=== PATIENT | male | born 1975 | race Caucasian/White ===

== ENCOUNTER 2023-01-02 11:55 | Outpatient (OUT) | payer OTHER, SELFPAY ==
--- NOTE | 2023-01-02 | XR_ITS ---
The [address] [address] Patient Name: RAZA DOOLEY MRN: [id number] date: 1975 Sex: M Assigned Patient Location: [facility] Current Patient Location: [facility] Accession/Order Number: [id number] Exam Date: 01/02/2023 09:00 Report Date: 01/02/2023 09:52 At the request of: ANUEL HARDING Procedure: XR foot RT min 3V PROCEDURE: XR foot RT min 3V HISTORY: RIGHT HEEL PAIN , heel pain COMPARISON: XR foot right 06/20/2022 FINDINGS: BONES:Mechanical fusion of the talocalcaneal joint via 3 lag screws. No convincing hardware fracture or loosening. One of the screws protrudes to the posterior lateral margin of the calcaneus. SOFT TISSUES:No visible soft tissue swelling. EFFUSION:None visible. OTHER: Negative. XR/XR foot RT min 3V IMPRESSION: 1. Stable surgical changes without evidence of hardware failure or change in alignment. 2. One of the screws protrudes through the posterior lateral margin of the calcaneus into the soft tissues and may contribute patient's symptoms, but this is unchanged. Electronically authenticated by: RADHA GREENBERG Date: 01/02/2023 09:52
== END 2023-01-02 11:56 | disposition home or self-care (01) ==
LOC: RAD 11:55
PROVIDERS: Visit Provider Podiatrist Foot & Ankle Surgery
DX: S92.001D Unspecified fracture of right calcaneus, subsequent encounter for fracture with routine healing (principal)
CPT/HCPCS: 73630

== ENCOUNTER 2023-01-10 12:59 | Outpatient (OUT) | payer OTHER, SELFPAY ==
--- NOTE | 2023-01-10 13:11 | CT_ITS ---
The [address] [address] Patient Name: RAZA DOOLEY MRN: [facility]:[id number] date: 1975 Sex: M Assigned Patient Location: CT Current Patient Location: CT Accession/Order Number: [id number] Exam Date: 01/10/2023 13:13 Report Date: 01/10/2023 14:30 At the request of: ANUEL HARDING Procedure: CT ankle RT wo con EXAM: CT ankle RT wo con, [id number] HISTORY: Calcaneus Fracture TECHNIQUE: Helical CT images of the right ankle were obtained without contrast. Multiplanar reformats were generated at the scanner. Dose reduction technique used: Automated exposure control and/or adjustment of the mA and/or kV according to patient size and/or use of iterative reconstruction technique. COMPARISON: CT right ankle 07/09/2022. Right foot x-rays 01/02/2023. FINDINGS: There are 3 talocalcaneal fixation screws which are intact and similar alignment compared with 07/09/2022. Mild lucency surrounding the bone hardware interfaces of all 3 screws is similar compared with 07/09/2022. No significant bony bridging at the talocalcaneal joint. No acute fracture, dislocation, or suspicious osseous lesion. Mild arthritis at the ankle mortise and moderate osteoarthritis at the third tarsometatarsal joint. Moderate osteoarthritis at the calcaneal cuboid joint and minimal osteoarthritis at the talonavicular joint. Laterally subluxed peroneal tendons outside of the retroareolar groove, similar compared with 07/09/2022. There is ill-defined increased attenuation in the soft tissues at the lateral ankle, similar. No loculated fluid collection. No subcutaneous emphysema. CT/CT ankle RT wo con IMPRESSION: No significant bony bridging at the talocalcaneal arthrodesis. There is similar mild lucency at the bone hardware interfaces surrounding all 3 arthrodesis screws which could indicate motion versus infection. Electronically authenticated by: JOSE GIMENEZ Date: 01/10/2023 14:30
== END 2023-01-10 13:00 | disposition home or self-care (01) ==
PROVIDERS: Visit Provider Podiatrist Foot & Ankle Surgery
DX: S92.001A Unspecified fracture of right calcaneus, initial encounter for closed fracture (principal)
CPT/HCPCS: 73700

== ENCOUNTER 2023-02-06 09:47 | Outpatient (OUT) | payer OTHER, SELFPAY ==
--- NOTE | 2023-02-06 09:54 | ECG_ITS ---
The [facility] Test Date: 2023-02-06 Pat Name: RAZA DOOLEY Department: Room: - Gender: Male Analytical Lead: : 1975 Requested By: ANUEL HARDING Order Number: [id number] Reading MD: MARK AMAYA Measurements Intervals [place] Rate: 63 P: 45 PA: 112 QRS: 65 QRSD: 98 T: 69 QT: 392 QTc: 401 Interpretive Statements SINUS RHYTHM WITH SHORT PA INTERVAL No previous ECG available for comparison Electronically Signed On 02-07-2023 6:55:25 EST by MARK AMAYA
--- NOTE | 2023-02-06 10:33 | PM.PRESUREVA ---
History of Present Illness History of Present Illness Chief complaint: Closed Displaced Fracture of Right Calcaneous Narrative: Patient presents for preadmission testing. Please see HPI from Dr. Albert dated 01/23/2023. Review of Systems ROS Narrative Pleaase see ROS from Dr. Albert dated 01/23/2023. [facility] Medical History (Updated 02/06/23 @ 10:32 by Mery Baca NP) Calcaneus fracture ?S92.009A - Unspecified fracture of unspecified calcaneus, initial encounter for closed fracture (ICD-10) GERD (gastroesophageal reflux disease) ?K21.9 - Gastro-esophageal reflux disease without esophagitis (ICD-10) Hypertension ?I10 - Essential (primary) hypertension (ICD-10) Postoperative nausea and vomiting ?R11.2 - Nausea with vomiting, unspecified (ICD-10) ?Z98.890 - Other specified postprocedural states (ICD-10) Presence of functional implant ?Z96.9 - Presence of functional implant, unspecified (ICD-10) Pseudarthrosis after fusion or arthrodesis ?M96.0 - Pseudarthrosis after fusion or arthrodesis (ICD-10) Surgical History (Updated 02/06/23 @ 10:14 by Mery Baca NP) History of foot surgery (09/26/21) ?Z98.890 - Other specified postprocedural states (ICD-10) Family History (Updated 02/06/23 @ 10:14 by Mery Baca NP) Other Family history of brain cancer Family history of diabetes mellitus Family history of hypertension Family history of lung cancer Family history of myocardial infarction Family history of stroke Social History (Updated 02/06/23 @ 10:10 by Mery Baca NP) Within the past year, how often did you have a drink containing alcohol: 2-4 times a month Smoking status: Former smoker Highest level of school completed/degree received: high school graduate Meds Home Medications and Allergies Home Medications Medication Instructions Recorded Confirmed Type cholecalciferol (vitamin D3) 50 50 mcg PO DAILY 02/06/23 02/06/23 History mcg (2,000 unit) capsule losartan 100 mg tablet 100 mg PO DAILY 02/06/23 02/06/23 History meloxicam 15 mg tablet mg PO DAILY PRN pain 02/06/23 History metoprolol tartrate 25 mg tablet 12.5 mg PO Q12H 02/06/23 02/06/23 History omeprazole 20 mg capsule,delayed 20 mg PO DAILY 02/06/23 02/06/23 History release Allergies Allergy/AdvReac Type Severity Reaction Status Date / Time Penicillins Allergy Hives Verified 02/06/23 10:05 Exam Narrative Exam Narrative: Constitutional: Awake, alert, comfortable, well-appearing, nontoxic, interactive, vital signs as charted Head: Normocephalic, atraumatic Neck: Supple, normal appearance, normal range of motion, no meningeal signs, no lymphadenopathy Respiratory: No respiratory distress, breath sounds clear Cardiovascular: Regular rate and rhythm, strong and regular heart tones Neuro: No neurological deficits, normal sensation Psychiatric: Oriented ?3, normal affect Assessment and Plan Assessment and Plan (1) Calcaneus fracture: (2) Presence of functional implant: (3) Pseudarthrosis after fusion or arthrodesis: Plan Right subtalar joint fusion revision, hardware removal, excision of nonunion, possible calcaneal osteotomy, ankle arthrotomy, bone grafting, soft tissue releases scheduled with Dr. Albert 02/18/2023.
== END 2023-02-06 09:48 | disposition home or self-care (01) ==
LOC: PST 09:49
PROVIDERS: Visit Provider Podiatrist Foot & Ankle Surgery
DX: Z01.810 Encounter for preprocedural cardiovascular examination (principal); S92.001A Unspecified fracture of right calcaneus, initial encounter for closed fracture
CPT/HCPCS: 93005; G0463

== ENCOUNTER 2023-02-18 06:14 | Day surgery (SDC) | payer OTHER, SELFPAY ==
[2023-02-06 10:29] VITALS: BP 161/98; PULSE 71; RESP 16; TEMP 36.3; O2SAT 97; BMI 23.6
[2023-02-18] VITALS (13 sets, daily range): BP systolic 109–134; BP diastolic 56–81; PULSE 62–89; RESP 12–36; TEMP 36.1–36.2; O2SAT 93–99; BMI 23.6
--- NOTE | 2023-02-18 | FL_ITS ---
[address] [address] Patient Name: RAZA DOOLEY MRN: [facility]:[id number] date: 1975 Sex: M [facility] Current Patient Location: Accession/Order Number: [id number] Exam Date: 02/18/2023 07:30 Report Date: 02/19/2023 08:13 At the request of: ANUEL HARDING Procedure: FL fluoroscopy <1hr NON-READ EXAM: FL fluoroscopy <1hr NON-READ HISTORY: IMAGING IN OR, RIGHT FOOT PAIN TECHNIQUE: FINDINGS: Please see Operative Report. Electronically authenticated by: RADIOLOGIST NO Date: 02/19/2023 08:13
[2023-02-18 06:35] LABS: Basophils Absolute Auto 0.1 10^3/uL (0.0-0.1); Basophils Percent Auto 0.8 % (0.2-2.0); Eosinophils Absolute Auto 0.2 10^3/uL (0.0-0.7); Eosinophils Percent Auto 3.5 % (0.9-7.0); Hematocrit 41.6 % (42.0-54.0); Hemoglobin 13.6 g/dL (14.0-18.0); Immature Granulocytes Abs Auto 0.01 10^3/uL (0.00-0.03); Immature Granulocytes Pct Auto 0.2 % (0.0-0.5); Lymphocytes Absolute Auto 1.5 10^3/uL (1.2-3.8); Lymphocytes Percent Auto 23.6 % (20.5-60.0); Mean Corpuscular HGB Conc 32.7 g/dL (29.9-35.2); Mean Corpuscular Hemoglobin 30.9 pg (25.9-34.0); Mean Corpuscular Volume 94.5 fL (80.0-94.0); Mean Platelet Volume 8.5 fL (9.5-13.5); Monocytes Absolute Auto 0.6 10^3/uL (0.3-0.8); Monocytes Percent Auto 9.7 % (1.7-12.0); Neutrophils Percent Auto 62.2 % (43.0-75.0); Platelet Count 241 10^3/uL (150-450); White Blood Count 6.4 10^3/uL (4.0-11.0)
[2023-02-18 06:45] LABS: Glucometer 102 mg/dL (74-106)
[2023-02-18] MEDS: LACTATED RINGER'S SOLUTION 1,000 ML 50 ML IV ×2 (07:04→10:16)
--- NOTE | 2023-02-18 07:46 | PM.ORONB ---
Brief Operative Note Date of procedure: 02/18/23 Pre-op diagnosis: right calcaneus fracture, nonunion of subtalar joint fusion Post-op diagnosis: other (right calcaneus fracture, nonunion of subtalar joint fusion, ankle impingement and peroneal tendon tear with dislocation) Procedure: PROCEDURES PERFORMED: RIGHT subtalar joint fusion with excision of nonunion, peroneal tendon repair with fibular osteotomy, harvest of distal tibial bone graft, removal of hardware, stress examination under intraoperative fluoroscopy & application of short leg splint INTRAOPERATIVE FINDINGS: hindfoot in valgus alignment with subfibular impingement and ankle impingement. 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 Peroneal tendon tear with dislocation of the tendons from the fibular groove. The bone quality of the tibia, talus and calcaneus within normal limits. PROCEDURE IN DETAIL: Patient was identified in pre op and consent was reviewed. Correct side and site were identified and marked. Pre-op antibiotics were started. Patient was brought to OR suite and place on table in a supine position. General anesthesia was administered. Tourniquet applied. Operative extremity was prepped and draped in usual sterile fashion. Formal time-out was performed and the foot/ankle were exsanguinated and tourniquet inflated. fluoroscopy was used to identify the screw heads on the posterior calcaneal tuberosity and talar neck. Stab incisions were placed over the screw heads and blunt dissection down to the screw heads was performed. bony overgrowth noted of the screw head within the talar neck which required the incision to be extended in order to clear the bone from the screw head. Guidewires were inserted into the existing screws and after all bone was removed around the screws they were removed with appropriate screwdriver. The screw holes were thoroughly curetted until healthy bleeding bone was notable. Surgical site was irrigated with copious saline. An incision from fibular malleolus to the cuboid was undertaken. Combination of sharp and blunt dissection gained access to the sinus tarsi. All bleeders were tied off or cauterized. EDB muscle was reflected and tagged for later approximation. Sinus tarsectomy was then performed. Hintermann distractor was used to access the subtalar joint which was prepped with curettes, osteotomes, rongeurs and a paddled bur. All fibrous tissue was excised from the joint and no infection was noted. The posterior and the middle facet were thoroughly prepped. once the subtalar joint was prepared range of motion demonstrated dislocation of the peroneal tendons. Surgical site was irrigated several times throughout the procedure. Cerament bone void filler was injected into the screw holes and allowed to harden accordingly the incision used to remove the screw from the talar head was extended proximally thereby exposing the distal tibia. Soft tissue impingement was removed with rongeur as was osteophyte noted on the distal tibia and talar neck which was then smoothed with a rasp. The ankle now had full range of motion without impingement. The incision was then extended proximally over the distal tibia metaphysis. Sharp and blunt dissection down to periosteum was performed. The periosteum was sharply reflected. An 8mm bone harvester was then used according to the flight readiness technician's standard directions to obtain cancellus autograft. 5 cc was obtained and was then mixed with Sparc allograft on the back table. bone graft was then packed into the subtalar joint. The harvest site was then packed with Gelfoam and bone allograft. The periosteum was meticulously reapproximated with absorbable suture and skin was closed with nonabsorbable suture after the site was irrigated. A guidewire was placed from the talar neck and was directed from the talar neck across the subtalar joint and into the calcaneus while holding the heel in a neutral position. Fluoroscopy confirmed proper placement. An 8 mm fully threaded bolt was place over the guidewire and under fluoroscopic guidance. compression was noted of the posterior facet. An additional guide wire was placed placed from the calcaneal tuberosity into the talar body under fluoroscopic guidance. Fluoroscopy confirmed deformity correction and proper placement of the wire. Then an additional 8 mm fully threaded bolt was placed over this wire with additional compression noted across the subtalar joint. Guidewires were then removed and screw position was evaluated on fluoroscopy. Surgical site was irrigated with copious saline. the ankle joint was then stressed in varus, valgus and anterior drawer and was notably stable. The lateral subtalar joint incision was then extended proximally allowing full exposure of the peroneal tendons in the fibular groove. Tendons were debrided and repaired with absorbable suture however with range of motion the tendons did continue to sublux therefore decision was made to perform groove deepening of the fibula. A bur was used to deepen the groove and once of adequate depth the tendons were relocated and were stable with range of motion. The peroneal retinaculum was then repaired with a pants over vest suture technique using absorbable suture. Incisions were then closed in layers and a tourniquet was dropped with a prompt hyperemic response.A dry sterile dressing consisting of Xeroform on the incisions followed by 4 x 4 gauze, ABDs, and Kerlix were applied. Multiple layers of cast padding were then applied to ensure all bony prominences were well-padded. A plaster posterior splint was then applied which was held in place by Darrel wraps. Capillary refill time to all digits was evaluated and had appropriate response. Patient tolerated the procedure and anesthesia well transferred to the recovery room with vital signs stable and brisk capillary refill to digits. POSTOPERATIVE PLAN: Discharge home under family's care Post op instructions provided verbally and written prescription(s) were placed in chart NWB operative foot/ankle x6 wks Follow-up in 1 week Implants: Vilex Redemption 8 mm Bolts (x2); Cerament & Sparc bone allograft Anesthesia: regional and General-LMA Surgeon: Epi Albert Senior Storage Engineer: Honorio Yun Estimated blood loss (mL): 10 Condition: stable Disposition: PACU Preoperative Details Reason for procedure: patient is a 47-year-old male who sustained a right calcaneus fracture as part of a work related injury. His injury required subtalar joint fusion on 09/26/2021. His postoperative course complicated by incision dehiscence which ultimately healed with local wound care. In addition over last year he has pain and dysfunction associated with his right foot and ankle have only worsened and a CT scan obtained last month demonstrated periprosthetic loosening around the hardware and non-united subtalar joint fusion. Today in preoperative holding his exam was consistent with that exam performed on 01/23/23 with pain around the sinus tarsi, pain noted with attempted frontal plane range of motion, pain around the screws in the posterior heel and anterior ankle. There is also pain with maximum ankle joint dorsiflexion which is limited to zero degrees with the knee flexed and extended. Given his painful nonunion which is not improved over the last six months despite activity modification, immobilization, and OTC pain medicine patient wished to proceed with surgical revision and he was educated all potential risks and benefits.
[2023-02-18] MEDS: CLINDAMYCIN PHOSPHATE/D5W 900 MG/50 ML PIGGYBACK 100 MG IV (07:53)
--- NOTE | 2023-02-18 08:12 | PC.NURSE ---
Consent signed with and reviewed again by nurse with the patient. Patient positioned onto abdomen for popliteal block, O2 applied and patient medicated per . Timeout was performed at 0740, block started at 0741 and ended at 0750. Patient monitored throughout block and until taken to OR. Patient tolerated block well.
[2023-02-18] MEDS: THROMBI-GEL SIZE 40 HEMOSTAT 1 EACH TOPICAL (09:52)
--- NOTE | 2023-02-18 10:47 | XR_ITS ---
The [address] [address] Patient Name: RAZA DOOLEY MRN: [facility]:[id number] date: 1975 Sex: M Assigned Patient Location: [facility] Current Patient Location: [facility] Accession/Order Number: [id number] Exam Date: 02/18/2023 11:27 Report Date: 02/19/2023 08:42 At the request of: ANNA THOMPSON Procedure: XR ankle RT min 3V PROCEDURE: XR ankle RT min 3V, XR foot RT min 3V HISTORY: postop x-ray PACU COMPARISON: XR foot right 01/02/2023 FINDINGS: BONES:Prior talocalcaneal fusion with interval removal of one of the screws; there are 2 screws remain. Evidence of bone harvesting from distal tibia. SOFT TISSUES:Mild soft tissue swelling anterior to the ankle. Images were obtained to cast material. EFFUSION:None visible. OTHER: Negative. XR/XR ankle RT min 3V IMPRESSION: 1. Interval removal of one of the screws from prior talocalcaneal fusion. Electronically authenticated by: RADHA GREENBERG Date: 02/19/2023 08:42
--- NOTE | 2023-02-18 10:47 | XR_ITS ---
The [address] [address] Patient Name: RAZA DOOLEY MRN: [facility]:[id number] date: 1975 Sex: M Assigned Patient Location: [facility] Current Patient Location: [facility] Accession/Order Number: [id number] Exam Date: 02/18/2023 11:27 Report Date: 02/19/2023 08:42 At the request of: ANNA THOMPSON Procedure: XR foot RT min 3V PROCEDURE: XR ankle RT min 3V, XR foot RT min 3V HISTORY: postop x-ray PACU COMPARISON: XR foot right 01/02/2023 FINDINGS: BONES:Prior talocalcaneal fusion with interval removal of one of the screws; there are 2 screws remain. Evidence of bone harvesting from distal tibia. SOFT TISSUES:Mild soft tissue swelling anterior to the ankle. Images were obtained to cast material. EFFUSION:None visible. OTHER: Negative. XR/XR foot RT min 3V IMPRESSION: 1. Interval removal of one of the screws from prior talocalcaneal fusion. Electronically authenticated by: RADHA GREENBERG Date: 02/19/2023 08:42
[2023-02-18 11:16] LABS: Glucometer 129 mg/dL (74-106)
[2023-02-18] MEDS: HYDROMORPHONE HCL 0.5 MG/0.5 ML SYRINGE IV (11:22)
[2023-02-18] MEDS: OXYCODONE HCL/ACETAMINOPHEN 5MG/325MG 1 TAB PO (11:23)
== END 2023-02-18 12:30 | disposition home or self-care (01) ==
PROVIDERS: Visit Provider Podiatrist Foot & Ankle Surgery
PROC: (CPT 20680; principal; 2023-02-18 07:30)
DX: S92.001A Unspecified fracture of right calcaneus, initial encounter for closed fracture (principal); M96.0 Pseudarthrosis after fusion or arthrodesis; M25.871 Other specified joint disorders, right ankle and foot; S86.311A Strain of muscle(s) and tendon(s) of peroneal muscle group at lower leg level, right leg, initial encounter
CPT/HCPCS: 20680; 20902; 27625; 27676; 28725; 36415; 64445; 73610; 73630; 76000; 82948; 85025; C1713; J1170

== ENCOUNTER 2023-03-12 09:40 | Outpatient (OUT) | payer OTHER, SELFPAY ==
--- NOTE | 2023-03-12 | XR_ITS ---
The [address] [address] Patient Name: RAZA DOOLEY MRN: [id number] date: 1975 Sex: M Assigned Patient Location: [facility] Current Patient Location: [facility] Accession/Order Number: [id number] Exam Date: 03/12/2023 10:09 Report Date: 03/12/2023 12:24 At the request of: ANUEL HARDING Procedure: XR foot RT min 3V EXAM: XR foot RT min 3V HISTORY: RIGT FOOT PAIN COMPARISON: Foot radiographs from 02/18/2023 TECHNIQUE: AP, lateral, oblique radiographs of the foot labeled right FINDINGS: Postsurgical changes of talocalcaneal fusion revision with two surgical screws in place. No acute fracture or dislocation. Soft tissue swelling about the ankle most notably medially. Heterotopic ossification within the pretibial soft tissues is increased from prior. The subtalar joints are not fused this time. No acute fracture or dislocation. XR/XR foot RT min 3V IMPRESSION: 1. Postsurgical changes of the talocalcaneal fusion revision with unchanged alignment. 2. Increased heterotopic ossification anterior to the tibia. Electronically authenticated by: RAVINDER RUBIO Date: 03/12/2023 12:24
== END 2023-03-12 09:41 | disposition home or self-care (01) ==
LOC: RAD 09:40
PROVIDERS: Visit Provider Podiatrist Foot & Ankle Surgery
DX: S92.001A Unspecified fracture of right calcaneus, initial encounter for closed fracture (principal)
CPT/HCPCS: 73630

== ENCOUNTER 2023-04-02 09:42 | Outpatient (OUT) | payer OTHER, SELFPAY ==
--- NOTE | 2023-04-02 | XR_ITS ---
The [address] [address] Patient Name: RAZA DOOLEY MRN: [id number] date: 1975 Sex: M Assigned Patient Location: [facility] Current Patient Location: [facility] Accession/Order Number: [id number] Exam Date: 04/02/2023 09:45 Report Date: 04/02/2023 10:37 At the request of: ANUEL HARDING Procedure: XR foot RT min 3V STUDY: XR foot RT min 3V, [id number] HISTORY: RIGHT FOOT PAIN COMPARISON: Right foot x-rays 03/12/2023. FINDINGS/IMPRESSION: No acute fracture, dislocation, or suspicious osseous lesion. Status post talocalcaneal arthrodesis. There is been interval bony bridging across the talocalcaneal joint which is near completely ankylosed. The arthrodesis hardware is intact and similar alignment. Mild lucency at the bone hardware interface along the medial arthrodesis screw is similar compared with 03/12/2023. No definite new or worsening lucency at the bone hardware interface. Heterotopic ossification along the soft tissues just anterior to the ankle, similar. Moderate osteoarthritis at the calcaneocuboid joint and mild osteoarthritis at the first metatarsophalangeal joint. Electronically authenticated by: JOSE GIMENEZ Date: 04/02/2023 10:37
== END 2023-04-02 09:43 | disposition home or self-care (01) ==
LOC: RAD 09:42
PROVIDERS: Visit Provider Podiatrist Foot & Ankle Surgery
DX: M96.0 Pseudarthrosis after fusion or arthrodesis (principal)
CPT/HCPCS: 73630

== ENCOUNTER 2023-04-23 09:29 | Outpatient (OUT) | payer OTHER, SELFPAY ==
--- NOTE | 2023-04-23 | XR_ITS ---
The [address] [address] Patient Name: RAZA DOOLEY MRN: [id number] date: 1975 Sex: M Assigned Patient Location: [facility] Current Patient Location: [facility] Accession/Order Number: [id number] Exam Date: 04/23/2023 09:40 Report Date: 04/23/2023 11:27 At the request of: ANUEL HARDING Procedure: XR foot RT min 3V PROCEDURE: XR foot RT min 3V COMPARISON: 04/02/2023 HISTORY: RIGHT FOOT PAIN FINDINGS: BONES:Stable subtalar fusion. Remote resection posterior inferior calcaneus. No acute fracture or dislocation. Stable degenerative changes with joint space narrowing and marginal osteophyte formation. Area of heterotopic calcification anterior to the tibiotalar joint, unchanged SOFT TISSUES:Negative. No visible soft tissue swelling. EFFUSION:None visible. OTHER: Negative. XR/XR foot RT min 3V IMPRESSION: Stable postsurgical changes Electronically authenticated by: MANUELITO LARA Date: 04/23/2023 11:27
--- OUTSIDE RECORDS SUMMARY | 2023-04-23 09:34 | XMS_ITS | CCD ---
Author Name Unknown Address [address] [place] [address] Organization [facility] Care Team Providers Care Field Service Coordinator Name Role Phone NO FAMILY, PHYSICIAN Primary Care Provider Unava JEANNA Tariq Attending Provider Rodrigue Harper MD Primary Care Provider JOSE ALEJANDRO, RODRIGUE Primary Care Unavailable ANUEL ALBERT Referring Unavailable GHAZARIAN, RODRIGUE Primary Care Unavailable GHAZARIAN, [facility] Primary Care Unavailable GHAZARIAN, RODRIGUE Primary Care Unavailable ANUEL ALBERT Referring Unavailable GHAZARIAN, RODRIGUE Primary Care Unavailable ANUEL ALBERT Referring Unavailable GHAZARIAN, RODRIGUE Primary Care Unavailable GHAZARIAN, RODRIGUE Primary Care Unavailable GHAZARIAN, RODRIGUE Primary Care Unavailable ANUEL ALBERT Attending Unavailable MISC, DR APPIAH Primary Care Unavailable ANUEL ALBERT Admitting Unavailable ANUEL ALBERT Attending Unavailable MISGianluca, DR APPIAH Primary Care Unavailable ANUEL ALBERT Admitting Unavailable ANUEL ALBERT Attending Unavailable ANUEL ALBERT Consulting Unavailable ANUEL ALBERT Admitting Unavailable PETER WIGGINS Consulting Unavailable ANUEL ALBERT Admitting Unavailable MISC, DR APPIAH Primary Care Unavailable ANUEL ALBERT Attending Unavailable ANUEL ALBERT Admitting Unavailable WEST, DR MANUELITO Jones Consulting Unavailable MISC, DR APPIAH Primary Care Unavailable ANUEL ALBERT Attending Unavailable ANUEL ALBERT Consulting Unavailable ANUEL ALBERT Admitting Unavailable MISC, DR APPIAH Primary Care Unavailable ANUEL ALBERT Attending Unavailable ANUEL ALBERT Admitting Unavailable WEST, DR MANUELITO Jones Consulting Unavailable ANUEL ALBERT Attending Unavailable MISC, DR APPIAH Primary Care Unavailable ANUEL ALBERT Consulting Unavailable ANUEL ALBERT Attending Unavailable ANUEL ALBERT Admitting Unavailable SAVAGE ., DR JAYLYN Denson Consulting Unavailable Nirmal Lyons Consulting Unavailable ANUEL ALBERT Consulting Unavailable PHILLY VILLANUEVA Consulting Unavailable LÓPEZ ., NGHIA Consulting Unavailable NICOLASA COSBY Consulting Unavailable NIRMAL MARIE Consulting Unavailable MISC, DR APPIAH Primary Care Unavailable SHERRON, NEIL Admitting Unavailable SHERRON, NEIL Attending Unavailable Nirmal Lyons Consulting Unavailable NEIL SIU Consulting Unavailable ANUEL ALBERT Admitting Unavailable WEST, DR MANUELITO Jones Consulting Unavailable MISC, DR APPIAH Primary Care Unavailable MEHDI, ANUEL Raman Attending Unavailable ANUEL ALBERT Consulting Unavailable SHERRON, NEIL Attending Unavailable Nirmal Lyons Consulting Unavailable SHERRON, NEIL Admitting Unavailable SHERRON, NEIL Consulting Unavailable MISC, DR APPIAH Primary Care Unavailable MISC, DR APPIAH Consulting Unavailable SHERRON, NEIL Attending Unavailable SHERRON, NEIL Admitting Unavailable SHERRON, NEIL Consulting Unavailable ANUEL ALBERT Attending Unavailable ANUEL ALBERT Admitting Unavailable ANUEL ALBERT Consulting Unavailable Manuelito Montoya Consulting Unavailable HIGHLANUEL SCHWARTZ Admitting Unavailable WEST, DR MANUELITO Jones Consulting Unavailable REQUEST, DR CAMARENA LISTED Primary Care Unavaila ble ANUEL ALBERT Attending Unavailable ANUEL ALBERT Consulting Unavailable ANUEL ALBERT Admitting Unavailable MIS, DR APPIAH Primary Care Unavailable WEST, DR MANUELITO Jones Consulting Unavailable ANUEL ALBERT Attending Unavailable ANUEL ALBERT Consulting Unavailable Allergies Allergy Classification Reported Allergen(s) Allergy Type Date of Onset Reaction(s) Facility (8 sources) Penicillins Allergy to substance 02-05-2012 [facility] (1 source) Penicillin Drug Allergy [facility] Repository Medications Current Medications Medication Drug Class(es) Dates Sig (Normalized) Sig (Original) acetaminophen 325 mg / HYDROcodone bitartrate 5 mg oral tablet (1 source) Opioid Agonist Start: 01-15-2017 Hydrocodone-Acetamin ophen Active 10 TAB PO every 6 to 8 hours January 15, 2017 2:28pm cyclobenzaprine hydrochloride 10 mg oral tablet (1 source) Muscle Relaxant Start: 01-15-2017 take 10 mg by mouth three times daily Cyclobenzaprine Active 10 MG PO Three times daily January 15, 2017 2:23pm ibuprofen 800 mg oral tablet (7 sources) Nonsteroidal Anti-inflammatory Drug Start: 12-08-2021 take 1 tablet by mouth every eight hours as needed for pain ibuprofen (ADVIL;MOTRIN) 800 MG tablet TAKE 1 TABLET BY MOUTH EVERY 8 HOURS NEEDED FOR PAIN 0 12/08/2021 Active losartan potassium 100 mg oral tablet (7 sources) Angiotensin 2 Receptor Carson Start: 12-26-2021 take 1 tablet by mouth once daily losartan (COZAAR) 100 MG tablet Indications: Essential hypertension Take 1 tablet by mouth daily 90 tablet 1 12/26/2021 Active omeprazole 40 mg delayed release oral capsule (1 source) Proton Pump Inhibitor Start: 01-15-2017 take 40 mg by mouth once daily Omeprazole Active 40 MG PO Daily January 15, 2017 1:45pm Problems Active Problems Problem Classification Problem Date Documented Da te Episodic/Chronic Chronic ulcer of skin (10 sources) Non-pressure chronic ulcer of right ankle with fat layer exposed; Translations: [Non-pressure chronic ulcer of right ankle limited to breakdown of skin] Onset: 11-24-2021 Chronic Esophageal disorders (1 source) Gastro-esophageal reflux disease without esophagitis; Translations: [GERD WITHOUT ESOPHAGITIS] Onset: 10-02-2021 Chronic Essential hypertension (8 sources) Essential hypertension; Translations: [Essential (primary) hypertension] Onset: 05-16-2020 05-16-2020 Chronic Fracture of lower limb (16 sources) Unspecified fracture of right calcaneus, initial encounter for closed fracture; Translations: [Unspecified fracture of right calcaneus, subsequent encounter for fracture with routine healing] Onset: 09-05-2021 Episodic Sprains and strains (1 source) Low back strain; Translations: [Strain of muscle, fascia and tendon of lower back, initial encounter] 01-15-2017 Episodic Unclassified (1 source) CONTACT W/AND (SUSP) EXPOS COVID-19; Translations: [CONTACT W/AND (SUSP) EXPOS COVID-19] Onset: 09-27-2021 Past or Other Problems Problem Classification Problem Date Documented Da te Episodic/Chronic Complications of surgical procedures or medical care (1 source) Disruption of traumatic injury wound repair, sequela; Translations: [DISRUPT TRAUMAT INJ WND REPAIR SEQ] Onset: 01-10-2022 Episodic E Codes: Fall (1 source) Other fall from one level to another, sequela; Translations: [OTH FALL 1 LEVEL TO ANOTHER SEQUELA] Onset: 12-06-2021 Episodic Open wounds of extremities (4 sources) Unspecified open wound, right ankle, initial encounter; Translations: [UNS OPEN WOUND RIGHT ANKLE INITIAL] Onset: 11-20-2021 Episodic Other connective tissue disease (4 sources) Pain in right foot; Translations: [PAIN IN RIGHT FOOT] Onset: 11-20-2021 Episodic Other non-traumatic joint disorders (1 source) Pain in right ankle and joints of right foot; Translations: [PAIN IN RIGHT ANKLE] Onset: 01-10-2022 Episodic Results Test Name Value Interpretation Reference Range Facility CT ANKLE RT WO CONon 023 CT ANKLE RT WO CON EXAMINATION: CT ANKLE RT WO CON HISTORY: Fracture of calcaneus COMPARISON: 09/05/2021 TECHNIQUE: Multi-planar CT images were created without IV contrast. Dose reduction techniques were achieved by using automated exposure control and/or adjustment of mA and/or kV according to patient size and/or use of iterative reconstruction technique. FINDINGS: BONES: Remote healed complex calcaneus fracture with subtalar fusion utilizing 3 screws. 2 of the screws extend from posterior inferior to anterior superior a third screw extends from anterior superior to the posterior calcaneal margin with the screw extending 2 mm beyond the posterior inferior cortex of the calcaneus. No new fracture or dislocation. SOFT TISSUES: Negative. No visible soft tissue swelling. EFFUSION: None visible. OTHER: Negative. IMPRESSION: Remote healed complex calcaneus fracture with internal fixation. One of the subtalar screws extends 8.2 mm beyond the cortex of the posterior inferior calcaneus into the adjacent fat pad of the heel Electronically authenticated by: MANUELITO LARA Date: 2022-07-09 18:28 Normal [facility] WOUND CULTUREon 11-25-2021 Antimicrobial Susceptibility Comment Normal [facility] Comment on above: Result Comment: S = Susceptible; I = Intermediate; R = Resistant P = Positive; N = Negative MICS are expressed in micrograms per mL Antibiotic RSLT#1 RSLT#2 RSLT#3 RSLT#4 Amikacin S Ampicillin R Cefazolin R Cefepime S S Ceftazidime S Ceftriaxone R Cefuroxime R Ciprofloxacin S S Gentamicin S S Imipenem S Levofloxacin S Meropenem S S Piperacillin S Tetracycline R Ticarcillin R Tobramycin S S Trimethoprim/Sulfa S Performed By: #### C XWND ####[facility] [address] [place], [place] [address]Dr. Juan Carlos Francis Bacteria identified Aer cx Nom (Unsp spec) Final report Abnormal [facility] Comment on above: Performed By: #### C XWND ####[facility] [address] [place], [place] [address]Dr. Juan Carlos Francis Result 1 Proteus hauseri Abnormal [facility] Comment on above: Result Comment: Mult i-Drug Resistant Organism Susceptibility profile is consistent with a probable ESBL. Heavy growth Performed By: #### C XWND ####[facility] [address] [place], [place] [address]Dr. Juan Carlos Francis Result 2 Comment Abnormal [facility] Comment on above: Result Comment: Pseu domonas aeruginosa Heavy growth Performed By: #### C XWND ####[facility] P[address] [place], [place] [address]Dr. Juan Carlos Francis CBC AUTO DIFFon 11-20-2021 BASO # 0.1 103/ul Normal 0.0-0.1 [facility] Comment on above: Performed By: #### C BC ####[facility] [address] [place], [place] [address]Dr. Juan Carlos Francis Basophils/100 WBC (Bld) 0.6 % Normal 0.2-2.0 [facility] Comment on above: Performed By: #### C BC ####[facility] [address] [place], [place] [address]Dr. Juan Carlos Francis EO # 0.2 103/ul Normal 0.0-0.7 [facility] Comment on above: Performed By: #### C BC ####[facility] Sit[address] [place], [place] [address]Dr. Juan Carlos Francis Eosinophils/100 WBC (Bld) 2.4 % Normal 0.9-7.0 [facility] Comment on above: Performed By: #### C BC ####[facility] [address] [place], [place] [address]Dr. Juan Carlos Francis Erythrocyte distribution width (RBC) [Ratio] 13.2 % Normal 11.0-15.0 [facility] Comment on above: Performed By: #### C BC ####[facility] [address] [address]Dr. Juan Carlos Francis Hematocrit (Bld) [Volume fraction] 43.4 % Normal 42.0-54.0 [facility] Comment on above: Performed By: #### C BC ####[facility] [address] [place], [place] [address]Dr. Juan Carlos Francis Hemoglobin (Bld) [Mass/Vol] 14.5 g/dL Normal 14.0-18.0 [facility] Comment on above: Performed By: #### C BC ####[facility] Z[address]oly[address] [place], [place] [address]Dr. Juan Carlos Francis IG # 0.02 10e3/ul Normal 0.00-0.03 [facility] Comment on above: Performed By: #### C BC ####[facility] [address] [place], [place] [address]Dr. Siennagualberto Francis IG % 0.2 % Normal 0.0-0.5 [facility] Comment on above: Performed By: #### C BC ####[facility] [address] [place], [place] [address]Dr. Juan Carlos Tito LYMPH # 1.6 103/ul Normal 1.2-3.8 [facility] Comment on above: Performed By: #### C BC ####[facility] [address] [place], [place] [address]Dr. Siennagualberto Francis Lymphocytes/100 WBC (Bld) 20.3 % Critically low 20.5-60.0 [facility] Comment on above: Performed By: #### C BC ####[facility] [address] [place], [place] [address]Dr. Siennagualberto Francis MANUAL DIFF REQ NO Normal [facility] Comment on above: Performed By: #### C BC ####[facility] [address] [place], [place] [address]Dr. Juan Carlos Francis MCH (RBC) [Entitic mass] 29.8 pg Normal 25.9-34.0 [facility] Comment on above: Performed By: #### C BC ####[facility] [address] [address]Dr. Juan Carlos Francis MCHC (RBC) [Mass/Vol] 33.4 g/dL Normal 29.9-35.2 [facility] Comment on above: Performed By: #### C BC ####[facility] [address] [place], [place] [address]DrFortino Francis MCV (RBC) [Entitic vol] 89.1 fL Normal 80.0-94.0 [facility] Comment on above: Performed By: #### C BC ####[facility] Tim[address] [place], [place] [address]DrFortino Francis MONO # 0.6 103/ul Normal 0.3-0.8 [facility] Comment on above: Performed By: #### C BC ####[facility] [address] [place], [place] [address]Dr. Juan Carlos Francis Monocytes/100 WBC (Bld) 6.9 % Normal 1.7-12.0 [facility] Comment on above: Performed By: #### C BC ####[facility] [address] [place], [place] [address]DrFortino Francis NEUT # 5.6 103/ul Normal 1.4-6.5 [facility] Comment on above: Performed By: #### C BC ####[facility] [address] [place], [place] [address]DrFortino Francis Neutrophils/100 WBC (Bld) 69.6 % Normal 43.0-75.0 [facility] Comment on above: Performed By: #### C BC ####[facility] [address] [place], [place] [address]DrFortino Francis Platelet mean volume (Bld) [Entitic vol] 8.3 fL Critically low 9.5-13.5 [facility] Comment on above: Performed By: #### C BC ####[facility] [address] [place], [place] [address]DrFortino Francis PLT 352 103/ul Normal 150-450 [facility] Comment on above: Performed By: #### C BC ####[facility] [address] [address]DrFortino Francis RBC 4.87 106/ul Normal 4.70-6.10 [facility] Comment on above: Performed By: #### C BC ####[facility] [address] [id number] Francis WBC 8.1 103/ul Normal 4.0-11.0 [facility] Comment on above: Performed By: #### C BC ####[facility] [address] [address]DrFortino Francis CRPon 11-20-2021 CRP [Mass/Vol] mg/L Normal <=1.0 [facility] Comment on above: Performed By: #### B MP, CRP #### [facility] [address] [address] [address] Juan Carlos STEELE STAINon 11-20-2021 DIPHTHEROIDS Normal [facility] Comment on above: Performed By: #### G STAIN #### [facility] [address] [address] [address] Juan Carlos Francis EPITHELIALS Normal [facility] Comment on above: Performed By: #### G STAIN #### [facility] [address] [address] [address] Juan Carlos Francis FUNGAL ELEMENTS Normal [facility] Comment on above: Performed By: #### G STAIN #### [facility] [address] [address] [address] Juan Carlos STEELE NEG BACILLI FEW Normal [facility] Comment on above: Performed By: #### G STAIN #### [facility] [address] [address] [address] Juan Carlos STEELE NEG DIPPLOCOCCI Normal [facility] Comment on above: Performed By: #### G STAIN #### [facility] [address] [address] [address] Juan Carlos STEELE POS BACILLI Normal [facility] Comment on above: Performed By: #### G STAIN #### [facility] [address] [place] [address] Dr. Juan Carlos Francis GRAM POSITIVE COCCI FEW Normal [facility] Comment on above: Performed By: #### G STAIN #### [facility] [address] [place] [address] Dr. Juan Carlos Francis GRAM STAIN SOURCE Rt Lateral Ankle Normal T [facility] Comment on above: Performed By: #### G STAIN #### [facility] [address] [place] [address] Dr. Juan Carlos Francis GS_DIPTH Normal [facility] Comment on above: Performed By: #### G STAIN #### [facility] [address] [place] [address] Dr. Juan Carlos Francis WBC RARE Normal [facility] Comment on above: Performed By: #### G STAIN #### [facility] [address] [place] [address] Dr. Juan Carlos Francis PROF CHEM 8 (BAS METB)on Anion gap [Moles/Vol] 14.2 mmol/L [facility] Comment on above: Performed By: #### B MP, CRP #### [facility] [address] [place] [address] Dr. Juan Carlos Francis Calcium [Mass/Vol] 9.1 mg/dL Normal 8.5-10.1 [facility] Comment on above: Performed By: #### B MP, CRP #### [facility] [address] [place] [address] Dr. Juan Carlos Francis Chloride [Moles/Vol] 100 mmol/L Normal 98-107 [facility] Comment on above: Performed By: #### B MP, CRP #### [facility] [address] [place] [address] Dr. Juan Carlos Francis CO2 [Moles/Vol] 30.2 mmol/L Normal 21.0-32.0 [facility] Comment on above: Performed By: #### B MP, CRP #### [facility] [address] [place] [address] Dr. Juan Carlos Francis Creatinine [Mass/Vol] 1.02 mg/dL Normal 0.70-1.30 [facility] Comment on above: Performed By: #### B MP, CRP #### [facility] [address] [place] [address] Dr. Juan Carlos Francis EGFR-AF CHINESE >60 Normal >=60 [facility] Comment on above: Performed By: #### B MP, CRP #### [facility] [address] [address] [address] Juan Carlos Francis EGFR-NON AF CHINESE >60 Normal >=60 [facility] Comment on above: Performed By: #### B MP, CRP #### [facility] [address] [address] [address] Juan Carlos Francis Glucose [Mass/Vol] 113 mg/dL Critically high 74-106 [facility] Comment on above: Performed By: #### B MP, CRP #### [facility] [address] [place] [address] Dr. Juan Carlos Francis Potassium [Moles/Vol] 4.4 mmol/L Normal 3.5-5.1 [facility] Comment on above: Performed By: #### B MP, CRP #### [facility] [address] [place] [address] Dr. Juan Carlos Francis Sodium [Moles/Vol] 140 mmol/L Normal 136-145 [facility] Comment on above: Performed By: #### B MP, CRP #### [facility] [address] [place] [address] Dr. Juan Carlos Francis Urea nitrogen [Mass/Vol] 11.0 mg/dL Normal 7.0-18.0 [facility] Comment on above: Performed By: #### B MP, CRP #### [facility] [address] [place] [address] Dr. Juan Carlos Francis Urea nitrogen/Creatinine [Mass ratio] 10.8 mg/mg Normal [facility] Comment on above: Performed By: #### B MP, CRP #### [facility] [address] [place] [address] Dr. Juan Carlos Francis SED RATE [facility] 2021 SED RATE 3 mm/hr Normal <=15 [facility] Comment on above: Performed By: #### S EDR #### [facility] [address] [place] [address] Dr. Juan Carlos Francis CBC AUTO DIFFon 09-27-2021 BASO # 0.0 103/ul Normal 0.0-0.1 [facility] Comment on above: Performed By: #### C BC #### [facility] [address] [place] [address] Dr. Juan Carlos Francis Basophils/100 WBC (Bld) 0.2 % Normal 0.2-2.0 [facility] Comment on above: Performed By: #### C BC #### [facility] [address] [place] [address] Dr. Juan Carlos Francis EO # 0.1 103/ul Normal 0.0-0.7 [facility] Comment on above: Performed By: #### C BC #### [facility] [address] [place] [address] Dr. Juan Carlos Francis Eosinophils/100 WBC (Bld) 0.5 % Critically low 0.9-7.0 [facility] Comment on above: Performed By: #### C BC #### [facility] [address] [place] [address] Dr. Juan Carlos Francis Erythrocyte distribution width (RBC) [Ratio] 12.4 % Normal 11.0-15.0 [facility] Comment on above: Performed By: #### C BC #### [facility] [address] [place] [address] Dr. Juan Carlos Francis Hematocrit (Bld) [Volume fraction] 38.2 % Critically low 42.0-54.0 [facility] Comment on above: Performed By: #### C BC #### [facility] [address] [place] [address] Dr. Juan Carlos Francis Hemoglobin (Bld) [Mass/Vol] 13.3 g/dL Critically low 14.0-18.0 [facility] Comment on above: Performed By: #### C BC #### [facility] [address] [place] [address] Dr. Juan Carlos Francis IG # 0.11 10e3/ul Critically high 0.00-0.03 [facility] Comment on above: Performed By: #### C BC #### [facility] [address] [place] [address] Dr. Juan Carlos Francis IG % 1.0 % Critically high 0.0-0.5 [facility] Comment on above: Performed By: #### C BC #### [facility] [address] [place] [address] Dr. Juan Carlos Francis LYMPH # 1.1 103/ul Critically low 1.2-3.8 [facility] Comment on above: Performed By: #### C BC #### [facility] [address] [place] [address] Dr. Juan Carlos Francis Lymphocytes/100 WBC (Bld) 9.2 % Critically low 20.5-60.0 [facility] Comment on above: Performed By: #### C BC #### [facility] [address] [place] [address] Dr. Juan Carlos Francis MANUAL DIFF REQ NO Normal [facility] Comment on above: Performed By: #### C BC #### [facility] [address] [place] [address] Dr. Juan Carlos Francis MCH (RBC) [Entitic mass] 30.6 pg Normal 25.9-34.0 [facility] Comment on above: Performed By: #### C BC #### [facility] [address] [place] [address] Dr. Juan Carlos Francis MCHC (RBC) [Mass/Vol] 34.8 g/dL Normal 29.9-35.2 [facility] Comment on above: Performed By: #### C BC #### [facility] [address] [place] [address] Dr. Juan Carlos Francis MCV (RBC) [Entitic vol] 88.0 fL Normal 80.0-94.0 [facility] Comment on above: Performed By: #### C BC #### [facility] [address] [place] [address] Dr. Juan Carlos Francis MONO # 1.2 103/ul Critically high 0.3-0.8 [facility] Comment on above: Performed By: #### C BC #### [facility] [address] [place] [address] Dr. Juan Carlos Francis Monocytes/100 WBC (Bld) 10.2 % Normal 1.7-12.0 [facility] Comment on above: Performed By: #### C BC #### [facility] [address] [place] [address] Dr. Juan Carlos Francis NEUT # 9.1 103/ul Critically high 1.4-6.5 [facility] Comment on above: Performed By: #### C BC #### [facility] [address] [place] [address] Dr. Juan Carlos Francis Neutrophils/100 WBC (Bld) 78.9 % Critically high 43.0-75.0 [facility] Comment on above: Performed By: #### C BC #### [facility] [address] [place] [address] Dr. Juan Carlos Francis Platelet mean volume (Bld) [Entitic vol] 8.9 fL Critically low 9.5-13.5 [facility] Comment on above: Performed By: #### C BC #### [facility] [address] [place] [address] Dr. Juan Carlos Francis PLT 254 103/ul Normal 150-450 [facility] Comment on above: Performed By: #### C BC #### [facility] [address] [place] [address] Dr. Juan Carlos Francis RBC 4.34 106/ul Critically low 4.70-6.10 [facility] Comment on above: Performed By: #### C BC #### [facility] [address] [place] [address] Dr. Juan Carlos Francis WBC 11.6 103/ul Critically high 4.0-11.0 [facility] Comment on above: Performed By: #### C BC #### [facility] [address] [place] [address] Dr. Juan Carlos Francis PROF CHEM 8 (BAS METB)on Anion gap [Moles/Vol] 12.3 mmol/L Normal [facility] Comment on above: Performed By: #### B MP #### [facility] [address] [address] [address] Juan Carlos Francis Calcium [Mass/Vol] 8.7 mg/dL Normal 8.5-10.1 [facility] Comment on above: Performed By: #### B MP #### [facility] [address] [address] [address] Juan Carlos Francis Chloride [Moles/Vol] 95 mmol/L Critically low 98-107 [facility] Comment on above: Performed By: #### B MP #### [facility] [address] [address] [address] Juan Carlos Francis CO2 [Moles/Vol] 29.1 mmol/L Normal 21.0-32.0 [facility] Comment on above: Performed By: #### B MP #### [facility] [address] [address] [address] Juan Carlos Francis Creatinine [Mass/Vol] 1.57 mg/dL Critically high 0.70-1.30 [facility] Comment on above: Performed By: #### B MP #### [facility] [address] [place] [address] Dr. Juan Carlos Francis EGFR-AF CHINESE 58 mL/min/1.73m2 Critically low >=60 [facility] Comment on above: Performed By: #### B MP #### [facility] [address] [address] [address] Juan Carlos Francis EGFR-NON AF CHINESE 48 mL/min/1.73m2 Critically low >=60 [facility] Comment on above: Performed By: #### B MP #### [facility] [address] [address] [address] Juan Carlos Francis Glucose [Mass/Vol] 125 mg/dL Critically high 74-106 [facility] Comment on above: Performed By: #### B MP #### [facility] [address] [address] [address] Juan Carlos Francis Potassium [Moles/Vol] 3.4 mmol/L Critically low 3.5-5.1 [facility] Comment on above: Performed By: #### B MP #### [facility] [address] [address] [address] Juan Carlos Francis Sodium [Moles/Vol] 133 mmol/L Critically low 136-145 Th e [facility] Comment on above: Performed By: #### B MP #### [facility] [id number] Juan Carlos Francis Urea nitrogen [Mass/Vol] 27.0 mg/dL Critically high 7.0-18.0 [facility] Comment on above: Performed By: #### B MP #### [facility] [address] [address] [address] Juan Carlos Francis Urea nitrogen/Creatinine [Mass ratio] 17.2 mg/mg Normal [facility] Comment on above: Performed By: #### B MP #### [facility] [address] [address] [address] Juan Carlos Francis POINT OF CARE GLUCOSEon 07-0 Glucose [Mass/Vol] 115 mg/dL Critically high 74-[address] [facility] Comment on above: Performed By: #### P OCGLUC ####[facility] [address] [id number]. Juan Carlos Francis Covid-19 PCR (CVDTB)on 08-24 SARS-CoV-2 (COVID-19) RNA JOSE M+probe Ql (Unsp spec) Not detected Normal NOT DETECTED [facility] Comment on above: Result Comment: This test is not yet approved or cleared by the [place] FDA. When there are no FDA-approved or cleared tests available, and other criteria are met, FDA can make tests available under an emergency access mechanism called an Emergency Use Authorization (EUA). The EUA for this test is supported by the [place] of Health and Human Service's (HHS's) declaration that circumstances exist to justify the emergency use of in vitro diagnostics for the detection and/or diagnosis of the virus that causes COVID-19. This EUA will remain in effect (meaning this test can be used) for the duration of the COVID-19 declaration justifying emergency of IVDs, unless it is terminated or revoked by FDA (after which the test may no longer be used). When diagnostic testing is negative, the possibility of a false negative should be considered in the context of a patient's recent exposures and the presence of clinical signs and symptoms consistent with SARS-CoV-2. Performed By: #### C VDTB #### [facility] [address] [address] [address] Juan Carlos Francis PROF CHEM 8 (BAS METB)on Anion gap [Moles/Vol] 13.1 mmol/L Normal [facility] Comment on above: Performed By: #### B MP ####[facility] [address] [address]DrFortino Francis Calcium [Mass/Vol] 9.4 mg/dL Normal 8.5-10.1 [facility] Comment on above: Performed By: #### B MP ####[facility] [address] [address]DrFortino Francis Chloride [Moles/Vol] 99 mmol/L Normal 98-107 [facility] Comment on above: Performed By: #### B MP ####[facility] [address] [address]Dr. Juan Carlos Francis CO2 [Moles/Vol] 30.5 mmol/L Normal 21.0-32.0 [facility] Comment on above: Performed By: #### B MP ####[facility] [address] [address]DrFortino Francis Creatinine [Mass/Vol] 1.12 mg/dL Normal 0.70-1.30 [facility] Comment on above: Performed By: #### B MP ####[facility] [address] [address]DrFortino Francis EGFR-AF CHINESE >60 Normal >=60 [facility] Comment on above: Performed By: #### B MP ####[facility] [address] [address]DrFortino Francis EGFR-NON AF CHINESE >60 Normal >=60 [facility] Comment on above: Performed By: #### B MP ####[facility] [address] [place] [id number]. Juan Carlos Francis Glucose [Mass/Vol] 124 mg/dL Critically high 74-[address] [facility] Comment on above: Performed By: #### B MP ####[facility] [address] [place], [place] [address]Rz. Juan Carlos Francis Potassium [Moles/Vol] 3.6 mmol/L Normal 3.5-5.1 [facility] Comment on above: Performed By: #### B MP ####[facility] [address] [place] [id number]. Juan Carlos Francis Sodium [Moles/Vol] 139 mmol/L Normal 136-145 [facility] Comment on above: Performed By: #### B MP ####[facility] [address] [place] [id number]. Juan Carlos Francis Urea nitrogen [Mass/Vol] 7.0 mg/dL Normal 7.0-18.0 [facility] Comment on above: Performed By: #### B MP ####[facility] [address] [place] [id number]. Juan Carlos Francis Urea nitrogen/Creatinine [Mass ratio] 6.2 mg/mg Normal [facility] Comment on above: Performed By: #### B MP ####[facility] [address] [place] [id number]. Juan Carlos Francis CT ANKLE RT WO CONon 022 CT ANKLE RT WO CON EXAMINATION: CT ANKLE RT WO CON HISTORY: Foot pain COMPARISON: X-rays of same day. TECHNIQUE: Axial CT imaging is performed through the ankle and hindfoot sagittal and coronal reformatted/reconstr ucted sequences are obtained Dose reduction techniques were achieved by using automated exposure control and/or adjustment of mA and/or kV according to patient size and/or use of iterative reconstruction technique. FINDINGS: Comminuted displaced and depressed intra-articular fracture of the calcaneus. Large anterior and posterior subtalar joint effusions. Diffuse soft tissue edema. The remainder of the osseous structures are unremarkable. IMPRESSION: Comminuted displaced and depressed intra-articular fracture of the calcaneus. Surgical intervention is necessary. Electronically authenticated by: MANUELITO MONTOYA Date: 2021-09-05 21:41 Normal [facility] XR ankle RT min 3V*on 2021 XR ankle RT min 3V* [facility] [place] [address] [place] [id number] XRay Report Signed Patient: Raza Dooley MR#: [id number] 13 : 1975 Acct:[id number] Age/Sex: 46 / M ADM Date: 09/05/21 Loc: [facility] Room: Type: [facility] Attending Dr: Anuel Albert DPM, MS Copies to: Anuel Albert DPM, Ordering Provider: Anuel Albert DPM, MS Date of Service: 09/05/21 XR/XR ankle RT min 3V*: M25.571 ([id number]) XR/XR foot RT min 3V*: M25.751 XR foot RT min 3V*, XR ankle RT min 3V* 09/05/2021 9:23 AM SIGNS AND SYMPTOMS: Right foot and ankle pain for 2 weeks PROTOCOL: Frontal, lateral, and oblique radiographs of the right ankle. Frontal and oblique radiographs of the right foot. COMPARISON: None FINDINGS: Right ankle: On lateral view there is a fracture of the calcaneus extending to the mid body with loss of the normal Boehler's angle. There is diffuse soft tissue swelling extending along the ankle and into the foot. The ankle mortise is preserved. The medial and lateral malleolus are intact. Right foot: The calcaneal fracture is better demonstrated on ankle radiographs. The remainder of the foot is grossly intact with preservation the joint spaces. There is mild diffuse soft tissue swelling. XR/XR foot RT min 3V* IMPRESSION: Right ankle: On lateral view there is a fracture of the calcaneus extending to the mid body with loss of the normal Boehler's angle. There is diffuse soft tissue swelling extending along the ankle and into the foot. Right foot: No additional fractures. Impression dictated by: Reji Machado M.D.09/05/2021 2:01 PM Dictation Location: [address] [address] Transcribed By: [facility] 09/05/21 1401 Dictated By: Reji Machado II, MD 09/05/21 1357 Signed By: 09/05/21 1401 [facility] XR Ankle Complete Righton XR Ankle Complete Right CLINICAL HISTORY: Trauma with pain. COMPARISON: None. TECHNIQUE: 3 Views were obtained. FINDINGS: There is a comminuted fracture of the calcaneus the portions of the tibia and fibula are visualized appear intact. Ankle mortise is maintained. There is soft tissue swelling adjacent to the calcaneus, especially inferiorly. There is soft tissue swelling at the lateral ankle. There is a joint space effusion at the ankle. The cuboid bone is not well visualized, consider CT scan. IMPRESSION: COMMINUTED FRACTURE OF THE CALCANEUS WITH ADJACENT SOFT TISSUE SWELLING. Report reported and signed by Nela Nunez on 08/28/2021 0815 [facility] Operating Room Manager Encounters Encounter Date Encounter Type Care Provider Facility Start: 08-27-2022 ambulatory ANUEL Raman [facility] Fac lity:H1 Start: 08-13-2022 ambulatory ANUEL Raman [facility] Fac lity:H1 Start: 07-09-2022 End: 07-10-2022 ambulatory ANUEL Raman [facility] Facility:H1 Start: 06-20-2022 End: 06-21-2022 ambulatory ANUEL Raman [facility] Facility:H1 Start: 03-12-2022 End: 03-13-[address] DOCTOR SADLER Facility:H1 Start: 02-16-2022 End: 02-17-2022 ambulatory [facility] Start: 02-12-2022 End: 02-13-2022 ambulatory [facility] Start: 02-05-2022 End: 02-06-2022 ambulatory [facility] Start: 02-05-2022 End: 02-05-2022 Subsequent hospital visit by physician [facility] Comment on above: Arrived Start: 02-02-2022 End: 02-03-2022 [facility] Start: 02-02-2022 End: 02-02-2022 Subsequent hospital visit by physician Peter Valentine [facility] Physical Therapy Comment on above: Arrived Start: 01-31-2022 End: 02-01-2022 [facility] Start: 01-31-2022 End: 01-31-2022 Subsequent hospital visit by physician Peter Valentine [facility] Physical Therapy Comment on above: Arrived Start: 01-29-2022 End: 01-29-2022 Subsequent hospital visit by physician Keerthi Monsalve [facility] Start: 01-26-2022 End: 01-26-2022 Subsequent hospital visit by physician Dena Berkowitz [facility] Physical Therapy Start: 01-26-[address] [facility] Start: 01-25-2022 End: 01-25-2022 Subsequent hospital visit by physician Peter Valentine [facility] Physical Therapy Start: 01-24-2022 End: 01-25-2022 [facility] Start: 01-22-2022 End: 01-23-2022 [facility] Start: 01-22-2022 End: 01-22-2022 Subsequent hospital visit by physician Dena Berkowitz [facility] Physical Therapy Comment on above: Arrived Start: 01-19-2022 End: 01-20-2022 [facility] Start: 12-29-2021 End: 12-30-2021 ambulatory ANUEL ALBERT Facility:H1 Start: 12-08-2021 End: 12-09-2021 ambulatory ANUEL ALBERT Facility:H1 Start: 11-24-2021 End: 11-25-2021 ambulatory ANUEL ALBERT Facility:H1 Start: 11-20-2021 End: 11-21-[address] DOCTOR SADLER Facility:H1 Start: 10-17-2021 End: 10-18-2021 ambulatory [facility] Facility:H1 Start: 09-27-2021 [facility] Start: 09-27-[facility]21 Encounter for preprocedural laboratory examination ANUEL Raman [facility] Start: 09-26-2021 End: 09-27-2021 ambulatory ANUEL ALBERT Facility:H1 Start: 09-19-2021 End: 09-20-2021 ambulatory ANUEL Raman [facility] Facility:H1 Start: 09-19-2021 End: 09-20-2021 Encounter for preprocedural cardiovascular examination ANUEL Raman [facility] Facility:H1 Start: 09-05-2021 End: 09-06-2021 ambulatory [facility] Facility:H1 Start: 09-05-2021 End: 09-05-2021 Patient encounter procedure PHYSICIAN NO FAMILY [facility] Procedures Date Procedure Procedure Detail Performing Clinician Start: 09-05-2021 X-ray of right ankle PH YSICIAN NO FAMILY Start: 09-05-2021 X-ray of right foot PHY SICIAN NO FAMILY Plan of Treatment Date Care Activity Detail Author Start: 12-26-2022 Influenza vaccination Flu vaccine (# 1) [facility] Comment on above: Postponed from 10/23 (Patient Refused) Start: 12-24-2022 End: 12-24-2022 Patient encounter procedure 12/24/2022 Office Visit Family Medicine Rodrigue Haprer MD [address] [place] [address] [facility] Start: 07-03-2022 Depression Screen Depression Screen [facility] Start: 02-21-2022 End: 02-21-2022 Patient encounter procedure 02/21/2022 Appointment Physical Therapy Keerthi Monsalve PT [facility] Start: 02-19-2022 End: 02-19-2022 Patient encounter procedure 02/19/2022 Appointment Physical Therapy Peter Valentine [facility] Start: 02-16-2022 End: 02-16-2022 Patient encounter procedure 02/16/2022 Appointment Physical Therapy Keerthi Monsalve PT [facility] Start: 02-14-2022 End: 02-14-2022 Patient encounter procedure 02/14/2022 Appointment Physical Therapy Keerthi Monsalve, PT [facility] Start: 02-12-2022 End: 02-12-2022 Patient encounter procedure 02/12/2022 Appointment Physical Therapy Peter Valentine [facility] Start: 02-07-2022 End: 02-07-2022 Patient encounter procedure 02/07/2022 Appointment Physical Therapy Peter Valentine [facility] Start: 02-05-2022 End: 02-05-2022 Patient encounter procedure 02/05/2022 Appointment Physical Therapy Peter Valentine [facility] Start: 02-02-2022 End: 02-02-2022 Patient encounter procedure 02/02/2022 Appointment Physical Therapy Peter Valentine [facility] Start: 01-31-2022 End: 01-31-2022 Patient encounter procedure 01/31/2022 Appointment Physical Therapy Peter Valentine [facility] Start: 01-29-2022 End: 01-29-2022 Patient encounter procedure 01/29/2022 Appointment Physical Therapy Keerthi Monsalve PT [facility] Start: 01-26-2022 Subsequent hospital visit by physician 01/26/2022 Hospital Encounter Physical Therapy Dena Berkowitz [facility] Start: 01-25-2022 End: 01-25-2022 Patient encounter procedure 01/25/2022 Appointment Physical Therapy Peter Valentine [facility] Start: 06-03-2019 Screening for malign ant neoplasm of colon [facility] Start: 2014 Lipid panel [facility] Start: 2009 Diabetes screen Diabetes screen [facility] Start: 1993 DTaP/Tdap/Td vaccine (1 - Tdap) DTaP/Tdap/Td vaccine (1 - Tdap) [facility] Start: 1992 Hepatitis C screening Hepatitis C sc reen [facility] Start: 1989 HIV screening HIV screen [facility] Start: 1975 COVID-19 Vaccine (#1) COVID-19 Vacci ne (#1) [facility] Payers Date Payer Category Payer Unknown [id number] 2021 Unknown 2021 [id number] 1975 Unknown [id number] 2.16.840.1.560347.3.579.2.174 1974 Unknown [id number] 2.16.840.1.905024.3.579.2.174 1974 Unknown [id number] 2.16.840.1.928333.3.579.2.174 1974 Unknown [id number] 2.16.840.1.460811.3.579.2.174 1974 Unknown [id number] 2.16.840.1.258515.3.579.2.174 1974 Unknown [id number] 2.16.840.1.935085.3.579.2.174 1974 Unknown [id number] 2.16.840.1.377625.3.579.2.174 1974 Unknown [id number] 2.16.840.1.813234.3.579.2.174 1974 Unknown [id number] 2.16.840.1.658461.3.579.2.593 1974 Unknown [id number] 2.16.840.1.170875.3.579.2.593 1974 Unknown [id number] 2.16.840.1.555066.3.579.2.593 1974 Unknown [id number] 2.16.840.1.858808.3.579.2.593 1974 Unknown [id number] 2.16.840.1.183702.3.579.2.593 1974 Unknown [id number] 2.16.840.1.578628.3.579.2.593 1974 Unknown [id number] 2.16.840.1.602806.3.579.2.593 1974 Unknown [id number] 2.16.840.1.403149.3.579.2.593 1974 Unknown [id number] 2.16.840.1.436906.3.579.2.593 1974 Unknown [id number] 2.16.840.1.997460.3.579.2.593 1974 Unknown [id number] 2.16.840.1.904335.3.579.2.593 1974 Unknown [id number] 2.16.840.1.021632.3.579.2.593 1974 Unknown [id number] 2.16.840.1.415959.3.579.2.593 1974 Unknown [id number] 2.16.840.1.911594.3.579.2.593 1974 Unknown [id number] 2.16.840.1.488635.3.579.2.593 1959 Worker's Compensation [id number] Worker's Compensation Self-pay Self Pay [id number] Worker's Compensation Care Works [facility] [id number] Social History Date Type Detail Facility Start: 03-25-1989 End: 03-25-2018 Tobacco smoking status PAIS Smoker (finding) [facility] Start: 1975 Sex Assigned At Male [facility] Start: 12-26-2021 Tobacco smoking stat us PAIS Ex-smoker [facility] Start: 03-25-1989 End: 03-25-2018 History of tobacco use Cigarette Smoker [facility] Phone: Start: 12-26-2021 Cigarettes smoked current (pack per day) - Reported 0.5 [facility] Phone: Start: 12-26-2021 Tobacco use and exposure User of smokeless tobacco [facility] Phone: History of tobacco use Chews Tobacco [facility] Phone: Start: 12-26-2021 Alcohol intake Current non-dr central office frame wirer of alcohol (finding) [facility] Phone: Start: 07-03-2021 History SDOH Financial 5 [facility] Phone: Start: 07-03-2021 History SDOH Food Worry 1 [facility] Phone: Start: 05-16-2020 History SDOH Transpo rt Med 2 [facility] Phone: Start: 05-16-2020 Education 13 [employer] Phone: Start: 1975 Sex Assigned At Not on file B ON [employer] Phone: Clinical Notes 09-27-2021 to 06-21-2022 Peter Valentine - 02/05/2022 7:30 AM ESTPeter Valentine - 02/02/2022 7:30 AM Niki Valentine - 01/31/2022 7:30 AM ESTAngela Gianluca Cox - 01/29/2022 8:00 AM EST Note Date & Type Note Facility 06-21-2022 Note PROCEDURE: XR FOOT R T MIN 3 VIEWS COMPARISON: 03/12/2022 HISTORY: Pain in right foot FINDINGS: BONES:Subtalar fusion with 3 cannulated screws. No acute fracture, dislocation or mechanical failure. Some lucency surrounds the inferior screw, stable. Mild degenerative changes with joint space narrowing and marginal osteophyte formation. SOFT TISSUES:Mild diffuse soft tissue swelling EFFUSION:None visible. OTHER: Negative. IMPRESSION: Stable subtalar fusion Soft tissue swelling Electronically authenticated by: MANUELITO LARA Date: 2022-06-21 08:09 [facility] 03-12-2022 Note PROCEDURE: XR FOOT R T MIN 3 VIEWS HISTORY: Pain in right foot COMPARISON: XR foot right 02-13 FINDINGS: BONES:Surgical repair of prior calcaneal fracture along with fusion of the talocalcaneal joint via 3 lag screws. The tip of one of the screws protrudes slightly posterior lateral to the calcaneus. SOFT TISSUES:No visible soft tissue swelling. EFFUSION:None visible. OTHER: Negative. IMPRESSION: 1. Stable surgical changes without evidence of hardware failure or change in alignment. 2. Suspect ongoing bone healing. Electronically authenticated by: NIRMAL LYONS Date: 2022-03-12 21:58 [facility] 02-05-2022 History of Present illness Narrative Images from the original note were not included. [facility] Outpatient Physical Therapy Daily Note Date: 02/05/2022 Patient Name: Raza Dooley ACCT#: : 1975 (46 y.o.) Referring Provider (secondary): Dr. Anuel Albert Diagnosis: R ankle pain, fractures R calcaneus Treatment Diagnosis: Right ankle pain Onset Date: 08/26/21 PT Insurance Information: [facility] Total # of Visits Approved: 18 Per Physician Order Total # of Visits to Date: 6 Canceled Appointment: 1 Pre-Treatment Pain: 04/03 Assessment Assessment: Pt rates pain 04/03. Pt notes when no railing he amb down steps non reciprical. Ascends reciprically. Progressed with 4 step down to improve miguel angel to descending stairs. Performed ex/manual as outlined. Will progress. Plan Continue with current plan of care Exercises/Modalities/Manual: See DocFlow Sheet Goals (Total # of Visits to Date: 6) Short Term Goals Time Frame for Short Term Goals: 9 Short Term Goal 1: Patient to be independent with HEP-met Short Term Goal 2: Increase PROM R ankle DF 10 degrees to walk down stairs alternating feet WFL-met Short Term Goal 3: Increase strength R ankle PF 4+/5 to walk with heel to toe gait pattern-met Furniture Maker Goals Time Frame for Furniture Maker Goals : 18 Furniture Maker Goal 1: Improve functional activities with LEFS score >65/80 Prison Goal 2: Patient to hold SLS R Le x10 sec forgood dynamic stability Post Treatment Pain: 04/03 Time In: 0730 Time Out : 0812 Timed Code Treatment Minutes: 42 Minutes Total Treatment Time: 42 Minutes Peter Valentine ASSOCIATION EXECUTIVE Date: 02/05/2022 documented in this encounter [facility] [employer] Phone: 02-02-2022 History of Present illness Narrative Images from the original note were not included. [facility] Outpatient Physical Therapy Daily Note Date: 02/02/2022 Patient Name: Raza Dooley : 1975 (46 y.o.) Referring Provider (secondary): Dr. Anuel Albert Diagnosis: R ankle pain, fractures R calcaneus Treatment Diagnosis: Right ankle pain Onset Date: 08/26/21 PT Insurance Information: [employer] Total # of Visits Approved: 18 Per Physician Order Total # of Visits to Date: 5 Canceled Appointment: 1 Pre-Treatment Pain: 05/04 Assessment Assessment: Pt reports riding 4 murphy yesterday with increased swelling , soreness today 05/04. Increased resistance on shuttle single leg press. Performed ex as outlined followed by manual therapy , reddness persists lateral ankle and foot which pt states is d/t he keeps scrubbing it. Advised him to not scrub this area. Plan Continue with current plan of care Exercises/Modalities/Manual: See DocFlow Sheet Goals (Total # of Visits to Date: 5) Short Term Goals Time Frame for Short Term Goals: 9 Short Term Goal 1: Patient to be independent with HEP-met Short Term Goal 2: Increase PROM R ankle DF 10 degrees to walk down stairs alternating feet WFL-met Short Term Goal 3: Increase strength R ankle PF 4+/5 to walk with heel to toe gait pattern-met Furniture Maker Goals Time Frame for Furniture Maker Goals : 18 Furniture Maker Goal 1: Improve functional activities with LEFS score >65/80 Furniture Maker Goal 2: Patient to hold SLS R Le x10 sec forgood dynamic stability Post Treatment Pain: 05/04 Time In: 0730 Time Out : 0805 Timed and total 35 min Peter Valentine ASSOCIATION EXECUTIVE Date: 02/02/2022 documented in this encounter [facility] Phone: 01-31-2022 History of Present illness Narrative Images from the original note were not included. [facility] Outpatient Physical Therapy Daily Note Date: 01/31/2022 Patient Name: Raza Dooley ACCT#: : 1975 (46 y.o.) Referring Provider (secondary): Dr. Anuel Albert Diagnosis: R ankle pain, fractures R calcaneus Treatment Diagnosis: Right ankle pain Onset Date: 08/26/21 PT Insurance Information: [facility] [facility] Total # of Visits Approved: 18 Per Physician Order Total # of Visits to Date: 4 Canceled Appointment: 1 Pre-Treatment Pain: 0/10 Assessment Assessment: Pt reports he was sick with the flu last week. Pt denies pain.Is compliant with HEP. PROM to 10 deg DF. Strength with MMT PF and DF 5/5. Plan to progress ex. Plan Continue with current plan of care Exercises/Modalities/Manual: See DocFlow Sheet Goals (Total # of Visits to Date: 4) Short Term Goals Time Frame for Short Term Goals: 9 Short Term Goal 1: Patient to be independent with HEP-met Short Term Goal 2: Increase PROM R ankle DF 10 degrees to walk down stairs alternating feet WFL-met Short Term Goal 3: Increase strength R ankle PF 4+/5 to walk with heel to toe gait pattern-met Prison Goals Time Frame for Furniture Maker Goals : 18 Furniture Maker Goal 1: Improve functional activities with LEFS score >65/80 Furniture Maker Goal 2: Patient to hold SLS R Le x10 sec forgood dynamic stability Post Treatment Pain: 0/10 Time In: 0730 Time Out : 0805 Timed and total 35 min Peter Valentine ASSOCIATION EXECUTIVE Date: 01/31/2022 documented in this encounter [facility] Phone: 01-29-2022 History of Present illness Narrative [facility] Date: 01/29/2022 Patient Name: Raza Dooley : 1975 Pt Cancelled Appt due to no reason for cancel. Peter Cox Date: 01/29/2022 [facility] 01-26-[facility]22 History of Present illness Narrative Physical Therapy [facility] Date: 01/26/2022 Patient Name: Raza Dooley : 1975 Patient is not feeling well. Will return on the next appointment. Idania Seo Shock Date: 01/26/2022 [facility]: 01-25-2022 History of Present illness Narrative Images from the original note were not included. [facility] Outpatient Physical Therapy Daily Note Date: 01/25/2022 Patient Name: Raza Dooley ACCT#: : 1975 (46 y.o.) Referring Provider (secondary): Dr. Anuel Albert Diagnosis: R ankle pain, fractures R calcaneus Treatment Diagnosis: Right ankle pain Onset Date: 08/26/21 PT Insurance Information: [facility] Total # of Visits Approved: 18 Per Physician Order Total # of Visits to Date: 3 Pre-Treatment Pain: 04/03 Assessment Assessment: Pt reports primary c/o stiffness, pain 04/03. Performed ex as outlined with progression of heel raise on shuttle . Manual therapy for tissue release, PROM to 6 deg DF. Good miguel angel. Plan Continue with current plan of care Exercises/Modalities/Manual: See DocFlow Sheet Goals (Total # of Visits to Date: 3) Short Term Goals Time Frame for Short Term Goals: 9 Short Term Goal 1: Patient to be independent with HEP-met Short Term Goal 2: Increase PROM R ankle DF 10 degrees to walk down stairs alternating feet WFL Short Term Goal 3: Increase strength R ankle PF 4+/5 to walk with heel to toe gait pattern Furniture Maker Goals Time Frame for Prison Goals : 18 Prison Goal 1: Improve functional activities with LEFS score >65/80 Prison Goal 2: Patient to hold SLS R Le x10 sec forgood dynamic stability Post Treatment Pain: 04/03 Time In: 0730 Time Out : 0812 Timed Code Treatment Minutes: 42 Minutes Total Treatment Time: 42 Minutes Peter Valentine ASSOCIATION EXECUTIVE Date: 01/25/2022 documented in this encounter [facility] [employer] Phone: 01-24-2022 Note PROCEDURE: XR FOOT R T MIN 3 VIEWS COMPARISON: 12/08/2021 HISTORY: Pain in right foot FINDINGS: BONES:Stable complex calcaneal fracture with internal fixation including subtalar fusion with 3 screws. Stable degenerative changes of the midfoot with joint space narrowing and marginal osteophyte formation SOFT TISSUES:Negative. No visible soft tissue swelling. EFFUSION:None visible. OTHER: Negative. IMPRESSION: Stable complex calcaneal fracture with subtalar fusion Electronically authenticated by: MANUELITO LARA Date: 2022-01-24 19:12 [facility] 01-22-2022 History of Present illness Narrative Images from the original note were not included. Physical Therapy [facility] Outpatient Physical Therapy Daily Note Date: 01/22/2022 Patient Name: Raza Dooley : 1975 (46 y.o.) Referring Provider (secondary): Dr. Anuel Albert Diagnosis: R ankle pain, fractures R calcaneus Treatment Diagnosis: Right ankle pain Onset Date: 08/26/21 PT Insurance Information: [facility] Total # of Visits Approved: 18 Per Physician Order Total # of Visits to Date: 2 Pre-Treatment Pain: 05/04 Assessment Assessment: Patient rates pain today as 2/10. Reports soreness following inital eval through the weekend. Progressed with exercises and manual as outlined above. Reports not being able to complete HEP due to forgetting tband at previous visit. Issued blue tband to complete HEP. No pain following session. Plan Continue with current plan of care Exercises/Modalities/Manual: See DocFlow Sheet Education: Goals (Total # of Visits to Date: 2) Short Term Goals Time Frame for Short Term Goals: 9 Short Term Goal 1: Patient to be independent with HEP Short Term Goal 2: Increase PROM R ankle DF 10 degrees to walk down stairs alternating feet WFL Short Term Goal 3: Increase strength R ankle PF 4+/5 to walk with heel to toe gait pattern Furniture Maker Goals Time Frame for Furniture Maker Goals : 18 Prison Goal 1: Improve functional activities with LEFS score >65/80 Furniture Maker Goal 2: Patient to hold SLS R Le x10 sec forgood dynamic stability Post Treatment Pain: 0/10 Time In: 1023 Time Out : 1102 Timed Code Treatment Minutes: 39 Minutes Total Treatment Time:39 Minutes Dena Berkowitz PTA Date: 01/22/2022 documented in this encounter [facility] Phone: 12-08-2021 Note PROCEDURE: XR FOOT R T MIN 3 VIEWS COMPARISON: 11/20/2021 HISTORY: Pain in right foot FINDINGS: BONES:Stable complex calcaneal fracture with subtalar fusion. Continued interval development of sclerosis and bony bridging consistent with healing SOFT TISSUES:Negative. No visible soft tissue swelling. EFFUSION:None visible. OTHER: Negative. IMPRESSION: Stable healing complex calcaneal fracture with internal subtalar fusion/fixation Electronically authenticated by: MANUELITO LARA Date: 2021-12-08 16:34 [facility] 11-20-2021 Note PROCEDURE: XR FOOT R T MIN 3 VIEWS COMPARISON: 10/17/2021 HISTORY: Pain in right foot FINDINGS: BONES:Continued healing of a complex calcaneal fracture. Subtalar fusion with 3 cannulated screws. Moderate degenerative changes of the midfoot with joint space narrowing and marginal osteophyte formation. SOFT TISSUES:Negative. No visible soft tissue swelling. EFFUSION:None visible. OTHER: Negative. IMPRESSION: Continued healing of the complex calcaneal fracture with subtalar fusion Electronically authenticated by: MANUELITO LARA Date: 2021-11-20 11:36 [facility] 10-18-2021 Note PROCEDURE: XR FOOT R T MIN 3 VIEWS HISTORY: Pain in right foot COMPARISON: XR foot right 09/26/2021 FINDINGS: BONES:Mechanical fusion of the talocalcaneal joint and repair of prior calcaneal fracture with stable appearance of the 3 screws. SOFT TISSUES:No visible soft tissue swelling. Cast material has been removed. EFFUSION:None visible. OTHER: Negative. IMPRESSION: 1. Stable surgical changes without evidence of hardware failure or change in alignment. 2. Ongoing healing of calcaneal fracture. Electronically authenticated by: NIRMAL LYONS Date: 2021-10-18 07:52 [facility] 09-27-2021 Note PROCEDURE: XR FOOT R T MIN 3 VIEWS HISTORY: Postoperative care COMPARISON: XR foot right 09/26/2021 intraoperative images FINDINGS: BONES:Postoperative fusion of the calcaneal fracture and talocalcaneal joint via 3 screws. SOFT TISSUES:Expected postsurgical findings. Images were obtained through cast material. EFFUSION:None visible. OTHER: Negative. IMPRESSION: 1. Talocalcaneal joint effusion. 2. Calcaneal fracture fusion/repair. Electronically authenticated by: NIRMAL LYONS Date: 2021-09-27 13:28 [facility] 09-27-2021 Note PROCEDURE: XR FOOT R T 2V HISTORY: Pain COMPARISON: XR ankle and foot right 09/05/2021 FINDINGS: BONES:Multiple intraoperative images demonstrates mechanical fixation of calcaneal fracture and fusion of the talocalcaneal joint via 3 screws. IMPRESSION: 1. Screw fixation of prior calcaneal fracture and fusion of the talocalcaneal joint. Electronically authenticated by: NIRMAL LYONS Date: 2021-09-27 10:56 [facility] Evaluation note No assessment inform ation available [facility] Work Phone: Summary Purpose Family History No Family History Records FoundNo Family History Records FoundNo Family History Records FoundNo Family History Records Found Advance Directives No Advanced Directives Records Found Advance Directive Response Recorded Date/ Time Advance Directives No January 15, 2017 2:07pm Chief Complaint and Reason for Visit Chief Complaint M25.571 Additional Source Comments (unrecognized sect ion and content) No Status Records FoundNo Status Records FoundNo Status Records FoundNo Status Records Found INFORMATION SOURCE (unrecogn ized section and content) DATE CREATED AUTHOR 08/28/2021 [facility] Me dical Specialist DATE CREATED AUTHOR AUTHOR'S ORGANIZ ATION 10/24/2021 [facility] DATE CREATED AUTHOR AUTHOR'S ORGANIZ ATION 02/17/2022 [facility] DATE CREATED AUTHOR AUTHOR'S ORGANIZ ATION 07/12/2022 [facility] Care Teams (unrecognized sec tion and content) Team Status: Inactive Member Role Status Dates PHYSICIAN NO FAMILY Primary Care Provider Active Anuel Albert DPM MS Attending Provider Active Team Status: Active Member Role Status Dates PHYSICIAN NO FAMILY Primary Care Provider Active Field Service Coordinator Relationship Specialty Start Date End Date Rodrigue Harper MD [address] [place] [id number] PCP - General Internal Medicine 05/16/20 Field Service Coordinator Relationship Specialty Start Date End Date Rodrigue Harper MD [address] [place] [id number] PCP - General Internal Medicine 05/16/20 Field Service Coordinator Relationship Specialty Start Date End Date Rodrigue Harper MD [address] [place] [id number] PCP - General Internal Medicine 05/16/20 Field Service Coordinator Relationship Specialty Start Date End Date Rodrigue Harper MD [address] [place], [place] [id number] PCP - General Internal Medicine 05/16/20 Field Service Coordinator Relationship Specialty Start Date End Date Rodrigue Harper MD [address] [place] [id number] PCP - General Internal Medicine 05/16/20 Field Service Coordinator Relationship Specialty Start Date End Date Rodrigue Harper MD [address] [place] [id number] PCP - General Internal Medicine 05/16/20 Goals (unrecognized section and content) Goals may be documented in a n alternate section FOR RECORDS PERTAINING TO PATIENTS WHO ARE OR HAVE BEEN ENROLLED IN A CHEMICAL DEPENDENCY/SUBSTANCEABUSE PROGRAM, SOME INFORMATION MAY BE OMITTED. This clinical summary was aggregated from multiple sources. Caution should be exercised in using it in the provision of clinical care. This summary normalizes information from multiple sources, and as a consequence, information in this document may materially change the coding, format and clinical context of patient data. In addition, data may be omitted in some cases. CLINICAL DECISIONS SHOULD BE BASED ON THE PRIMARY CLINICAL RECORDS. [employer] provides no warranty or guarantee of the accuracy or completeness of information in this document.
== END 2023-04-23 09:30 | disposition home or self-care (01) ==
LOC: RAD 09:29
PROVIDERS: Visit Provider Podiatrist Foot & Ankle Surgery
DX: M96.0 Pseudarthrosis after fusion or arthrodesis (principal)
CPT/HCPCS: 73630

== ENCOUNTER 2023-05-21 09:11 | Outpatient (OUT) | payer OTHER, SELFPAY ==
--- NOTE | 2023-05-21 | XR_ITS ---
[address] [address] Patient Name: RAZA DOOLEY MRN: [id number] date: 1975 Sex: M Assigned Patient Location: Current Patient Location: Accession/Order Number: [id number] Exam Date: 05/21/2023 09:15 Report Date: 05/21/2023 09:32 At the request of: ANUEL HARDING Procedure: XR foot RT min 3V PROCEDURE: XR foot RT min 3V COMPARISON: 04/23/2023 HISTORY: RIGHT FOOT PAIN FINDINGS: BONES:Subtalar fusion with 2 cannulated screws. No new fracture or dislocation. Incomplete bony bridging. Degenerative changes with marginal osteophyte formation and joint space narrowing SOFT TISSUES:Negative. No visible soft tissue swelling. EFFUSION:None visible. OTHER: Negative. XR/XR foot RT min 3V IMPRESSION: Stable subtalar fusion and degenerative changes Electronically authenticated by: MANUELITO LARA Date: 05/21/2023 09:32
== END 2023-05-21 09:12 | disposition home or self-care (01) ==
LOC: EC 09:11
PROVIDERS: Visit Provider Podiatrist Foot & Ankle Surgery
DX: S92.001A Unspecified fracture of right calcaneus, initial encounter for closed fracture (principal); Z98.890 Other specified postprocedural states
CPT/HCPCS: 73630

== ENCOUNTER 2023-06-03 07:54 | Outpatient (OUT) | payer OTHER, SELFPAY ==
--- OUTSIDE RECORDS SUMMARY | 2023-06-03 07:57 | XMS_ITS | CCD ---
Author Name Unknown Address [id number] [place] [address] Organization [facility] Care Team Providers Care Canal Equipment Mechanic Name Role Phone NO FAMILY, PHYSICIAN Primary Care Provider Unava JEANNA Tariq Attending Provider [phone] Rodrigue Harper MD Primary Care Provider ANUEL ALBERT Attending Unavailable MISC, DR APPIAH Primary Care Unavailable ANUEL ALBERT Admitting Unavailable ANUEL ALBERT Attending Unavailable MISC, DR APPIAH Primary Care Unavailable ANUEL ALBERT Admitting Unavailable ANUEL ALBERT Attending Unavailable ANUEL ALBERT Consulting Unavailable ANUEL ALBERT Admitting Unavailable WIGGINS, PETER Consulting Unavailable ANUEL ALBERT Admitting Unavailable MISC, [...] Consulting Unavailable ANUEL ALBERT Attending Unavailable ANUEL ABLERT Admitting Unavailable SAVAGE ., DR FATUMA Denson Consulting Unavailable Nirmal Lyons Consulting Unavailable ANUEL ALBERT Consulting Unavailable PHILLY VILLANUEVA Consulting Unavailable AYYAGARI ., NGHIA Consulting Unavailable NICOLASA COSBY Consulting Unavailable NIRMAL MARIE Consulting Unavailable MISC, DR APPIAH Primary Care Unavailable NEIL HANNA Admitting Unavailable NEIL HANNA Attending Unavailable Nirmal Lyons Consulting Unavailable NEIL HANNA Consulting Unavailable ANUEL ALBERT Admitting Unavailable WEST, DR MANUELITO Jones Consulting Unavailable MISC, DR APPIAH Primary Care Unavailable ANUEL ALBERT Attending Unavailable ANUEL ALBERT Consulting Unavailable NEIL HANNA Attending Unavailable Nirmal Lyons Consulting Unavailable NEIL HANNA Admitting Unavailable NEIL HANNA Consulting Unavailable MIS, DR APPIAH Primary Care Unavailable MISC, DR APPIAH Consulting Unavailable NEIL HANNA Attending Unavailable NEIL HANNA Admitting Unavailable NEIL HANNA Consulting Unavailable ANUEL ALBERT Attending Unavailable ANUEL ALBERT Admitting Unavailable MEHDI, ANUEL Raman Consulting Unavailable Manuelito Montoya Consulting Unavailable ANUEL ALBERT Admitting Unavailable WEST, DR MANUELITO Jones Consulting Unavailable REQUEST, DR CAMARENA LISTED Primary Care Unavaila ble ANUEL ALBERT Attending Unavailable ANUEL ALBERT Consulting Unavailable ANUEL ALBERT Admitting Unavailable MISC, DR APPIAH Primary Care Unavailable WEST, DR MANUELITO Jones Consulting Unavailable ANUEL ALBERT Attending Unavailable ANUEL ALBERT Consulting Unavailable Rodrigue Harper MD Primary Care Provider NEIL HANNA Referring Unavailable RODRIGUE HARPER Primary Care Unavailable NEIL HANNA Referring Unavailable JOSE ALEJANDRO RODRIGUE Primary Care Unavailable JOSE ALEJANDRO RODRIGUE Primary Care Unavailable NEIL HANNA Referring Unavailable Allergies Allergy Classification Reported Allergen(s) Allergy Type Date of Onset Reaction(s) Facility (9 sources) Penicillins Allergy to substance 02-05-2012 [facility] (1 source) Penicillin Drug Allergy [facility] Repository Medications Current Medications Medication Drug Class(es) [...] 2017 2:23pm ibuprofen 800 mg oral tablet (8 sources) Nonsteroidal Anti-inflammatory Drug Start: 12-08-2021 take 1 tablet by mouth every eight hours as needed for pain ibuprofen (ADVIL;MOTRIN) 800 MG tablet TAKE 1 TABLET BY MOUTH EVERY 8 HOURS NEEDED FOR PAIN 0 12/08/2021 Active losartan potassium 100 mg oral tablet (8 sources) Angiotensin 2 Receptor Carson Start: 12-24-2022 take 1 tablet by mouth once daily losartan (COZAAR) 100 MG tablet Indications: Essential hypertension Take 1 tablet by mouth daily 90 tablet 3 12/24/2022 Active Start: 12-26-2021 take 1 tablet by tejal th once daily losartan (COZAAR) 100 MG tablet Indications: Essential hypertension Take 1 tablet by mouth daily 90 tablet 1 12/26/2021 Active metoprolol tartrate 25 mg oral tablet (1 source) beta-Adrenergic Carson Start: 12-24-2022 take 0.5 tablet by mouth twice daily metoprolol tartrate (LOPRESSOR) 25 MG tablet Indications: Essential hypertension Take 0.5 tablets by mouth 2 times daily 90 tablet 1 12/24/2022 Active omeprazole 40 mg delayed release oral [...] WITHOUT ESOPHAGITIS] Onset: 10-02-2021 Chronic Essential hypertension (9 sources) Essential hypertension; Translations: [Essential (primary) hypertension] Onset: 05-16-2020 05-16-2020 Chronic Fracture of lower limb (14 sources) Unspecified fracture of right calcaneus, subsequent encounter for fracture with routine healing; Translations: [Unspecified fracture of right calcaneus, sequela] Onset: 09-05-2021 Episodic Sprains and strains (1 [...] by: MANUELITO LARA Date: 2022-07-09 18:28 Normal [facility] WOUND CULTUREon 11-25-2021 Antimicrobial Susceptibility Comment Normal [facility] Comment on above: Result Comment: S = [...] Trimethoprim/Sulfa S Performed By: #### C XWND ####[facility] [address] [place], [place] [address]Dr. Juan Carlos Francis Bacteria identified Aer cx Nom (Unsp spec) Final report Abnormal [facility] Comment on above: Performed By: #### C XWND ####[facility] [address] [place], [place] [address]Dr. Juan Carlos Francis Result 1 Proteus hauseri Abnormal [facility] Comment on above: Result Comment: Mult i-Drug Resistant Organism Susceptibility profile is consistent with a probable ESBL. Heavy growth Performed By: #### C XWND ####[facility] [address] [place], [place] [address]Dr. Juan Carlos Francis Result 2 Comment Abnormal [facility] Comment on above: Result Comment: Pseu domonas aeruginosa Heavy growth Performed By: #### C XWND ####[facility] [address] [place], [place] [address]Dr. Juan Carlos Francis CBC AUTO DIFFon 11-20-2021 BASO # 0.1 103/ul Normal 0.0-0.1 [facility] Comment on above: Performed By: #### C BC ####[facility] [address] [place], [place] [address]Dr. Juan Carlos Francis Basophils/100 WBC (Bld) 0.6 % Normal 0.2-2.0 [facility] Comment on above: Performed By: #### C BC ####[facility] [address] [place], [place] [address]Dr. Juan Carlos Francis EO # 0.2 103/ul Normal 0.0-0.7 [facility] Comment on above: Performed By: #### C BC ####[facility] [address] [place] [address]Dr. Juan Carlos Francis Eosinophils/100 WBC (Bld) 2.4 % Normal 0.9-7.0 [facility] Comment on above: Performed By: #### C BC ####[facility] [address] [place] [address]Dr. Juan Carlos Francis Erythrocyte distribution width (RBC) [Ratio] 13.2 % Normal 11.0-15.0 [facility] Comment on above: Performed By: #### C BC ####[facility] [address] [place], [place] [address]Dr. Juan Carlos Francis Hematocrit (Bld) [Volume fraction] 43.4 % Normal 42.0-54.0 [facility] Comment on above: Performed By: #### C BC ####[facility] [address] [place], [place] [address]Dr. Juan Carlos Francis Hemoglobin (Bld) [Mass/Vol] 14.5 g/dL Normal 14.0-18.0 [facility] Comment on above: Performed By: #### C BC ####[facility] [address] [place], [place] [address]Dr. Juan Carlos Francis IG # 0.02 10e3/ul Normal 0.00-0.03 [facility] Comment on above: Performed By: #### C BC ####[facility] [address] [place], [place] [address]Dr. Juan Carlos Francis IG % 0.2 % Normal 0.0-0.5 [facility] Comment on above: Performed By: #### C BC ####[facility] [address] [place], [place] [address]Dr. Juan Carlos Francis LYMPH # 1.6 103/ul Normal 1.2-3.8 [facility] Comment on above: Performed By: #### C BC ####[facility] [address] [place], [place] [address]Dr. Juan Carlos Francis Lymphocytes/100 WBC (Bld) 20.3 % Critically low 20.5-60.0 [facility] Comment on above: Performed By: #### C BC ####[facility] [address] [place] [address]Dr. Juan Carlos Francis MANUAL DIFF REQ NO Normal [facility] Comment on above: Performed By: #### C BC ####[facility] [address] [place] [address]Dr. Juan Carlos Francis MCH (RBC) [Entitic mass] 29.8 pg Normal 25.9-34.0 [facility] Comment on above: Performed By: #### C BC ####[facility] [address] [place] [address]Dr. Juan Carlos Francis MCHC (RBC) [Mass/Vol] 33.4 g/dL Normal 29.9-35.2 [facility] Comment on above: Performed By: #### C BC ####[facility] [address] [place], [place] [address]Dr. Juan Carlos Francis MCV (RBC) [Entitic vol] 89.1 fL Normal 80.0-94.0 [facility] Comment on above: Performed By: #### C BC ####[facility] [address] [place], [place] [address]Dr. Juan Carlos Francis MONO # 0.6 103/ul Normal 0.3-0.8 [facility] Comment on above: Performed By: #### C BC ####[facility] [address] [place], [place] [address]Dr. Juan Carlos Francis Monocytes/100 WBC (Bld) 6.9 % Normal 1.7-12.0 [facility] Comment on above: Performed By: #### C BC ####[facility] [address] [place], [place] [address]Dr. Juan Carlos Francis NEUT # 5.6 103/ul Normal 1.4-6.5 [facility] Comment on above: Performed By: #### C BC ####[facility] [address] [place], [place] [address]Dr. Juan Carlos Francis Neutrophils/100 WBC (Bld) 69.6 % Normal 43.0-75.0 [facility] Comment on above: Performed By: #### C BC ####[facility] [address] [place] [address]Dr. Juan Carlos Francis Platelet mean volume (Bld) [Entitic vol] 8.3 fL Critically low 9.5-13.5 [facility] Comment on above: Performed By: #### C BC ####[facility] [address] [place] [address]Dr. Juan Carlos Francis PLT 352 103/ul Normal 150-450 [facility] Comment on above: Performed By: #### C BC ####[facility] [address] [place] [address]Dr. Juan Carlos Francis RBC 4.87 106/ul Normal 4.70-6.10 [facility] Comment on above: Performed By: #### C BC ####[facility] [address] [place] [address]Dr. Juan Carlos Francis WBC 8.1 103/ul Normal 4.0-11.0 [facility] Comment on above: Performed By: #### C BC ####[facility] [address] [place] [address]DrFortino Francis CRPon 11-20-2021 CRP [Mass/Vol] mg/L Normal <=1.0 [facility] Comment on above: Performed By: #### B MP, CRP #### [facility] [address] [address] [address] Juan Carlos STEELE STAINon 11-20-2021 DIPHTHEROIDS Normal [facility] Comment on above: Performed By: #### G STAIN #### [facility] [address] [address] [address] Juan Carlos Francis EPITHELIALS Normal [facility] Comment on above: Performed By: #### G STAIN #### [facility] [address] [address] [address] Juan Carlos Francis FUNGAL ELEMENTS Normal [facility] Comment on above: Performed By: #### G STAIN #### [facility] [address] [address] [address] Yilan Francis GRAM NEG BACILLI FEW Normal [facility] Comment on above: Performed By: #### G STAIN #### [facility] [address] [address] [address] Juan Carlos Francis GRAM NEG DIPPLOCOCCI Normal [facility] Comment on above: Performed By: #### G STAIN #### [facility] [address] [address] [address] Juan Carlos Francis GRAM POS BACILLI Normal [facility] Comment on above: Performed By: #### G STAIN #### [facility] [address] [address] [address] Juan Carlos Francis GRAM POSITIVE COCCI FEW Normal [facility] Comment on above: Performed By: #### G STAIN #### [facility] [address] [address] [address] Juan Carlos Francis GRAM STAIN SOURCE Rt Lateral Ankle Normal [facility] Comment on above: Performed By: #### G STAIN #### [facility] [address] [place] [address] Dr. Juan Carlos Francis GS_DIPTH [facility] Comment on above: Performed By: #### G STAIN #### [facility] [address] [address] [address] Juan Carlos Francis WBC RARE [facility] Comment on above: Performed By: #### G STAIN #### [facility] [address] [place] [address] Dr. Juan Carlos Francis PROF CHEM 8 (BAS METB)on Anion gap [Moles/Vol] 14.2 mmol/L [facility] Comment on above: Performed By: #### B MP, CRP #### [facility] [address] [place] [address] Dr. Juan Carlos Francis Calcium [Mass/Vol] 9.1 mg/dL Normal 8.5-10.1 [facility] Comment on above: Performed By: #### B MP, CRP #### [facility] [address] [place] [address] Dr. Juan Carlos Francis Chloride [Moles/Vol] 100 mmol/L Normal 98-107 [facility] Comment on above: Performed By: #### B MP, CRP #### [facility] [address] [address] [address] Juan Carlos Francis CO2 [Moles/Vol] 30.2 mmol/L Normal 21.0-32.0 [facility] Comment on above: Performed By: #### B MP, CRP #### [facility] [address] [address] [address] Juan Carlos Francis Creatinine [Mass/Vol] 1.02 mg/dL Normal 0.70-1.30 [facility] Comment on above: Performed By: #### B MP, CRP #### [facility] [address] [address] [address] Juan Carlos Francis EGFR-AF WELSH >60 Normal >=60 [facility] Comment on above: Performed By: #### B MP, CRP #### [facility] [address] [address] [address] Juan Carlos Francis EGFR-NON AF WELSH >60 Normal >=60 [facility] Comment on above: Performed By: #### B MP, CRP #### [facility] [address] [address] [address] Juan Carlos Francis Glucose [Mass/Vol] 113 mg/dL Critically high 74-106 [facility] Comment on above: Performed By: #### B MP, CRP #### [facility] [address] [address] [address] Juan Carlos Francis Potassium [Moles/Vol] 4.4 mmol/L Normal 3.5-5.1 [facility] Comment on above: Performed By: #### B MP, CRP #### [facility] [address] [address] [address] Juan Carlos Francis Sodium [Moles/Vol] 140 mmol/L Normal 136-145 [facility] Comment on above: Performed By: #### B MP, CRP #### [facility] [address] [address] [address] Juan Carlos Francis Urea nitrogen [Mass/Vol] 11.0 mg/dL Normal 7.0-18.0 [facility] Comment on above: Performed By: #### B MP, CRP #### [facility] [address] [place] [address] Dr. Juan Carlos Francis Urea nitrogen/Creatinine [Mass ratio] 10.8 mg/mg Normal [facility] Comment on above: Performed By: #### B MP, CRP #### [facility] [address] [place] [address] Dr. Juan Carlos Francis SED RATE WESTERGRENon 2021 SED RATE 3 mm/hr Normal <=15 [facility] Comment on above: Performed By: #### S EDR #### [facility] [address] [place] [address] Dr. Juan Carlos Francis CBC AUTO DIFFon 09-27-2021 BASO # 0.0 103/ul Normal 0.0-0.1 [facility] Comment on above: Performed By: #### C BC #### [facility] [address] [place] [address] Dr. Juan Carlos Francis Basophils/100 WBC (Bld) 0.2 % Normal 0.2-2.0 [facility] Comment on above: Performed By: #### C BC #### [facility] [address] [place] [address] Dr. Juan Carlos Francis EO # 0.1 103/ul Normal 0.0-0.7 [facility] Comment on above: Performed By: #### C BC #### [facility] [address] [place] [address] Dr. Juan Carlos Francis Eosinophils/100 WBC (Bld) 0.5 % Critically low 0.9-7.0 [facility] Comment on above: Performed By: #### C BC #### [facility] [address] [place] [address] Dr. Juan Carlos Francis Erythrocyte distribution width (RBC) [Ratio] 12.4 % Normal 11.0-15.0 [facility] Comment on above: Performed By: #### C BC #### [facility] [address] [place] [address] Dr. Juan Carlos Francis Hematocrit (Bld) [Volume fraction] 38.2 % Critically low 42.0-54.0 [facility] Comment on above: Performed By: #### C BC #### [facility] [address] [address] [address] Juan Carlos Francsi Hemoglobin (Bld) [Mass/Vol] 13.3 g/dL Critically low 14.0-18.0 [facility] Comment on above: Performed By: #### C BC #### [facility] [address] [address] [address] Juan Carlos Francis IG # 0.11 10e3/ul Critically high 0.00-0.03 [facility] Comment on above: Performed By: #### C BC #### [facility] [address] [address] [address] Juan Carlos Francis IG % 1.0 % Critically high 0.0-0.5 [facility] Comment on above: Performed By: #### C BC #### [facility] [address] [address] [address] Juan Carlos Francis LYMPH # 1.1 103/ul Critically low 1.2-3.[address] [facility] Comment on above: Performed By: #### C BC #### [facility] [address] [address] [address] Juan Carlos Francis Lymphocytes/100 WBC (Bld) 9.2 % Critically low 20.5-60.0 [facility] Comment on above: Performed By: #### C BC #### [facility] [address] [address] [address] Juan Carlos Francis MANUAL DIFF REQ NO Normal [facility] Comment on above: Performed By: #### C BC #### [facility] [address] [address] [address] Juan Carlos Francis MCH (RBC) [Entitic mass] 30.6 pg Normal 25.9-34.0 [facility] Comment on above: Performed By: #### C BC #### [facility] [address] [address] [address] Juan Carlos Francis MCHC (RBC) [Mass/Vol] 34.8 g/dL Normal 29.9-35.2 [facility] Comment on above: Performed By: #### C BC #### [facility] [address] [address] [address] Juan Carlos Francis MCV (RBC) [Entitic vol] 88.0 fL Normal 80.0-94.0 [facility] Comment on above: Performed By: #### C BC #### [facility] [address] [address] [address] Juan Carlos Francis MONO # 1.2 103/ul Critically high 0.3-0.8 [facility] Comment on above: Performed By: #### C BC #### [facility] [address] [address] [address] Juan Carlos Francis Monocytes/100 WBC (Bld) 10.2 % Normal 1.7-12.0 [facility] Comment on above: Performed By: #### C BC #### [facility] [address] [address] [address] Juan Carlos Francis NEUT # 9.1 103/ul Critically high 1.4-6.5 [facility] Comment on above: Performed By: #### C BC #### [facility] [address] [address] [address] Juan Carlos Francis Neutrophils/100 WBC (Bld) 78.9 % Critically high 43.0-75.0 [facility] Comment on above: Performed By: #### C BC #### [facility] [address] [address] [address] Juan Carlos Francis Platelet mean volume (Bld) [Entitic vol] 8.9 fL Critically low 9.5-13.5 [facility] Comment on above: Performed By: #### C BC #### [facility] [address] [address] [address] Juan Carlos Francsi PLT 254 103/ul Normal 150-450 [facility] Comment on above: Performed By: #### C BC #### [facility] [address] [address] [address] Juan Carlos Francis RBC 4.34 106/ul Critically low 4.70-6.10 [facility] Comment on above: Performed By: #### C BC #### [facility] [address] [address] [address] Juan Carlos Francis WBC 11.6 103/ul Critically high 4.0-11.0 [facility] Comment on above: Performed By: #### C BC #### [facility] [address] [address] [address] Juan Carlos Francis PROF CHEM 8 (BAS METB)on Anion gap [Moles/Vol] 12.3 mmol/L Normal [facility] Comment on above: Performed By: #### B MP #### [facility] [address] [address] [address] Juan Carlos Francis Calcium [Mass/Vol] 8.7 mg/dL Normal 8.5-10.1 [facility] Comment on above: Performed By: #### B MP #### [facility] [address] [address] [address] Juan Carlos Francis Chloride [Moles/Vol] 95 mmol/L Critically low 98-107 [facility] Comment on above: Performed By: #### B MP #### [facility] [address] [address] [address] Juan Carlos Francis CO2 [Moles/Vol] 29.1 mmol/L Normal 21.0-32.0 [facility] Comment on above: Performed By: #### B MP #### [facility] [address] [address] [address] Juan Carlos Francis Creatinine [Mass/Vol] 1.57 mg/dL Critically high 0.70-1.30 [facility] Comment on above: Performed By: #### B MP #### [facility] [address] [address] [address] Juan Carlos Francis EGFR-AF WELSH 58 mL/min/1.73m2 Critically low >=60 [facility] Comment on above: Performed By: #### B MP #### [facility] [address] [address] [address] Juan Carlos Francis EGFR-NON AF WELSH 48 mL/min/1.73m2 Critically low >=60 [facility] Comment on above: Performed By: #### B MP #### [facility] [address] [place], [place] [address] Dr. Juan Carlos Francis Glucose [Mass/Vol] 125 mg/dL Critically high 74-106 [facility] Comment on above: Performed By: #### B MP #### [facility] [address] [place], [place] [address] Dr. Juan Carlos Francis Potassium [Moles/Vol] 3.4 mmol/L Critically low 3.5-5.1 [facility] Comment on above: Performed By: #### B MP #### [facility] [address] [address] [address] Juan Carlos Francis Sodium [Moles/Vol] 133 mmol/L Critically low 136-145 [facility] Comment on above: Performed By: #### B MP #### [facility] [address] [address] [address] Juan Carlos Francis Urea nitrogen [Mass/Vol] 27.0 mg/dL Critically high 7.0-18.0 [facility] Comment on above: Performed By: #### B MP #### [facility] [address] [address] [address] Juan Carlos Francis Urea nitrogen/Creatinine [Mass ratio] 17.2 mg/mg Normal [facility] Comment on above: Performed By: #### B MP #### [facility] [address] [address] [address] Juan Carlos Francis POINT OF CARE GLUCOSEon Glucose [Mass/Vol] 115 mg/dL Critically high 74-106 [facility] Comment on above: Performed By: #### P OCGLUC ####[facility] [address] [place] [address]Dr. Juan Carlos Francis Covid-19 PCR ([facility])on 08-24 SARS-CoV-2 (COVID-19) RNA JOSE M+probe Ql (Unsp spec) Not detected Normal NOT DETECTED [facility] Comment on above: Result Comment: This test is not yet approved or cleared by the [place] FDA. When there are no FDA-approved or cleared tests available, and other criteria are met, FDA can make tests available under an emergency access mechanism called an Emergency Use Authorization (EUA). The EUA for this test is supported by the [place] of Health and Human Service's (HHS's) declaration [...] consistent with SARS-CoV-2. Performed By: #### [facility] #### [facility] [address] [address] [address] Juan Carlos Francis PROF CHEM 8 (BAS METB)on Anion gap [Moles/Vol] 13.1 mmol/L Normal [facility] Comment on above: Performed By: #### B MP ####[facility] [address] [address]Dr. Juan Carlos Francis Calcium [Mass/Vol] 9.4 mg/dL Normal 8.5-10.1 [facility] Comment on above: Performed By: #### B MP ####[facility] [address] [phone]. Juan Carlos Francis Chloride [Moles/Vol] 99 mmol/L Normal 98-107 [facility] Comment on above: Performed By: #### B MP ####[facility] [address] [id number]. Juan Carlos Francis CO2 [Moles/Vol] 30.5 mmol/L Normal 21.0-32.0 [facility] Comment on above: Performed By: #### B MP ####[facility] [address] [address]DrFortino Francis Creatinine [Mass/Vol] 1.12 mg/dL Normal 0.70-1.30 [facility] Comment on above: Performed By: #### B MP ####[facility] [address] [address]Dr. Juan Carlos Francis EGFR-AF WELSH >60 Normal >=60 [facility] Comment on above: Performed By: #### B MP ####[facility] [address] [address]Dr. Juan Carlos Francis EGFR-NON AF WELSH >60 Normal >=60 [facility] Comment on above: Performed By: #### B MP ####[facility] [address] [id number]. Siennagualberto Tito Glucose [Mass/Vol] 124 mg/dL Critically high 74-106 [facility] Comment on above: Performed By: #### B MP ####[facility] [address] [address]Dr. Juan Carlos Francis Potassium [Moles/Vol] 3.6 mmol/L Normal 3.5-5.1 [facility] Comment on above: Performed By: #### B MP ####[facility] [address] [place], [place] [address]Dr. Juan Carlos Francis Sodium [Moles/Vol] 139 mmol/L Normal 136-145 [facility] Comment on above: Performed By: #### B MP ####[facility] [address] [address]Dr. Siennagualberto Tito Urea nitrogen [Mass/Vol] 7.0 mg/dL Normal 7.0-18.0 [facility] Comment on above: Performed By: #### B MP ####[facility] [address] [place], [place] [address]Dr. Juan Carlos Francis Urea nitrogen/Creatinine [Mass ratio] 6.2 mg/mg Normal [facility] Comment on above: Performed By: #### B MP ####[facility] [address] [place], [place] [address]Dr. Juan Carlos Tito CT ANKLE RT WO CONon 022 CT [...] by: MANUELITO MONTOYA Date: 2021-09-05 21:41 Normal [facility] XR ankle RT min 3V*on 2021 XR ankle RT min 3V* [facility] Main [employer] [address] [place] [address] XRay Report Signed Patient: Raza Dooley MR#: [id number] 13 : 1975 Acct:[id number] Age/Sex: 46 / M ADM Date: 09/05/21 Loc: [facility] [place] [place] Room: Type: [facility] Attending Dr: Anuel Albert DPM MS Copies to: Anuel Albert DPM, Ordering Provider: Anuel Albert DPM, MS Date of Service: 09/05/21 XR/XR ankle RT min 3V*: M25.571 ([id number]) XR/XR foot RT min 3V*: M25.751 XR [...] Reji Machado M.D.09/05/2021 2:01 PM Dictation Location: [place] [address] Transcribed By: [facility] 09/05/21 1401 Dictated By: Reji Machado II, MD 09/05/21 1357 Signed By: 09/05/21 1401 [facility] XR Ankle Complete Righton XR [...] signed by Nela Nunez on 08/28/2021 0815 [facility] [employer] Hand[employer]ching Machine Encounters Encounter Date Encounter Type Care Provider Facility Start: 05-31-2023 End: 06-01-2023 ambulatory [facility] Start: 05-29-2023 End: 05-30-2023 ambulatory [facility] Start: 05-27-2023 End: 05-27-2023 Subsequent hospital visit by physician eDna Berkowitz [facility] Start: 05-24-2023 End: 05-25-2023 ambulatory [facility] Start: 08-27-2022 ambulatory ANUEL ALBERT Faci lity:H1 Start: 08-13-2022 ambulatory ANUEL ALBERT Faci lity:H1 Start: 07-09-2022 End: 07-10-2022 ambulatory ANUEL ALBERT Facility:H1 Start: 06-20-2022 End: 06-21-2022 ambulatory ANUEL ALBERT Facility:H1 Start: 03-12-2022 End: 03-13-[address] DOCTOR SADLER Facility:H1 Start: 02-05-2022 End: 02-05-2022 Subsequent hospital visit by physician Peter Valentine [facility] Comment on above: Arrived Start: 02-02-2022 End: 02-02-2022 Subsequent hospital visit by physician Peter Valentine [facility] Comment on above: Arrived Start: 01-31-2022 End: 01-31-2022 Subsequent hospital visit by physician Peter Valentine [facility] Comment on above: Arrived Start: 01-29-2022 End: 01-29-2022 Subsequent hospital visit by physician Keerthi Monsalve PT [facility] Start: 01-26-2022 End: 01-26-2022 Subsequent hospital visit by physician Dena Berkowitz [facility] Start: 01-25-2022 End: 01-25-2022 Subsequent hospital visit by physician Peter Valentine [facility] Start: 01-24-2022 End: 01-25-2022 ambulatory ANUEL ALBERT Facility:H1 Start: 01-22-2022 End: 01-22-2022 Subsequent hospital visit by physician Dena Berkowitz [facility] Therapy Comment on above: Arrived Start: 12-29-2021 End: 12-30-2021 ambulatory ANUEL ALBERT Facility:H1 Start: 12-08-2021 End: 12-09-2021 ambulatory ANUEL ALBERT Facility:H1 Start: 11-24-2021 End: 11-25-2021 ambulatory ANUEL ALBERT Facility:H1 Start: 11-20-2021 End: 11-21-[address] DOCTOR SADLER Facility:H1 Start: 10-17-2021 End: 10-18-2021 ambulatory NEIL HANNA Facility:H1 Start: 09-27-2021 Encounter for preprocedural cardiovascular examination ANUEL ALBERT [facility] Start: 09-27-2021 Encounter for preprocedural laboratory examination ANUEL ALBERT [facility] Start: 09-26-2021 End: 09-27-2021 ambulatory ANUEL ALBERT Facility:H1 Start: 09-19-2021 End: 09-20-2021 ambulatory ANUEL ALBERT Facility:H1 Start: 09-19-2021 End: 09-20-2021 Encounter for preprocedural cardiovascular examination ANUEL ALBERT Facility:H1 Start: 09-05-2021 End: 09-06-2021 ambulatory ANUEL ALBERT Facility:H1 Start: 09-05-2021 End: 09-05-2021 Patient encounter procedure PHYSICIAN NO FAMILY [facility] Procedures Date Procedure Procedure Detail Performing Clinician Start: 09-05-2021 X-ray of right ankle PH YSICIAN NO FAMILY Start: 09-05-2021 X-ray of right foot PHY SICIAN NO FAMILY Plan of Treatment Date Care Activity Detail Author Start: 12-25-2023 Depression Screen Depression Screen [facility] Start: 06-07-2023 End: 06-07-2023 Patient encounter procedure 06/07/2023 7:30 AM EDT Appointment [facility] [address] [place] [address] Keerthi Monsalve, PT WC-6 of 18 visits valid until 06/28/2023-RT Ankle-[place]/ Peter Gustavoander [facility] Comment on above: WC-6 of 18 visits va lid until 06/28/2023-RT Ankle-[place]/ Peter Highlander Start: 06-05-2023 End: 06-05-2023 Patient encounter procedure 06/05/2023 8:00 AM EDT Appointment [facility] [address] [place] [address] Zach Mock, ELSA WC-5 of 18 visits valid until 06/28/2023-RT Ankle-Fatuma [place]/ Peter Highlander [facility] Comment on above: WC-5 of 18 visits va lid until 06/28/2023-RT Ankle-[place]/ Peter Highlander Start: 06-04-2023 End: 06-04-2023 Patient encounter procedure 06/04/2023 8:00 AM EDT Appointment [facility] [address] [place] [address] Zach Mock, ELSA WC-4 of 18 visits valid until 06/28/2023-RT Ankle-[place]/ Peter Gustavoander [facility] Comment on above: WC-4 of 18 visits va lid until 06/28/2023-RT Ankle-Fatuma [place]/ Anuel Chendaniele Start: 05-31-2023 End: 05-31-2023 Patient encounter procedure 05/31/2023 7:30 AM EST Appointment [facility] [address] [place] [address] Dena Berkowitz WC-3 of 18 visits valid until 06/28/2023-RT Ankle-Fatuma [place]/ Anuel Albert [facility] Comment on above: WC-3 of 18 visits va lid until 06/28/2023-RT Ankle-Fatuma [place]/ Anuel Chendaniele Start: 12-26-2022 Influenza vaccination Flu vaccine (# 1) [facility] Comment on above: Postponed from 10/23 (Patient Refused) Start: 12-24-2022 End: 12-24-2022 Patient encounter procedure 12/24/2022 Office Visit Family Medicine Rodrigue Harper MD [address] [place] [address] [facility] Start: 10-23-2022 Influenza vaccination Flu [facility] (# 1[facility] Start: 07-03-2022 Depression Screen Depression Screen [facility] Start: 02-21-2022 End: 02-21-2022 Patient encounter procedure 02/21/2022 Appointment Physical Therapy Keerthi Monsalve PT [facility] Start: 02-19-2022 End: 02-19-2022 Patient encounter procedure 02/19/2022 Appointment Physical Therapy Peter Valentine [facility] Start: 02-16-2022 End: 02-16-2022 Patient encounter procedure 02/16/2022 Appointment Physical Therapy Keerthi Monsalve PT [facility] Start: 02-14-2022 End: 02-14-2022 Patient encounter procedure 02/14/2022 Appointment Physical Therapy Keerthi Monsalve PT [facility] Start: 02-12-2022 End: 02-12-2022 Patient encounter procedure 02/12/2022 Appointment Physical Therapy Peter Valentine [facility] Start: 02-07-2022 End: 02-07-2022 Patient encounter procedure 02/07/2022 Appointment Physical Therapy Peter Valentine [facility] Start: 02-05-2022 End: 02-05-2022 Patient encounter procedure 02/05/2022 Appointment Physical Peter Gordon [facility] Start: 02-02-2022 End: 02-02-2022 Patient encounter procedure 02/02/2022 Appointment Physical Therapy Peter Valentine [facility] Start: 01-31-2022 End: 01-31-2022 Patient encounter procedure 01/31/2022 Appointment Physical Therapy Peter Valentine [facility] Start: 01-29-2022 End: 01-29-2022 Patient encounter procedure 01/29/2022 Appointment Physical Therapy Keerthi Monsalve PT [facility] Start: 01-26-2022 Subsequent hospital visit by physician 01/26/2022 Hospital Encounter Physical Therapy Dena Berkowitz [facility] Start: 01-25-2022 End: 01-25-2022 Patient encounter procedure 01/25/2022 Appointment Physical Therapy Peter Valentine [facility] Start: 06-03-2019 Screening for malign ant neoplasm of colon [facility] Start: 2014 Lipid panel Lipids [facility] Start: 2009 Diabetes screen Diabetes screen [facility] Start: 1993 DTaP/Tdap/Td vaccine (1 - Tdap) DTaP/Tdap/Td vaccine (1 - Tdap) [facility] Start: 1992 Hepatitis C screening Hepatitis C sc reen [facility] Start: 1989 HIV screening HIV screen [facility] Start: 1975 COVID-19 Vaccine (#1) COVID-19 Vacci ne (#1) [facility] Start: 1974 Hepatitis B vaccine (1 of 3 - 3-dose series) Hepatitis B vaccine (1 of 3 - 3-dose series) [facility] Payers Date Payer Category Payer Unknown [id number] 2021 Unknown 2021 [id number] 1975 Unknown [id number] [id number] 1974 Unknown [id number] 2.16.840.1.085410.3.579.2.593 1974 Unknown [id number] 2.16.840.1.330180.3.579.2.593 1974 Unknown [id number] 2.16.840.1.090485.3.579.2.593 1974 Unknown [id number] 2.16.840.1.923111.3.579.2.593 1974 Unknown [id number] 2.16.840.1.726428.3.579.2.593 1974 Unknown [id number] 2.16.840.1.843807.3.579.2.593 1974 Unknown [id number] 2.16.840.1.464910.3.579.2.593 1974 Unknown [id number] 2.16.840.1.719808.3.579.2.593 1974 Unknown [id number] 2.16.840.1.290374.3.579.2.593 1974 Unknown [id number] 2.16.840.1.881167.3.579.2.593 1974 Unknown [id number] 2.16.840.1.629441.3.579.2.593 1974 Unknown [id number] 2.16.840.1.320654.3.579.2.593 1974 Unknown [id number] 2.16.840.1.526681.3.579.2.593 1974 Unknown [id number] 2.16.840.1.629780.3.579.2.593 1974 Unknown [id number] 2.16.840.1.650441.3.579.2.174 1974 Unknown [id number] 2.16.840.1.600855.3.579.2.174 1974 Unknown [id number] 2.16.840.1.770848.3.579.2.174 1959 Worker's Compensation [id number] Worker's Compensation Self-pay Self Pay [id number] Worker's Compensation Care Works [facility] [id number] Social History Date Type Detail Facility Start: 03-25-1989 End: 03-25-2018 Tobacco smoking status INIS Smoker (finding) [facility] Start: 1975 Sex Assigned At Male [facility] Start: 12-26-2021 [facility] [employer] Start: 03-25-1989 End: 03-25-2018 History of tobacco use Cigarette Smoker [employer] Phone: Start: 12-26-2021 End: 12-24-2022 Cigarettes smoked current (pack per day) - Reported 0.5 [employer] Phone: Start: 12-26-2021 Tobacco use and exposure User of smokeless tobacco [employer] Phone: History of tobacco use Chews Tobacco [employer] Phone: Start: 12-26-2021 End: 12-24-2022 Alcohol intake Current non-drinker of alcohol (finding) [employer] Phone: Start: 07-03-2021 History SDOH Financial 5 [employer] Work Phone: Start: 07-03-2021 History SDOH Food Worry 1 [employer] Work Phone: Start: 05-16-2020 History SDOH Transpo rt Med 2 [employer] Work Phone: Start: 05-16-2020 Education 13 [employer] Work Phone: Start: 1975 Sex Assigned At Not on file B ON [employer] Work Phone: Start: 12-24-2022 Tobacco use panel [employer] How hard is it for y ou to pay for the very basics like food, housing, medical care, and heating Not hard at all [employer] (I/We) worried wheth er (my/our) food would run out before (I/we) got money to buy more. Never true [employer] At any time in the p ast 12 months, were you homeless or living in prison [including now]? No [employer] Clinical Notes 09-27-2021 to 06-21-2022 Peter Valentine - 02/05/2022 7:30 AM Niki Valentine - 02/02/2022 7:30 AM Niki Valentine - 01/31/2022 7:30 AM Niki Cox - 01/29/2022 8:00 AM EST Note [...] authenticated by: MANUELITO LARA Date: 2022-06-21 08:09 [facility] 03-12-2022 Note PROCEDURE: XR FOOT R T [...] authenticated by: NIRMAL LYONS Date: 2022-03-12 21:58 [facility] 02-05-2022 History of Present illness Narrative Images from the original note were not included. [facility] Daily Note Date: 02/05/2022 Patient Name: Raza Dooley ACCT#: : 1975 (46 y.o.) Referring Provider (secondary): Dr. Anule Albert Diagnosis: R ankle pain, fractures R calcaneus Treatment Diagnosis: Right ankle pain Onset Date: 08/26/21 PT Insurance Information: [facility] Total # of Visits Approved: 18 Per [...] walk with heel to toe gait pattern-met Halfway Goals Time Frame for Halfway Goals : 18 Employment Educational Coord Goal 1: Improve functional activities with LEFS score >65/80 Halfway Goal 2: Patient to hold SLS R Le x10 sec forgood dynamic stability Post Treatment Pain: 04/03 Time In: 0730 Time Out : 0812 Timed Code Treatment Minutes: 42 Minutes Total Treatment Time: 42 Minutes Peter Valentine EXECUTIVE ASSISTANT Date: 02/05/2022 documented in this encounter [place] [employer] Phone: 02-02-2022 History of Present illness Narrative Images from the original note were not included. [facility] Daily Note Date: 02/02/2022 Patient Name: Raza Dooley : 1975 (46 y.o.) Referring Provider (secondary): Dr. Anuel Albert Diagnosis: R ankle pain, fractures R calcaneus Treatment Diagnosis: Right ankle pain Onset Date: 08/26/21 PT Insurance Information: [facility] Total # of Visits Approved: 18 Per [...] walk with heel to toe gait pattern-met Halfway Goals Time Frame for Halfway Goals : 18 Employment Educational Coord Goal 1: Improve functional activities with LEFS score >65/80 Employment Educational Coord Goal 2: Patient to hold SLS R Le x10 sec forgood dynamic stability Post Treatment Pain: 2/10 Time In: 0730 Time Out : 0805 Timed and total 35 min Peter Valentine EXECUTIVE ASSISTANT Date: 02/02/2022 documented in this encounter [employer] [employer] Phone: 01-31-2022 History of Present illness Narrative Images from the original note were not included. [facility] Daily Note Date: 01/31/2022 Patient Name: Raza Dooley ACCT#: : 1975 (46 y.o.) Referring Provider (secondary): Dr. Anuel Albert Diagnosis: R ankle pain, fractures R calcaneus Treatment Diagnosis: Right ankle pain Onset Date: 08/26/21 PT Insurance Information: [facility] Total # of Visits Approved: 18 Per [...] walk with heel to toe gait pattern-met Halfway Goals Time Frame for Employment Educational Coord Goals : 18 Halfway Goal 1: Improve functional activities with LEFS score >65/80 Employment Educational Coord Goal 2: Patient to hold SLS R Le x10 sec forgood dynamic stability Post Treatment Pain: 0/10 Time In: 0730 Time Out : 0805 Timed and total 35 min Peter Valentine EXECUTIVE ASSISTANT Date: 01/31/2022 documented in this encounter [facility] [employer] Phone: 01-29-2022 History of Present illness Narrative [facility] Date: 01/29/2022 Patient Name: Raza Dooley : 1975 Pt Cancelled Appt due to no reason for cancel. Peter Cox Date: 01/29/2022 documented in this encounter [facility] [employer] Phone: 01-26-2022 History of Present illness Narrative Physical Therapy [facility] Date: 01/26/2022 Patient Name: Raza Dooley : 1975 Patient is not feeling well. Will return on the next appointment. Idania Holland Date: 01/26/2022 documented in this encounter [facility] [employer] Phone: 01-25-2022 History of Present illness Narrative Images from the original note were not included. [facility] Daily Note Date: 01/25/2022 Patient Name: Raza Dooley ACCT#: : 1975 (46 y.o.) Referring Provider (secondary): Dr. Anuel Albert Diagnosis: R ankle pain, fractures R calcaneus Treatment Diagnosis: Right ankle pain Onset Date: 08/26/21 PT Insurance Information: [facility] Total # of Visits Approved: 18 Per [...] walk with heel to toe gait pattern Halfway Goals Time Frame for Halfway Goals : 18 Employment Educational Coord Goal 1: Improve functional activities with LEFS score >65/80 Employment Educational Coord Goal 2: Patient to hold SLS R Le x10 sec forgood dynamic stability Post Treatment Pain: 04/03 Time In: 0730 Time Out : 0812 Timed Code Treatment Minutes: 42 Minutes Total Treatment Time: 42 Minutes Peter Valentine EXECUTIVE ASSISTANT Date: 01/25/2022 [facility] Phone: 01-24-2022 Note PROCEDURE: XR FOOT R [...] by: MANUELITO LARA Date: 2022-01-24 19:12 [facility] 01-22-2022 History of Present illness Narrative Images from the original note were not included. Physical Therapy [facility] Daily Note Date: 01/22/2022 Patient Name: Raza Dooley : 1975 (46 y.o.) Referring Provider (secondary): Dr. Anuel Albert Diagnosis: R ankle pain, fractures R calcaneus Treatment Diagnosis: Right ankle pain Onset Date: 08/26/21 PT Insurance Information: [facility] Total # of Visits Approved: 18 Per Physician Order Total # of Visits to Date: 2 Pre-Treatment Pain: 2/10 Assessment Assessment: Patient rates pain today as [...] walk with heel to toe gait pattern Employment Educational Coord Goals Time Frame for Employment Educational Coord Goals : 18 Employment Educational Coord Goal 1: Improve functional activities with LEFS score >65/80 Halfway Goal 2: Patient to hold SLS R Le x10 sec forgood dynamic stability Post Treatment Pain: 0/10 Time In: 1023 Time Out : 1102 Timed Code Treatment Minutes: 39 Minutes Total Treatment Time:39 Minutes Dena Berkowitz PTA Date: 01/22/2022 documented in this encounter [employer] Phone: 12-08-2021 Note PROCEDURE: XR FOOT R [...] authenticated by: MANUELITO LARA Date: 2021-12-08 16:34 [facility] 11-20-2021 Note PROCEDURE: XR FOOT R T [...] by: MANUELITO LARA Date: 2021-11-20 11:36 [facility] 10-18-2021 Note PROCEDURE: XR FOOT R T [...] by: NIRMAL LYONS Date: 2021-10-18 07:52 [facility] 09-27-2021 Note PROCEDURE: XR FOOT R T [...] authenticated by: NIRMAL LYONS Date: 2021-09-27 13:28 [facility] 09-27-2021 Note PROCEDURE: XR FOOT R T 2V HISTORY: Pain COMPARISON: XR ankle and foot right 09/05/2021 FINDINGS: BONES:Multiple intraoperative images demonstrates mechanical fixation of calcaneal fracture and fusion of the talocalcaneal joint via 3 screws. IMPRESSION: 1. Screw fixation of prior calcaneal fracture and fusion of the talocalcaneal joint. Electronically authenticated by: NIRMAL LYONS Date: 2021-09-27 10:56 [facility] Evaluation note No assessment inform ation available [facility] Work Phone: Summary Purpose Family History No [...] section and content) DATE CREATED AUTHOR 08/28/2021 [facility] dical Specialist DATE CREATED AUTHOR AUTHOR'S ORGANIZ ATION 10/24/2021 [facility] DATE CREATED AUTHOR AUTHOR'S ORGANIZ ATION 07/12/2022 [facility] DATE CREATED AUTHOR AUTHOR'S ORGANIZ ATION 06/01/2023 Cherise Burkett [facility] Care Teams (unrecognized sec tion and content) Team Status: Inactive Member Role Status Dates PHYSICIAN NO FAMILY Primary Care Provider Active Anuel Albert DPM MS Attending Provider Active Team Status: Active Member Role Status Dates PHYSICIAN NO FAMILY Primary Care Provider Active Canal 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 Start Date End Date Rodrigue Harper MD [address] [place], [place] [id number] PCP - General Internal Medicine 05/16/20 Canal 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 Specialty Start Date End Date Rodrigue Harper MD [address] [place], [place] [id number] PCP - General Internal Medicine 05/16/20 Canal 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 Specialty Start Date End Date Rodrigue Harper MD [address] [place] [id number] PCP - General Internal Medicine 05/16/20 Canal 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 Specialty Start Date End Date Rodrigue Harper MD [address] [place] [id number] PCP - General Internal Medicine 05/16/20 Canal 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 Specialty Start Date End Date Rodrigue Harper MD [address] [place] [id number] PCP - General Internal Medicine 05/16/20 Canal 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 Specialty Start Date End Date Rodrigue Harper MD [address] [place] [id number] PCP - General Internal Medicine 05/16/20 Canal 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 Specialty Start Date End Date Rodrigue Harper MD [address] [place] [id number] PCP - General Internal Medicine 05/16/20 Goals [...] BE BASED ON THE PRIMARY CLINICAL RECORDS. [employer] [facility]. provides no warranty or guarantee of the accuracy or completeness of information in this document.
--- NOTE | 2023-06-03 08:13 | CT_ITS ---
The [address] [address] Patient Name: RAZA DOOLEY MRN: [facility]:[id number] date: 1975 Sex: M Assigned Patient Location: CT Current Patient Location: CT Accession/Order Number: [id number] Exam Date: 06/03/2023 08:07 Report Date: 06/03/2023 09:01 At the request of: ANUEL HARDING Procedure: CT ankle RT wo con EXAMINATION: CT ankle RT wo con HISTORY: Unspecified Fracture Of Right Calcaneus S92.001A COMPARISON: 01/10/2023 TECHNIQUE: Multi-planar CT images were created without IV contrast. Dose reduction techniques were achieved by using automated exposure control and/or adjustment of mA and/or kV according to patient size and/or use of iterative reconstruction technique. FINDINGS: BONES: Subtalar fusion with heterogeneous appearance of the calcaneus likely representing remote healed fracture. There is been interval exchange of previously noted hardware with 2 cannulated screws now observed 1 screw from cranial to caudal extends to the cortical margin along the posterior plantar calcaneus/heel. A second screw extends caudal to cranial with an associated 7 mm osteochondral defect along the talar dome. Lucency in the distal tibia likely from bone graft harvesting. SOFT TISSUES: Mild diffuse soft tissue swelling EFFUSION: None visible. OTHER: Negative. CT/CT ankle RT wo con IMPRESSION: Subtalar fusion with 7 mm osteochondral defect of the talus associated with the tip of one of the fixation screws Electronically authenticated by: MANUELITO LARA Date: 06/03/2023 09:01
== END 2023-06-03 07:55 | disposition home or self-care (01) ==
LOC: CT 07:54
PROVIDERS: Visit Provider Podiatrist Foot & Ankle Surgery
DX: S92.001A Unspecified fracture of right calcaneus, initial encounter for closed fracture (principal); M96.0 Pseudarthrosis after fusion or arthrodesis
CPT/HCPCS: 73700

== ENCOUNTER 2023-09-25 09:35 | Outpatient (OUT) | payer OTHER, SELFPAY ==
--- NOTE | 2023-09-25 | XR_ITS ---
The [address] [address] Patient Name: RAZA DOOLEY MRN: [id number] date: 1975 Sex: M Assigned Patient Location: Current Patient Location: Accession/Order Number: [id number] Exam Date: 09/25/2023 09:50 Report Date: 09/27/2023 09:40 At the request of: ANUEL HARDING Procedure: XR foot RT min 3V PROCEDURE: XR foot RT min 3V HISTORY: RIGHT FOOT PAIN COMPARISON: XR foot right 05/21/2023 FINDINGS: BONES:Prior talocalcaneal fusion via 2 screws with increasing lucency along margins of the screws suggesting movement. No hardware fracture. No bone fracture, dislocation, or change in alignment. SOFT TISSUES:No visible soft tissue swelling. EFFUSION:None visible. OTHER: Negative. XR/XR foot RT min 3V IMPRESSION: 1. Stable alignment, but suspected loosening/movement involving prior talocalcaneal fusion. Electronically authenticated by: RADHA GREENBERG Date: 09/27/2023 09:40
== END 2023-09-25 09:36 | disposition home or self-care (01) ==
PROVIDERS: Visit Provider Podiatrist Foot & Ankle Surgery
DX: M25.871 Other specified joint disorders, right ankle and foot (principal)
CPT/HCPCS: 73630

== ENCOUNTER 2023-11-13 13:37 | Outpatient (OUT) | payer OTHER, SELFPAY ==
--- NOTE | 2023-11-13 | XR_ITS ---
The [address] [address] Patient Name: RAZA DOOLEY MRN: [id number] date: 1975 Sex: M Assigned Patient Location: Current Patient Location: Accession/Order Number: [id number] Exam Date: 11/13/2023 13:38 Report Date: 11/15/2023 05:10 At the request of: ANUEL HARDING Procedure: XR foot RT min 3V PROCEDURE: XR foot RT min 3V HISTORY: RIGHT FOOT PAIN COMPARISON: XR foot right 09/25/2023 FINDINGS: BONES:Mechanical fusion of the talocalcaneal joint via 2 screws. Mild lucency along margins of calcaneal portions of the screws may indicate loosening. Mild degenerative change of the first metatarsophalangeal joint. SOFT TISSUES:No visible soft tissue swelling. EFFUSION:None visible. OTHER: Negative. XR/XR foot RT min 3V IMPRESSION: 1. Stable surgical changes with concern for slight movement or loosening of the calcaneal portions of the screws; not significantly changed compared to prior study. Electronically authenticated by: RADHA GREENBERG Date: 11/15/2023 05:10
== END 2023-11-13 13:38 | disposition home or self-care (01) ==
LOC: EC 13:38
PROVIDERS: Visit Provider Podiatrist Foot & Ankle Surgery
DX: M79.671 Pain in right foot (principal); M24.674 Ankylosis, right foot; Z98.890 Other specified postprocedural states
CPT/HCPCS: 73630

== ENCOUNTER 2023-12-18 09:06 | Outpatient (OUT) | payer OTHER, SELFPAY ==
--- NOTE | 2023-12-18 | XR_ITS ---
The [address] [address] Patient Name: RAZA DOOLEY MRN: [id number] date: 1975 Sex: M Assigned Patient Location: Current Patient Location: Accession/Order Number: [id number] Exam Date: 12/18/2023 09:08 Report Date: 12/20/2023 05:45 At the request of: ANUEL HARDING Procedure: XR calcaneus RT min 2V PROCEDURE: XR calcaneus RT min 2V HISTORY: RIGHT CALCANEUS PAIN COMPARISON: XR foot right 11/13/2023 FINDINGS: BONES:Prior calcaneal fracture with repair and talocalcaneal fusion via 2 screws. Stable mild lucency surrounding the calcaneal aspect of the screws. No hardware fracture or new bone fracture. Calcaneal fracture line is still visible. SOFT TISSUES:Mild soft tissue swelling. EFFUSION:None visible. OTHER: Negative. XR/XR calcaneus RT min 2V IMPRESSION: 1. Stable surgical changes and suspected ongoing bone healing of prior calcaneal fracture. Electronically authenticated by: RADHA GREENBERG Date: 12/20/2023 05:45
--- OUTSIDE RECORDS SUMMARY | 2023-12-18 09:23 | XMS_ITS | CCD ---
Author Organization [facility] Care Team Providers Care Terminal Operator Name Role Phone NO FAMILY, PHYSICIAN Primary Care Provider Sariva JEANNA Tariq Attending Provider Rodrigue Harper MD Primary Care Provider ANUEL [...] ANUEL ALBERT Admitting Unavailable SAVAGE ., DR FATUMA Denson Consulting Unavailable Nirmal Lyons Consulting Unavailable ANUEL ALBERT Consulting Unavailable PHILLY VILLANUEVA Consulting Unavailable AYYAANABEL .NGHIA Consulting Unavailable NICOLASA COSBY Consulting Unavailable NIRMAL MARIE Consulting Unavailable MISC, DR APPIAH Primary Care Unavailable NEIL HANNA Admitting Unavailable NEIL HANNA Attending Unavailable Nirmal Lyons Consulting Unavailable NEIL HANNA Consulting Unavailable ANUEL ALBERT Admitting Unavailable WEST, DR MANUELITO Jones Consulting Unavailable MISC, DR APPIAH Primary Care Unavailable BETY, ANUEL Raman Attending Unavailable HIGHLANDER, ANUEL Raman Consulting Unavailable JACQUES, NEIL Attending Unavailable Nirmal Lyons Consulting Unavailable JACQUES, NEIL Admitting Unavailable JACQUES, NEIL Consulting Unavailable MISC, DR APPIAH Primary Care Unavailable MISC, DR APPIAH Consulting Unavailable JACQUES, NEIL Attending Unavailable JACQUES, NEIL Admitting Unavailable JACQUES, NEIL Consulting Unavailable HIGHLANDER, ANUEL D Attending Unavailable HIGHLANDER, ANUEL D Admitting Unavailable HIGHLANDER, ANUEL Raman Consulting Unavailable Manuelito Montoya Consulting Unavailable HIGHLANDER, ANUEL Raman Admitting Unavailable WEST, DR MANUELITO Jones Consulting Unavailable REQUEST, DR NICOL LISTED Primary Care Unavaila ble BETY, ANUEL Raman Attending Unavailable HIGHLANDER, ANUEL D Consulting Unavailable HIGHLANDER, PETER D Admitting Unavailable MISC, DR APPIAH Primary Care Unavailable WEST, DR MANUELITO Jones Consulting Unavailable HIGHLANDER, ANUEL Raman Attending Unavailable HIGHLANDER, ANUEL D Consulting Unavailable Ghazarian , [facility] Primary Care Provider GHAZARIAN, RODRIGUE Primary Care Unavailable JACQUES, NEIL Referring Unavailable GHAZARIAN, RODRIGUE Primary Care Unavailable JACQUES, NEIL Referring Unavailable GHAZARIAN, RODRIGUE Primary Care Unavailable JACQUES, NEIL Referring Unavailable JACQUES, NEIL Referring Unavailable GHAZARIAN, RODRIGUE Primary Care Unavailable JACQUES, NEIL Referring Unavailable GHAZARIAN, RODRIGUE Primary Care Unavailable JACQUES, NEIL Referring Unavailable GHAZARIAN, RODRIGUE Primary Care Unavailable JACQUES, NEIL Referring Unavailable GHAZARIAN, RODRIGUE Primary Care Unavailable JACQUES, NEIL Referring Unavailable GHAZARIAN, RODRIGUE Primary Care Unavailable JACQUES, NEIL Referring Unavailable GHAZARIAN, RODRIGUE Primary Care Unavailable JACQUES, NEIL Referring Unavailable GHAZARIAN, RODRIGUE Primary Care Unavailable JACQUES, NEIL Referring Unavailable GHAZARIAN, RODRIGUE Primary Care Unavailable JACQUES, NEIL Referring Unavailable GHAZARIAN, RODRIGUE Primary Care Unavailable JACQUES, NEIL Referring Unavailable GHAZARIAN, RODRIGUE Primary Care Unavailable JACQUES, NEIL Referring Unavailable GHAZARIAN, RODRIGUE Primary Care Unavailable Allergies Allergy Classification Reported Allergen(s) Allergy Type Date of Onset Reaction(s) Facility (13 sources) Penicillins Allergy to substance 02-05-2012 [facility] (1 source) Penicillin Drug Allergy [facility] Repository Medications Current Medications Medication Drug Class(es) [...] 2017 2:23pm ibuprofen 800 mg oral tablet (12 sources) Nonsteroidal Anti-inflammatory Drug Start: 12-08-2021 take 1 tablet by mouth every eight hours as needed for pain ibuprofen (ADVIL;MOTRIN) 800 MG tablet TAKE 1 TABLET BY MOUTH EVERY 8 HOURS NEEDED FOR PAIN 0 12/08/2021 Active losartan potassium 100 mg oral tablet (12 sources) Angiotensin 2 Receptor Carson Start: 12-24-2022 [...] Active metoprolol tartrate 25 mg oral tablet (5 sources) beta-Adrenergic Carson Start: 12-24-2022 take 0.5 tablet [...] WITHOUT ESOPHAGITIS] Onset: 10-02-2021 Chronic Essential hypertension (13 sources) Essential hypertension; Translations: [Essential (primary) hypertension] [...] Range Facility CT ANKLE RT WO CONon -17-[address] ANKLE RT WO CON EXAMINATION: [...] by: MANUELITO LARA Date: 2022-07-09 18:28 Normal [facility] WOUND CULTUREon 11-25-2021 Antimicrobial Susceptibility Comment Normal [facility] Comment on above: Result Comment: S = [...] Trimethoprim/Sulfa S Performed By: #### C XWND ####[facility] [address] [place], [place] [address]Dr. Juan Carlos Francis Bacteria identified Aer cx Nom (Unsp spec) Final report Abnormal [facility] Comment on above: Performed By: #### C XWND ####[facility] Ifsuxlmqst[address] [place], [place] [address]Dr. Juan Carlos Francis Result 1 Proteus hauseri Abnormal [facility] Comment on above: Result Comment: Mult i-Drug Resistant Organism Susceptibility profile is consistent with a probable ESBL. Heavy growth Performed By: #### C XWND ####[facility] [address] [place], [place] [address]Dr. Juan Carlos Francis Result 2 Comment Abnormal [facility] Comment on above: Result Comment: Pseu domonas aeruginosa Heavy growth Performed By: #### C XWND ####[facility] Opaxlpyn[address] [place], [place] [address]DrFortino Francis CBC AUTO DIFFon 11-20-2021 BASO # 0.1 103/ul Normal 0.0-0.1 [facility] Comment on above: Performed By: #### C BC ####[facility] Noebj[address] [place], [place] [address]Dr. Juan Carlos Tito Basophils/100 WBC (Bld) 0.6 % Normal 0.2-2.0 [facility] Comment on above: Performed By: #### C BC ####[facility] Ilvwjcym[address] [place], [place] [address]Dr. Siennagualberto Tito EO # 0.2 103/ul Normal 0.0-0.7 [facility] Comment on above: Performed By: #### C BC ####[facility] V[address]oziv[address]id[address] [place], [place] [address]Dr. Juan Carlos Francis Eosinophils/100 WBC (Bld) 2.4 % Normal 0.9-7.0 [facility] Comment on above: Performed By: #### C BC ####[facility] Z[address]saat[address] [place], [place] [address]Dr. Siennagualberto Francis Erythrocyte distribution width (RBC) [Ratio] 13.2 % Normal 11.0-15.0 [facility] Comment on above: Performed By: #### C BC ####[facility] Leadvbuooj[address] [place], [place] [address]Dr. Juan Carlos Francis Hematocrit (Bld) [Volume fraction] 43.4 % Normal 42.0-54.0 [facility] Comment on above: Performed By: #### C BC ####[facility] Xyxcq[address]znk[address] [place], [place] [address]Dr. Juan Carlos Francis Hemoglobin (Bld) [Mass/Vol] 14.5 g/dL Normal 14.0-18.0 [facility] Comment on above: Performed By: #### C BC ####[facility] [address] [place], [place] [address]Dr. Juan Carlos Francis IG # 0.02 10e3/ul Normal 0.00-0.03 [facility] Comment on above: Performed By: #### C BC ####[facility] [address] [id number]. Juan Carlos Francis IG % 0.2 % Normal 0.0-0.5 [facility] Comment on above: Performed By: #### C BC ####[facility] [address] [address]Dr. Juan Carlos Francis LYMPH # 1.6 103/ul Normal 1.2-3.8 [facility] Comment on above: Performed By: #### C BC ####[facility] Y[address]sc[address]aw[address] [place], [place] [address]Dr. Juan Carlos Francis Lymphocytes/100 WBC (Bld) 20.3 % Critically low 20.5-60.0 [facility] Comment on above: Performed By: #### C BC ####[facility] [address] [place], [place] [address]Dr. Juan Carlos Francis MANUAL DIFF REQ NO Normal [facility] Comment on above: Performed By: #### C BC ####[facility] [address] [address]Dr. Juan Carlos Tito MCH (RBC) [Entitic mass] 29.8 pg Normal 25.9-34.0 [facility] Comment on above: Performed By: #### C BC ####[facility] [address] [place], [place] [address]Dr. Juan Carlos Tito MCHC (RBC) [Mass/Vol] 33.4 g/dL Normal 29.9-35.2 [facility] Comment on above: Performed By: #### C BC ####[facility] Nsqlayyr[address] [place], [place] [address]DrFortino Francis MCV (RBC) [Entitic vol] 89.1 fL Normal 80.0-94.0 [facility] Comment on above: Performed By: #### C BC ####[facility] Ij[address] [place], [place] [address]DrFortino Francis MONO # 0.6 103/ul Normal 0.3-0.8 [facility] Comment on above: Performed By: #### C BC ####[facility] [address] [place], [place] [id number]. Juan Carlos Tito Monocytes/100 WBC (Bld) 6.9 % Normal 1.7-12.0 [facility] Comment on above: Performed By: #### C BC ####[facility] [address] [id number]. Juan Carlos Francis NEUT # 5.6 103/ul Normal 1.4-6.5 [facility] Comment on above: Performed By: #### C BC ####[facility] [address] [id number]. Juan Carlos Francis Neutrophils/100 WBC (Bld) 69.6 % Normal 43.0-75.0 [facility] Comment on above: Performed By: #### C BC ####[facility] [address] [address]Dr. Juan Carlos Francis Platelet mean volume (Bld) [Entitic vol] 8.3 fL Critically low 9.5-13.5 [facility] Comment on above: Performed By: #### C BC ####[facility] [address] [id number]. Juan Carlos Tito PLT 352 103/ul Normal 150-450 [facility] Comment on above: Performed By: #### C BC ####[facility] [address] [id number]. Juan Carlos Francis RBC 4.87 106/ul Normal 4.70-6.10 [facility] Comment on above: Performed By: #### C BC ####[facility] [address] [id number]. Juan Carlos Tito WBC 8.1 103/ul Normal 4.0-11.0 [facility] Comment on above: Performed By: #### C BC ####[facility] [address] [place] [id number] Francis CRPon 11-20-2021 CRP [Mass/Vol] mg/L Normal <=1.0 [facility] Comment on above: Performed By: #### B MP, CRP #### [facility] [id number] Juan Carlos STEELE STAINon 11-20-2021 DIPHTHEROIDS Normal [facility] Comment on above: Performed By: #### G STAIN #### [facility] [address] [address] [address] Juan Carlos Francis EPITHELIALS Normal [facility] Comment on above: Performed By: #### G STAIN #### [facility] [address] [address] [address] Juan Carlos Francis FUNGAL ELEMENTS Normal [facility] Comment on above: Performed By: #### G STAIN #### [facility] [address] [address] [address] Juan Carlos STEELE NEG BACILLI FEW [facility] Comment on above: Performed By: #### G STAIN #### [facility] [address] [place] [address] Dr. Juan Carlos STEELE NEG DIPPLOCOCCI [facility] Comment on above: Performed By: #### G STAIN #### [facility] [address] [address] [address] Juan Carlos STEELE POS BACILLI [facility] Comment on above: Performed By: #### G STAIN #### [facility] [address] [address] [address] Juan Carlos Francis GRAM POSITIVE COCCI FEW [facility] Comment on above: Performed By: #### G STAIN #### [facility] [address] [place] [address] Dr. Juan Carlos Francis GRAM STAIN SOURCE Rt Lateral Ankle Normal T [facility] Comment on above: Performed By: #### G STAIN #### [facility] [address] [place] [address] Dr. Juan Carlos Francis GS_DIPTH [facility] Comment on above: Performed By: #### G STAIN #### [facility] [address] [address] [address] Juan Carlos Francis WBC RARE Normal [facility] Comment on above: Performed By: #### G STAIN #### [facility] [address] [address] [address] Juan Carlos Francis PROF CHEM 8 (BAS METB)on Anion gap [Moles/Vol] 14.2 mmol/L Normal [facility] Comment on above: Performed By: #### B MP, CRP #### [facility] [address] [place] [address] Dr. Juan Carlos Francis Calcium [Mass/Vol] 9.1 mg/dL Normal 8.5-10.1 [facility] Comment on above: Performed By: #### B MP, CRP #### [facility] [address] [place] [address] Dr. Juan Carlos Francis Chloride [Moles/Vol] 100 mmol/L Normal 98-107 [facility] Comment on above: Performed By: #### B MP, CRP #### [facility] [address] [place] [address] Dr. Juan Carlos Francis CO2 [Moles/Vol] 30.2 mmol/L Normal 21.0-32.0 [facility] Comment on above: Performed By: #### B MP, CRP #### [facility] [address] [place] [address] Dr. Juan Carlos Francis Creatinine [Mass/Vol] 1.02 mg/dL Normal 0.70-1.30 [facility] Comment on above: Performed By: #### B MP, CRP #### [facility] [address] [place] [address] Dr. Juan Carlos Francis EGFR-AF IVORIAN >60 Normal >=60 [facility] Comment on above: Performed By: #### B MP, CRP #### [facility] [address] [place] [address] Dr. Juan Carlos Francis EGFR-NON AF IVORIAN >60 Normal >=60 [facility] Comment on above: Performed By: #### B MP, CRP #### [facility] [address] [place] [address] Dr. Juan Carlos Francis Glucose [Mass/Vol] 113 mg/dL Critically high 74-106 [facility] Comment on above: Performed By: #### B MP, CRP #### [facility] [address] [place] [address] Dr. Juan Carlos Francis Potassium [Moles/Vol] 4.4 mmol/L Normal 3.5-5.1 [facility] Comment on above: Performed By: #### B MP, CRP #### [facility] [address] [place] [address] Dr. Juan Carlos Francis Sodium [Moles/Vol] 140 mmol/L Normal 136-145 [facility] Comment on above: Performed By: #### B MP, CRP #### [facility] [address] [place] [address] Dr. Juan Carlos Francis Urea nitrogen [Mass/Vol] 11.0 mg/dL Normal 7.0-18.0 [facility] Comment on above: Performed By: #### B MP, CRP #### [facility] [address] [place] [address] Dr. Juan Carlos Francis Urea nitrogen/Creatinine [Mass ratio] 10.8 mg/mg Normal [facility] Comment on above: Performed By: #### B MP, CRP #### [facility] [address] [place] [address] Dr. Juan Carlos Francis [facility] SED [facility] 3 mm/hr Normal <=15 [facility] Comment on above: Performed By: #### S EDR #### [facility] [address] [place] [address] Dr. Juan Carlos Francis CBC AUTO DIFFon 09-27-2021 BASO # 0.0 103/ul Normal 0.0-0.1 [facility] Comment on above: Performed By: #### C BC #### [facility] [address] [place] [address] Dr. Juan Carlos Francis Basophils/100 WBC (Bld) 0.2 % Normal 0.2-2.0 [facility] Comment on above: Performed By: #### C BC #### [facility] [address] [place] [address] Dr. Juan Carlos Francis EO # 0.1 103/ul Normal 0.0-0.7 [facility] Comment on above: Performed By: #### C BC #### [facility] [address] [place] [address] Dr. Juan Carlos Francis Eosinophils/100 WBC (Bld) 0.5 % Critically low 0.9-7.0 [facility] Comment on above: Performed By: #### C BC #### [facility] [address] [address] [address] Juan Carlos Francis Erythrocyte distribution width (RBC) [Ratio] 12.4 % Normal 11.0-15.0 [facility] Comment on above: Performed By: #### C BC #### [facility] [address] [address] [address] Juan Carlos Francis Hematocrit (Bld) [Volume fraction] 38.2 % Critically low 42.0-54.0 [facility] Comment on above: Performed By: #### C BC #### [facility] [address] [place] [address] Dr. Juan Carlos Francis Hemoglobin (Bld) [Mass/Vol] 13.3 g/dL Critically low 14.0-18.0 [facility] Comment on above: Performed By: #### C BC #### [facility] [address] [place] [address] Dr. Juan Carlos Francis IG # 0.11 10e3/ul Critically high 0.00-0.03 [facility] Comment on above: Performed By: #### C BC #### [facility] [address] [place] [address] Dr. Juan Carlos Francis IG % 1.0 % Critically high 0.0-0.5 [facility] Comment on above: Performed By: #### C BC #### [facility] [address] [place] [address] Dr. Juan Carlos Francis LYMPH # 1.1 103/ul Critically low 1.2-3.8 [facility] Comment on above: Performed By: #### C BC #### [facility] [address] [place] [address] Dr. Juan Carlos Francis Lymphocytes/100 WBC (Bld) 9.2 % Critically low 20.5-60.0 [facility] Comment on above: Performed By: #### C BC #### [facility] [address] [place] [address] Dr. Juan Carlos Francis MANUAL DIFF REQ NO Normal [facility] Comment on above: Performed By: #### C BC #### [facility] [address] [place] [address] Dr. Juan Carlos Francis MCH (RBC) [Entitic mass] 30.6 pg Normal 25.9-34.0 [facility] Comment on above: Performed By: #### C BC #### [facility] [address] [place] [address] Dr. Juan Carlos Francis MCHC (RBC) [Mass/Vol] 34.8 g/dL Normal 29.9-35.2 [facility] Comment on above: Performed By: #### C BC #### [facility] [address] [place] [address] Dr. Juan Carlos Francis MCV (RBC) [Entitic vol] 88.0 fL Normal 80.0-94.0 [facility] Comment on above: Performed By: #### C BC #### [facility] [address] [place] [address] Dr. Juan Carlos Francis MONO # 1.2 103/ul Critically high 0.3-0.8 [facility] Comment on above: Performed By: #### C BC #### [facility] [address] [place] [address] Dr. Juan Carlos Francis Monocytes/100 WBC (Bld) 10.2 % Normal 1.7-12.0 [facility] Comment on above: Performed By: #### C BC #### [facility] [address] [place] [address] Dr. Juan Carlos Francis NEUT # 9.1 103/ul Critically high 1.4-6.5 [facility] Comment on above: Performed By: #### C BC #### [facility] [address] [place] [address] Dr. Juan Carlos Francis Neutrophils/100 WBC (Bld) 78.9 % Critically high 43.0-75.0 [facility] Comment on above: Performed By: #### C BC #### [facility] [address] [place] [address] Dr. Juan Carlos Francis Platelet mean volume (Bld) [Entitic vol] 8.9 fL Critically low 9.5-13.5 [facility] Comment on above: Performed By: #### C BC #### [facility] [address] [place] [address] Dr. Juan Carlos Francis PLT 254 103/ul Normal 150-450 [facility] Comment on above: Performed By: #### C BC #### [facility] [address] [address] [address] Juan Carlos Francis RBC 4.34 106/ul Critically low 4.70-6.10 [facility] Comment on above: Performed By: #### C BC #### [facility] [address] [place] [address] Dr. Juan Carlos Francis WBC 11.6 103/ul Critically high 4.0-11.0 [facility] Comment on above: Performed By: #### C BC #### [facility] [address] [place] [address] Dr. Juan Carlos Francis PROF CHEM 8 (BAS METB)on Anion gap [Moles/Vol] 12.3 mmol/L Normal [facility] Comment on above: Performed By: #### B MP #### [facility] [address] [place] [address] Dr. Juan Carlos Francis Calcium [Mass/Vol] 8.7 mg/dL Normal 8.5-10.1 [facility] Comment on above: Performed By: #### B MP #### [facility] [address] [place] [address] Dr. Juan Carlos Francis Chloride [Moles/Vol] 95 mmol/L Critically low 98-107 [facility] Comment on above: Performed By: #### B MP #### [facility] [address] [place] [address] Dr. Juan Carlos Francis CO2 [Moles/Vol] 29.1 mmol/L Normal 21.0-32.0 [facility] Comment on above: Performed By: #### B MP #### [facility] [address] [place] [address] Dr. Juan Carlos Francis Creatinine [Mass/Vol] 1.57 mg/dL Critically high 0.70-1.30 [facility] Comment on above: Performed By: #### B MP #### [facility] [address] [address] [address] Juan Carlos Francis EGFR-AF IVORIAN 58 mL/min/1.73m2 Critically low >=60 [facility] Comment on above: Performed By: #### B MP #### [facility] [address] [address] [address] Juan Carlos Francis EGFR-NON AF IVORIAN 48 mL/min/1.73m2 Critically low >=60 [facility] Comment on above: Performed By: #### B MP #### [facility] [address] [address] [address] Juan Carlos Francis Glucose [Mass/Vol] 125 mg/dL Critically high 74-106 T [facility] Comment on above: Performed By: #### B MP #### [facility] [address] [address] [address] Juan Carlos Francis Potassium [Moles/Vol] 3.4 mmol/L Critically low 3.5-5.1 [facility] Comment on above: Performed By: #### B MP #### [facility] [address] [place] [address] Dr. Juan Carlos Francis Sodium [Moles/Vol] 133 mmol/L Critically low 136-145 [facility] Comment on above: Performed By: #### B MP #### [facility] [address] [address] [address] Juan Carlos Francis Urea nitrogen [Mass/Vol] 27.0 mg/dL Critically high 7.0-18.0 [facility] Comment on above: Performed By: #### B MP #### [facility] [address] [address] [address] Juan Carlos Francis Urea nitrogen/Creatinine [Mass ratio] 17.2 mg/mg Normal [facility] Comment on above: Performed By: #### B MP #### [facility] [address] [address] [address] Juan Carlos Francis POINT OF CARE GLUCOSEon 07-0 Glucose [Mass/Vol] 115 mg/dL Critically high 74-106 T he [facility] Comment on above: Performed By: #### P OCGLUC ####[facility] [address] [id number]. Juan Carlos Francis Covid-19 PCR (CVDTBH)on 08-24 SARS-CoV-2 (COVID-19) RNA JOSE M+probe Ql (Unsp spec) Not detected Normal NOT DETECTED [facility] Comment on above: Result Comment: This test is not yet approved or cleared by the [place] FDA. When there are no FDA-approved or cleared tests available, and other criteria are met, FDA can make tests available under an emergency access mechanism called an Emergency Use Authorization (EUA). The EUA for this test is supported by the [place] of Health and Human Service's (HHS's) declaration [...] consistent with SARS-CoV-2. Performed By: #### C VDTBH #### [facility] [id number] Juan Carlos Francis PROF CHEM 8 (BAS METB)on Anion gap [Moles/Vol] 13.1 mmol/L Normal [facility] Comment on above: Performed By: #### B MP ####[facility] [address] [id number]. Juan Carlos Francis Calcium [Mass/Vol] 9.4 mg/dL Normal 8.5-10.1 [facility] Comment on above: Performed By: #### B MP ####[facility] [address] [id number] Francis Chloride [Moles/Vol] 99 mmol/L Normal 98-107 [facility] Comment on above: Performed By: #### B MP ####[facility] [address] [address]Dr. Juan Carlos Tito CO2 [Moles/Vol] 30.5 mmol/L Normal 21.0-32.0 [facility] Comment on above: Performed By: #### B MP ####[facility] [address] [place], [place] [address]Dr. Siennagualberto Tito Creatinine [Mass/Vol] 1.12 mg/dL Normal 0.70-1.30 [facility] Comment on above: Performed By: #### B MP ####[facility] [address] [place], [place] [address]Dr. Siennagualberto Tito EGFR-AF IVORIAN >60 Normal >=60 [facility] Comment on above: Performed By: #### B MP ####[facility] [address] [place], [place] [address]Dr. Siennagualberto Tito EGFR-NON AF IVORIAN >60 Normal >=60 [facility] Comment on above: Performed By: #### B MP ####[facility] [address] [place], [place] [address]Dr. Juan Carlos Francis Glucose [Mass/Vol] 124 mg/dL Critically high 74-106 [facility] Comment on above: Performed By: #### B MP ####[facility] [address] [place], [place] [address]Dr. Juan Carlos Francis Potassium [Moles/Vol] 3.6 mmol/L Normal 3.5-5.1 [facility] Comment on above: Performed By: #### B MP ####[facility] [address] [place], [place] [address]Dr. Juan Carlos Francis Sodium [Moles/Vol] 139 mmol/L Normal 136-145 [facility] Comment on above: Performed By: #### B MP ####[facility] [address] [place], [place] [address]Dr. Juan Carlos Francis Urea nitrogen [Mass/Vol] 7.0 mg/dL Normal 7.0-18.0 [facility] Comment on above: Performed By: #### B MP ####[facility] [address] [place], [place] [address]Wn. Juan Carlos Francis Urea nitrogen/Creatinine [Mass ratio] 6.2 mg/mg Normal [facility] Comment on above: Performed By: #### B MP ####[facility] [address] [place], [place] [address]Yy. Juan Carlos Francis CT ANKLE RT WO [...] by: MANUELITO MONTOYA Date: 2021-09-05 21:41 Normal [facility] XR ankle RT min 3V*on 2021 XR ankle RT min 3V* [facility] [place] [address] XRay Report Signed Patient: Raza Dooley MR#: [id number] 13 : 1975 Acct:[id number] Age/Sex: 46 / M ADM Date: 09/05/21 Loc: [facility] Room: Type: [facility] Attending Dr: Anuel Albert DPM, MS Copies to: Anuel Albert DPM, MS Ordering Provider: Anuel Albert DPM, MS Date of Service: 09/05/21 XR/XR ankle RT min 3V*: M25.571 ([id number]) XR/XR foot RT min 3V*: M25.751 XR [...] Reji Machado M.D.09/05/2021 2:01 PM Dictation Location: [place] [address] Transcribed By: [facility] 09/05/21 1401 Dictated By: Reji Machado II, MD 09/05/21 1357 Signed By: 09/05/21 1401 [facility] XR Ankle Complete Righton XR Ankle Complete [...] signed by Nela Nunez on 08/28/2021 0815 [facility] 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 Encounters Encounter Date Encounter Type Care Provider Facility Start: 06-28-2023 End: 06-29-2023 [facility] Start: 06-28-2023 End: 06-28-2023 Subsequent hospital visit by physician Keerthi Monsalve PT [facility] Comment on above: Arrived Start: 06-26-2023 End: 06-27-2023 [facility] Start: 06-24-2023 End: 06-25-2023 [facility] Start: 06-21-2023 End: 06-22-2023 [facility] Start: 06-19-2023 End: 06-20-2023 [facility] Start: 06-19-2023 End: 06-19-2023 Subsequent hospital visit by physician Zach Mock PTA [facility] Comment on above: Arrived Start: 06-18-2023 End: 06-19-2023 [facility] Start: 06-14-2023 End: 06-14-2023 Subsequent hospital visit by physician Keerthi Monsalve PT [facility] Start: 06-12-2023 End: 06-13-2023 [facility] Start: 06-11-2023 End: 06-12-2023 [facility] Start: 06-07-2023 End: 06-08-2023 [facility] Start: 06-07-2023 End: 06-07-2023 Subsequent hospital visit by physician Keerthi Monsalve PT [facility] Comment on above: Arrived Start: 06-05-2023 End: 06-06-2023 [facility] Start: 06-04-2023 End: 06-05-2023 [facility] Start: 05-31-2023 End: 06-01-2023 [facility] Start: 05-29-2023 End: 05-30-2023 [facility] Start: 05-27-2023 End: 05-27-2023 Subsequent hospital visit by physician Dena Berkowitz [facility] Start: 05-24-2023 End: 05-25-2023 ambulatory NEIL LEONEN [facility] Start: 08-27-2022 ambulatory ANUEL ALBERT Faci lity:H1 Start: 08-13-2022 ambulatory ANUEL ALBERT Faci lity:H1 Start: 07-09-2022 End: 07-10-2022 ambulatory ANUEL ALBERT Facility:H1 Start: 06-20-2022 End: 06-21-2022 ambulatory ANUEL ALBERT Facility:H1 Start: 03-12-2022 End: 03-13-[address] DOCTOR SADLER Facility:H1 Start: 02-05-2022 End: 02-05-2022 Subsequent hospital visit by physician Peter Valentine [facility] Comment on above: Arrived Start: 02-02-2022 End: 02-02-2022 Subsequent hospital visit by physician Peter Valentine [facility] Comment on above: Arrived Start: 01-31-2022 End: 01-31-2022 Subsequent hospital visit by physician Peter Valentine [facility] Comment on above: Arrived Start: 01-29-2022 End: 01-29-2022 Subsequent hospital visit by physician Keerthi Monsalve PT [facility] Start: 01-26-2022 End: 01-26-2022 Subsequent hospital visit by physician Dena Berkowitz [facility] Start: 01-25-2022 End: 01-25-2022 Subsequent hospital visit by physician Peter Valentine [facility] Start: 01-24-2022 End: 01-25-2022 ambulatory ANUEL ALBERT Facility:H1 Start: 01-22-2022 End: 01-22-2022 Subsequent hospital visit by physician Dena Berkowitz [facility] Comment on above: Arrived Start: 12-29-2021 End: 12-30-2021 ambulatory ANUEL ALBERT Facility:H1 Start: 12-08-2021 End: 12-09-2021 ambulatory ANUEL ALBERT Facility:H1 Start: 11-24-2021 End: 11-25-2021 ambulatory ANUEL ALBERT Facility:H1 Start: 11-20-2021 End: 11-21-[address] DOCTOR SADLER Facility:H1 Start: 10-17-2021 End: 10-18-2021 ambulatory NEIL HANNA Facility:H1 Start: 09-27-2021 Encounter for preprocedural cardiovascular examination ANUEL ALBERT [facility] Start: 09-27-2021 Encounter for preprocedural laboratory examination ANUEL ALBERT [facility] Start: 09-26-2021 End: 09-27-2021 ambulatory ANUEL ALBERT Facility:H1 Start: 09-19-2021 End: 09-20-2021 ambulatory ANUEL ALBERT Facility:H1 Start: 09-19-2021 End: 09-20-2021 Encounter for preprocedural cardiovascular examination ANUEL ALBERT Facility:H1 Start: 09-05-2021 End: 09-06-2021 ambulatory [facility] Lamine [facility] Facility:H1 Start: 09-05-2021 End: 09-05-2021 Patient encounter procedure PHYSICIAN NO FAMILY [facility] Procedures Date Procedure Procedure Detail Performing Clinician Start: 09-05-2021 X-ray of right ankle PH YSICIAN NO FAMILY Start: 09-05-2021 X-ray of right foot PHY SICIAN NO FAMILY Plan of Treatment Date Care Activity Detail Author Start: 12-25-2023 Depression Screen Depression Screen [facility] Start: 10-24-2023 Influenza vaccination Flu vacc ine (Season Ended) [facility] Start: 06-28-2023 End: 06-28-2023 Patient encounter procedure 06/28/2023 7:30 AM EDT Appointment [facility] [address] [place] [address] Keerthi Monsalve, PT WC-14 of 18 visits valid until 06/28/2023-RT Ankle-Fatuma Hanna/ Anuel Albert [facility] Comment on above: WC-14 of 18 visits v alid until 06/28/2023-RT Ankle-Fatuma Hanna/ Anuel Albert Start: 06-26-2023 End: 06-26-2023 Patient encounter procedure 06/26/2023 8:00 AM EDT Appointment [facility] [address] [place] [address] Keerthi Monsalve, PT WC-13 of 18 visits valid until 06/28/2023-RT Ankle-Fatuma Decker/ Peter Highlander [facility] Comment on above: WC-13 of 18 visits v alid until 06/28/2023-RT Ankle-Fatuma Jacques/ Peter Highlander Start: 06-24-2023 End: 06-24-2023 Patient encounter procedure 06/24/2023 8:15 AM EDT Appointment [facility] [address] [place] [address] Peter Valentine WC-12 of 18 visits valid until 06/28/2023-RT Ankle-Fatuma Decker/ Peter Highlander [facility] Comment on above: WC-12 of 18 visits v alid until 06/28/2023-RT Ankle-Fatuma Jacques/ Peter Highlander Start: 06-21-2023 End: 06-21-2023 Patient encounter procedure 06/21/2023 7:30 AM EDT Appointment [facility] [address] [place] [address] Keerthi Monsalve, PT WC-11 of 18 visits valid until 06/28/2023-RT Ankle-Fatuma Jacques/ Peter Highlander [facility] Comment on above: WC-11 of 18 visits v alid until 06/28/2023-RT Ankle-Fatuma Jacques/ Peter Highlander Start: 06-19-2023 End: 06-19-2023 Patient encounter procedure 06/19/2023 8:00 AM EDT Appointment [facility] [address] [place] [address] Zach Mock PTA WC-10 of 18 visits valid until 06/28/2023-RT Ankle-Fatuma Decker/ Peter Highlander [facility] Comment on above: WC-10 of 18 visits v alid until 06/28/2023-RT Ankle-Fatuma Decker/ Peter Highlander Start: 06-18-2023 Subsequent hospital visit by physician 06/18/2023 8:00 AM EDT Hospital Encounter [facility] [address] [place] [address] Zach Mock PTA [facility] Start: 06-14-2023 End: 06-14-2023 Patient encounter procedure 06/14/2023 8:45 AM EDT Appointment [facility] [address] [place] [address] Keerthi Monsalve, PT WC-9 of 18 visits valid until 06/28/2023-RT Ankle-Fatuma Jacques/ Peter Highlander [facility] Comment on above: WC-9 of 18 visits va lid until 06/28/2023-RT Ankle-Fatuma Decker/ Peter Highlander Start: 06-12-2023 End: 06-12-2023 Patient encounter procedure 06/12/2023 8:00 AM EDT Appointment [facility] [address] [place] [address] Zach Mock, INTERNATIONAL TRADE TEACHER WC-8 of 18 visits valid until 06/28/2023-RT Ankle-Fatuma Jacques/ Peter Highlander [facility] Comment on above: WC-8 of 18 visits va lid until 06/28/2023-RT Ankle-Fatuma Decker/ Peter Highlander Start: 06-11-2023 End: 06-11-2023 Patient encounter procedure 06/11/2023 8:00 AM EDT Appointment [facility] [address] [place] [address] Zach Mock, INTERNATIONAL TRADE TEACHER WC-7 of 18 visits valid until 06/28/2023-RT Ankle-Fatuma Decker/ Peter Highlander [facility] Comment on above: WC-7 of 18 visits va lid until 06/28/2023-RT Ankle-Fatuma Jacques/ Peter Highlander Start: 06-07-2023 End: 06-07-2023 Patient encounter procedure 06/07/2023 7:30 AM EDT Appointment [facility] [address] [place] [address] Keerthi Monsalve, PT WC-6 of 18 visits valid until 06/28/2023-RT Ankle-Fatuma Decker/ Peter Highlander [facility] Comment on above: WC-6 of 18 visits va lid until 06/28/2023-RT Ankle-Fatuma Decker/ Peter Highlander Start: 06-05-2023 End: 06-05-2023 Patient encounter procedure 06/05/2023 8:00 AM EDT Appointment [facility] [address] [place] [address] Zach Mock, INTERNATIONAL TRADE TEACHER WC-5 of 18 visits valid until 06/28/2023-RT Ankle-Fatuma Jacques/ Peter Bety [facility] Comment on above: WC-5 of 18 visits va lid until 06/28/2023-RT Ankle-Fatuma Decker/ Peter Bety Start: 06-04-2023 End: 06-04-2023 Patient encounter procedure 06/04/2023 8:00 AM EDT Appointment [facility] [address] [place] [address] Zach Mock PTA WC-4 of 18 visits valid until 06/28/2023-RT Ankle-Fatuma Jacques/ Peter Gustavoander [facility] Comment on above: WC-4 of 18 visits va lid until 06/28/2023-RT Ankle-Fatuma Jacques/ Peter Bety Start: 05-31-2023 End: 05-31-2023 Patient encounter procedure 05/31/2023 7:30 AM EST Appointment [facility] [address] [place] [address] Dena Berkowitz WC-3 of 18 visits valid until 06/28/2023-RT Ankle-Fatuma Jacques/ Peter Bety [facility] Comment on above: WC-3 of 18 visits va lid until 06/28/2023-RT Ankle-Fatuma Jacques/ Peter Bety Start: 12-26-2022 Influenza vaccination Flu vaccine (# 1) [facility] Comment on above: Postponed from 10/23 (Patient Refused) Start: 12-24-2022 End: 12-24-2022 Patient encounter procedure 12/24/2022 Office Visit Family Medicine Rodrigue Harper MD [address] [place] [address] [facility] Start: 10-23-2022 Influenza vaccination Flu vaccine (# 1) [facility] Highlighter [facility] Start: 07-03-2022 Depression Screen [facility] Start: 02-21-2022 End: 02-21-2022 Patient encounter procedure 02/21/2022 Appointment Physical Therapy Keerthi Monsalve, PT [facility] Start: 02-19-2022 End: 02-19-2022 Patient encounter procedure 02/19/2022 Appointment Physical Peter Gordon [facility] Start: 02-16-2022 End: 02-16-2022 Patient encounter procedure 02/16/2022 Appointment Physical Therapy Keerthi Monsalve, PT [facility] Start: 02-14-2022 End: 02-14-2022 Patient encounter procedure 02/14/2022 Appointment Physical Therapy Keerthi Monsalve, PT [facility] Start: 02-12-2022 End: 02-12-2022 Patient encounter procedure 02/12/2022 Appointment Physical Peter Gordon [facility] Start: 02-07-2022 End: 02-07-2022 Patient encounter procedure 02/07/2022 Appointment Physical Peter Gordon [facility] Start: 02-05-2022 End: 02-05-2022 Patient encounter procedure 02/05/2022 Appointment Physical Peter Gordon [facility] Start: 02-02-2022 End: 02-02-2022 Patient encounter procedure 02/02/2022 Appointment Physical Peter Gordon [facility] Start: 01-31-2022 End: 01-31-2022 Patient encounter procedure 01/31/2022 Appointment Physical Peter Gordon [facility] Start: 01-29-2022 End: 01-29-2022 Patient encounter procedure 01/29/2022 Appointment Physical Therapy Keerthi Monsalve, PT [facility] Start: 01-26-2022 Subsequent hospital visit by physician 01/26/2022 Hospital Encounter Physical Therapy Dena Berkowitz [facility] Start: 01-25-2022 End: 01-25-2022 Patient encounter procedure 01/25/2022 Appointment Physical Therapy Peter Valentine [facility] Start: 06-03-2019 Screening for malign ant neoplasm of colon [facility] Start: 2014 Lipid panel Lipids [facility] Start: 2009 Diabetes screen Diabetes screen [facility] Start: 1993 DTaP/Tdap/Td vaccine (1 - Tdap) DTaP/Tdap/Td vaccine (1 - Tdap) [facility] Start: 1992 Hepatitis C screening Hepatitis C sc reen [facility] Start: 1989 HIV screening HIV screen [facility] Start: 1974 COVID-19 Vaccine (#1) COVID-19 Vacci ne (#1) [facility] Start: 1974 Hepatitis B vaccine (1 of 3 - 3-dose series) Hepatitis B vaccine (1 of 3 - 3-dose series) [facility] Payers Date Payer Category Payer Unknown [id number] 2021 Unknown 2021 [id number] .[id number] 1974 Unknown [id number] 2.16.840.1.528773.3.579.2.593 1974 Unknown [id number] 2.16.840.1.086901.3.579.2.593 1974 Unknown [id number] 2.16.840.1.210790.3.579.2.593 1974 Unknown [id number] 2.16.840.1.804067.3.579.2.593 1974 Unknown [id number] 2.16.840.1.087728.3.579.2.593 1974 Unknown [id number] 2.16.840.1.238554.3.579.2.593 1974 Unknown [id number] 2.16.840.1.569131.3.579.2.593 1974 Unknown [id number] 2.16.840.1.356757.3.579.2.593 1974 Unknown [id number] 2.16.840.1.949184.3.579.2.593 1974 Unknown [id number] 2.16.840.1.113417.3.579.2.593 1974 Unknown [id number] 2.16.840.1.560310.3.579.2.593 1974 Unknown [id number] 2.16.840.1.673130.3.579.2.593 1974 Unknown [id number] 2.16.840.1.273763.3.579.2.593 1974 Unknown [id number] 2.16.840.1.266679.3.579.2.593 1974 Unknown [id number] 2.16.840.1.543169.3.579.2.593 1974 Unknown [id number] 2.16.840.1.911450.3.579.2.174 1974 Unknown [id number] 2.16.840.1.670794.3.579.2.174 1974 Unknown [id number] 2.16.840.1.403695.3.579.2.174 1974 Unknown [id number] 2.16.840.1.345144.3.579.2.174 1974 Unknown [id number] 2.16.840.1.672624.3.579.2.174 1974 Unknown [id number] 2.16.840.1.452664.3.579.2.174 1974 Unknown [id number] 2.16.840.1.406631.3.579.2.174 1974 Unknown [id number] 2.16.840.1.014278.3.579.2.174 1974 Unknown [id number] 2.16.840.1.009139.3.579.2.174 1974 Unknown [id number] 2.16.840.1.721075.3.579.2.174 1974 Unknown [id number] 2.16.840.1.228086.3.579.2.174 1974 Unknown [id number] 2.16.840.1.547177.3.579.2.174 1974 Unknown [id number] 2.16.840.1.945598.3.579.2.174 1974 Unknown [id number] 2.16.840.1.053751.3.579.2.174 1959 Worker's Compensation [id number] Worker's Compensation Self-pay Self Pay [id number] Worker's Compensation Care Works [facility] [id number] Social History Date Type Detail Facility Start: 03-25-1989 End: 03-25-2018 Tobacco smoking status VAIS Smoker (finding) [facility] Start: 1975 Sex Assigned At Male F [facility] Start: 12-26-2021 Tobacco smoking stat us VAIS Ex-smoker [employer] Start: 03-25-1989 End: 03-25-2018 History of tobacco use Cigarette Smoker [employer] Phone: Start: 12-26-2021 End: 12-24-2022 Cigarettes smoked current (pack per day) - Reported 0.5 [employer] Phone: Start: 12-26-2021 Tobacco use and exposure User of smokeless tobacco [employer] Phone: History of tobacco use Chews Tobacco [employer] Phone: Start: 12-26-2021 End: 12-24-2022 Alcohol intake Current non-drinker of alcohol (finding) [employer] Phone: Start: 07-03-2021 History SDOH Financial 5 [employer] Phone: Start: 07-03-2021 History SDOH Food Worry 1 [employer] Work Phone: Start: 05-16-2020 History SDOH Transpo rt Med 2 [employer] Work Phone: Start: 05-16-2020 Education 13 [employer] Work Phone: Start: 1975 Sex Assigned At Not on file B ON [employer] Work Phone: Start: 12-24-2022 Tobacco use panel [place] How hard is it for y ou to pay for the very basics like food, housing, medical care, and heating Not hard at all [employer] (I/We) worried wheth er (my/our) food would run out before (I/we) got money to buy more. Never true [employer] At any time in the p ast 12 months, were you homeless or living in custodial [including now]? No [employer] Clinical Notes 09-27-2021 to 06-28-2023 Keerthi Monsalve, PT - 06/28/2023 7:30 AM EDKeerthi Lyman, PT - 06/28/2023 7:30 AM EDTZach Mock INTERNATIONAL TRADE TEACHER - 06/19/2023 8:00 AM EDPeter Adhikari - 06/14/2023 8:45 AM EDT Note Date & Type Note Facility 06-28-2023 History of Present illness Narrative Images from the original note were not included. [facility] Daily Note Date: 06/28/2023 Patient Name: Raza Dooley : 1975 (48 y.o.) Referring Provider (secondary): PO Saenz / Dr. Albert Diagnosis: S/P STJ fusion; calcaneus fractures Treatment Diagnosis: R foot pain Onset Date: 02/19/24 (Surgery date) PT Insurance Information: [facility] Total # of Visits Approved: 18 Per Physician Order Total # of Visits to Date: 14 Canceled Appointment: 2 Plan of Care/Certification Expiration Date: 06/28/23 ([facility] expiration) Pre-Treatment Pain: 2/10 Assessment Assessment: Pain 2/10 R foot/ heel this morning; but pain increases to 4-5/10 by evening Completed therex and manual therapy per Doc flow. PROM R ankle DF 15 degrees, PF 40 degrees. Strength R ankle DF 5/5, PF 4-/5. Unable to complete single heel raise. Ankle inversion/ eversion minimal ROM due to fusion. Patient able to hold single leg stance balance x20 sec on R LE/ WFL. Patient continues to walk with mild limp. LEFS score 53/80.Discharge. Plan Discharge Exercises/Modalities/Manual: See DocFlow Sheet Education: On continuation of HEP Goals (Total # of Visits to Date: 14) Short Term Goals Time Frame for Short Term Goals: 9 Short Term Goal 1: patient to be educated on and independent with HEP - MET Short Term Goal 2: Increase strength R ankle PF 4+/5 with able to complete 25 S/L heel raises within availabe ROM - NOT MET Short Term Goal 3: Improve stability/ balance with R single leg stance balance x20 sec 2 of 4 trials - MET Usp Goals Time Frame for Rubber Trimmer Goals : 18 Rubber Trimmer Goal 1: Improved gait pattern heel to toe WFL-Not Met Rubber Trimmer Goal 2: Improve functional mobility with LEFS score >55/80 (from 47/80)- Partially met Rubber Trimmer Goal 3: Decrease pain R foot 2/10 at worst x3 days- Not Met Post Treatment Pain: 2/10 Time In: 7:30 Time Out : 8:05 Timed Code Treatment Minutes: 35 Minutes Total Treatment Time: 35 Minutes Keerthi Monsalve, PT Date: 06/28/2023 documented in this encounter [facility] 06-28-2023 Hospital course Narrative Images from the original note were not included. [facility] Discharge Summary Patient: Raza Dooley : 1975 Referring Provider (secondary): PO Saenz / Dr. Albert Diagnosis: S/P STJ fusion; calcaneus fractures Date Treatment Initiated: 05/24/23 Date of Last Treatment: 06/28/23 PT Visit Information Onset Date: 02/19/24 (Surgery date) PT Insurance Information: [facility] Total # of Visits Approved: 18 Total # of Visits to Date: 14 Plan of Care/Certification Expiration Date: 06/28/23 ([facility] expiration) Canceled Appointment: 2 Frequency/Duration Days: 3 times per week Weeks: 6 weeks Treatment Received Patient Education/HEP, Therapeutic Exercise, gait training, neuro re-ed, and Manual Therapy Assessment: Pain Level: 2 Pain 2/10 R foot/ heel this morning; but pain increases to 4-5/10 by evening. PROM R ankle DF 15 degrees, PF 40 degrees. Strength R ankle DF 5/5, PF 4-/5. Unable to complete single heel raise. Ankle inversion/ eversion minimal ROM due to fusion. Patient able to hold single leg stance balance x20 sec on R LE/ WFL. Patient continues to walk with mild limp. LEFS score 53/80.Discharge. Goals Short Term Goals Time Frame for Short Term Goals: 9 Short Term Goal 1: patient to be educated on and independent with HEP - MET Short Term Goal 2: Increase strength R ankle PF 4+/5 with able to complete 25 S/L heel raises within availabe ROM - NOT MET Short Term Goal 3: Improve stability/ balance with R single leg stance balance x20 sec 2 of 4 trials - MET Rubber Trimmer Goals Time Frame for Usp Goals : 18 Usp Goal 1: Improved gait pattern heel to toe WFL-Not Met Usp Goal 2: Improve functional mobility with LEFS score >55/80 (from 47/80)- Partially met Rubber Trimmer Goal 3: Decrease pain R foot 2/10 at worst x3 days- Not Met Reason for Discharge Completion of Prescribed visits and Optimal Function Achieved Comments: Thank you for this referral Keerthi Monsalve, PT Date: 06/28/2023 documented in this encounter [facility] 06-19-2023 History of Present illness Narrative Images from the original note were not included. [facility] Daily Note Date: 06/19/2023 Patient Name: Raza Dooley : 1975 (48 y.o.) Referring Provider (secondary): PO Saenz / Dr. Albert Diagnosis: S/P STJ fusion; calcaneus fractures Treatment Diagnosis: R foot pain Onset Date: 02/19/24 (Surgery date) PT Insurance Information: [facility] Total # of Visits Approved: 18 Per Physician Order Total # of Visits to Date: 10 Canceled Appointment: 2 Plan of Care/Certification Expiration Date: 06/28/23 ([facility] expiration) Pre-Treatment Pain: 1/10 Assessment Assessment: Patient states foot pain is a 1/10 this morning, but notes yesterday afternoon pain increased to a 6/10 in his R heel. Continued with LE strengthening and ankle stability exercises per flowsheet followed by manual. Post session patient notes pain remains a 1/10. Plan Continue with current plan of care Exercises/Modalities/Manual: See DocFlow Sheet Education: HEP Goals (Total # of Visits to Date: 10) Short Term Goals Time Frame for Short Term Goals: 9 Short Term Goal 1: patient to be educated on and independent with HEP - MET Short Term Goal 2: Increase strength R ankle PF 4+/5 with able to complete 25 S/L heel raises within availabe ROM - NOT MET Short Term Goal 3: Improve stability/ balance with R single leg stance balance x20 sec 2 of 4 trials - MET Usp Goals Time Frame for Usp Goals : 18 Rubber Trimmer Goal 1: Improved gait pattern heel to toe WFL Rubber Trimmer Goal 2: Improve functional mobility with LEFS score >55/80 (from 47/80) Rubber Trimmer Goal 3: Decrease pain R foot 2/10 at worst x3 days Post Treatment Pain: 1/10 Time In: 0802 Time Out : 0844 Timed Code Treatment Minutes: 42 Minutes Total Treatment Time: 42 Minutes Ther Ex: [id number] Manual: [id number] Zach Mock PTA Date: 06/19/2023 documented in this encounter [facility] 06-14-2023 History of Present illness Narrative Occupational Therapy [facility] Date: 06/14/2023 Patient Name: Raza Dooley : 1975 Pt Cancelled Appt due to no reason for cancel Peter Hough Kenny Date: 06/14/2023 documented in this encounter [facility] 06-07-2023 History of Present illness Narrative Images from the original note were not included. [facility] Daily Note Date: 06/07/2023 Patient Name: Raza Dooley : 1975 (48 y.o.) Referring Provider (secondary): PO Saenz / Dr. Albetr Diagnosis: S/P STJ fusion; calcaneus fractures Treatment Diagnosis: R foot pain Onset Date: 02/19/24 (Surgery date) PT Insurance Information: [facility] Total # of Visits Approved: 18 Per Physician Order Total # of Visits to Date: 6 Canceled Appointment: 1 Plan of Care/Certification Expiration Date: 06/28/23 ([facility] expiration) Pre-Treatment Pain: 2/10 Assessment Assessment: PAIN 2/10 R FOOT THIS MORNING; BY END OF DAY PAIN INCREASES TO 5-6/10. LONGER ON FEET, THE MORE PAIN. PATIENT HAD CTSCAN AND SEE DR next week. Completed therex and manual therapy per Doc flow. patient reports complianceto HEP. SLS balance R LE 20 sec. Unable to complete a S/l heel raise on R LE. Plan Continue with current plan of care Exercises/Modalities/Manual: See DocFlow Sheet Education: On ex form Goals (Total # of Visits to Date: 6) Short Term Goals Time Frame for Short Term Goals: 9 Short Term Goal 1: patient to be educated on and independent with HEP-Met Short Term Goal 2: Increase strength R ankle PF 4+/5 with able to complete 25 S/L heel raises within availabe ROM Short Term Goal 3: Improve stability/ balance with R single leg stance balance x20 sec 2 of 4 trials-Met Rubber Trimmer Goals Time Frame for Usp Goals : 18 Usp Goal 1: Improved gait pattern heel to toe WFL Rubber Trimmer Goal 2: Improve functional mobility with LEFS score >55/80 (from 47/80) Rubber Trimmer Goal 3: Decrease pain R foot 2/10 at worst x3 days Post Treatment Pain: 2/10 Time In: 7;30 Time Out : 8:10 Timed Code Treatment Minutes: 40 Minutes Total Treatment Time: 40 Minutes Keerthi Monsalve PT Date: 06/07/2023 documented in this encounter [facility] 06-21-2022 Note PROCEDURE: XR FOOT R T [...] from the original note were not included. [facility] Daily Note Date: 02/05/2022 Patient Name: Raza Dooley ACCT#: : 1975 (46 y.o.) Referring Provider (secondary): Dr. Anuel Albert Diagnosis: R ankle pain, fractures R calcaneus Treatment Diagnosis: Right ankle pain Onset Date: 08/26/21 PT Insurance Information: [facility] Total # of Visits Approved: 18 [...] walk with heel to toe gait pattern-met Usp Goals Time Frame for Usp Goals : 18 Usp Goal 1: Improve functional activities with LEFS score >65/80 Usp Goal 2: Patient to hold SLS R Le x10 sec forgood dynamic stability Post Treatment Pain: 04/03 Time In: 0730 Time Out : 0812 Timed Code Treatment Minutes: 42 Minutes Total Treatment Time: 42 Minutes Peter Valentine INTERNATIONAL TRADE TEACHER Date: 02/05/2022 documented in this encounter [place] [facility] Phone: 02-02-2022 History of Present illness Narrative Images from the original note were not included. [facility] Daily Note Date: 02/02/2022 Patient Name: Raza Dooley : 1975 (46 y.o.) Referring Provider (secondary): Dr. Anuel Albert Diagnosis: R ankle pain, fractures R calcaneus Treatment Diagnosis: Right ankle pain Onset Date: 08/26/21 PT Insurance Information: [facility] Total # of Visits Approved: 18 [...] walk with heel to toe gait pattern-met Usp Goals Time Frame for Rubber Trimmer Goals : 18 Usp Goal 1: Improve functional activities with LEFS score >65/80 Rubber Trimmer Goal 2: Patient to hold SLS R Le x10 sec forgood dynamic stability Post Treatment Pain: 05/04 Time In: 0730 Time Out : 0805 Timed and total 35 min Peter Valentine INTERNATIONAL TRADE TEACHER Date: 02/02/2022 documented in this encounter [facility] Phone: 01-31-2022 History of Present illness Narrative Images from the original note were not included. [facility] Daily Note Date: 01/31/2022 Patient Name: Raza Dooley ACCT#: : 1975 (46 y.o.) Referring Provider (secondary): Dr. Anuel Albert Diagnosis: R ankle pain, fractures R calcaneus Treatment Diagnosis: Right ankle pain Onset Date: 08/26/21 PT Insurance Information: [facility] Total # of Visits Approved: 18 [...] walk with heel to toe gait pattern-met Usp Goals Time Frame for Usp Goals : 18 Rubber Trimmer Goal 1: Improve functional activities with LEFS score >65/80 Usp Goal 2: Patient to hold SLS R Le x10 sec forgood dynamic stability Post Treatment Pain: 0/10 Time In: 0730 Time Out : 0805 Timed and total 35 min Peter Valentine INTERNATIONAL TRADE TEACHER Date: 01/31/2022 documented in this encounter [employer] Phone: 01-29-2022 History of Present illness Narrative [facility] Date: 01/29/2022 Patient Name: Raza Dooley : 1975 Pt Cancelled Appt due to no reason for cancel. Peter Cox Date: 01/29/2022 documented in this encounter [employer] Phone: 01-26-2022 History of Present illness Narrative Physical Therapy [facility] Date: 01/26/2022 Patient Name: Raza Dooley : 1975 Patient is not feeling well. Will return on the next appointment. Idania Holland Date: 01/26/2022 documented in this encounter [facility] Phone: 01-25-2022 History of Present illness Narrative Images from the original note were not included. [facility] Daily Note Date: 01/25/2022 Patient Name: Raza Dooley ACCT#: : 1975 (46 y.o.) Referring Provider (secondary): Dr. Anuel Albert Diagnosis: R ankle pain, fractures R calcaneus Treatment Diagnosis: Right ankle pain Onset Date: 08/26/21 PT Insurance Information: [facility] Total # of Visits Approved: 18 [...] walk with heel to toe gait pattern Rubber Trimmer Goals Time Frame for Rubber Trimmer Goals : 18 Rubber Trimmer Goal 1: Improve functional activities with LEFS score >65/80 Usp Goal 2: Patient to hold SLS R Le x10 sec forgood dynamic stability Post Treatment Pain: 04/03 Time In: 0730 Time Out : 0812 Timed Code Treatment Minutes: 42 Minutes Total Treatment Time: 42 Minutes Peter Lamine Kauffmanxavierjeff 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 Physical Therapy [facility] Daily Note Date: 01/22/2022 Patient Name: Raza Dooley : 1975 (46 y.o.) Referring Provider (secondary): Dr. Anuel Albert Diagnosis: R ankle pain, fractures R calcaneus Treatment Diagnosis: Right ankle pain Onset Date: 08/26/21 PT Insurance Information: [facility] Total # of Visits Approved: 18 [...] walk with heel to toe gait pattern Usp Goals Time Frame for Usp Goals : 18 Rubber Trimmer Goal 1: Improve functional activities with LEFS score >65/80 Usp Goal 2: Patient to hold SLS R Le x10 sec forgood dynamic stability Post Treatment Pain: 0/10 Time In: 1023 Time Out : 1102 Timed Code Treatment Minutes: 39 Minutes Total Treatment Time:39 Minutes Dena Berkowitz ,ELSA Date: 01/22/2022 documented in this encounter [facility] Phone: 12-08-2021 Note PROCEDURE: XR FOOT R [...] authenticated by: MANUELITO LARA Date: 2021-11-20 11:36 [facility] 10-18-2021 Note PROCEDURE: XR FOOT R T [...] authenticated by: NIRMAL LYONS Date: 2021-10-18 07:52 [facility] 09-27-2021 Note PROCEDURE: XR FOOT [...] by: NIRMAL LYONS Date: 2021-09-27 10:56 [facility] Evaluation note No assessment inform ation available [facility] Work Phone: Summary Purpose Family History [...] section and content) DATE CREATED AUTHOR 08/28/2021 [facility] dical Specialist DATE CREATED AUTHOR AUTHOR'S ORGANIZ ATION 10/24/2021 [facility] DATE CREATED AUTHOR AUTHOR'S ORGANIZ ATION 07/12/2022 [facility] DATE CREATED AUTHOR AUTHOR'S ORGANIZ ATION 06/29/2023 [facility] Teams (unrecognized sec tion and content) Team Status: Inactive Member Role Status Dates PHYSICIAN NO FAMILY Primary Care Provider Active Anuel Albert DPM MS Attending Provider Active Team Status: Active Member Role Status Dates PHYSICIAN NO FAMILY Primary Care Provider Active Terminal Operator Relationship Specialty Start Date End Date Rodrigue Harper MD [address] [place] [address] PCP - General Internal Medicine 05/16/20 Terminal Operator Relationship Specialty Start Date End Date Rodrigue Harper MD [address] [place], [place] [id number] PCP - General Internal Medicine 05/16/20 Terminal Operator Relationship Specialty Start Date End Date Rodrigue Harper MD [address] [place], [place] [id number] PCP - General Internal Medicine 05/16/20 Terminal Operator Relationship Specialty Start Date End Date Rodrigue Harper MD [address] [place], [place] [id number] PCP - General Internal Medicine 05/16/20 Terminal Operator Relationship Specialty Start Date End Date Rodrigue Harper MD [address] [place], [place] [id number] PCP - General Internal Medicine 05/16/20 Terminal Operator Relationship Specialty Start Date End Date Rodrigue Harper MD [address] [place], [place] [phone] PCP - General Internal Medicine 05/16/20 Terminal Operator Relationship Specialty Start Date End Date Rodrigue Harper MD [address] [place], [place] [phone] PCP - General Internal Medicine 05/16/20 Terminal Operator Relationship Specialty Start Date End Date Rodrigue Harper MD [address] [place], [place] [id number] PCP - General Internal Medicine 05/16/20 Terminal Operator Relationship Specialty Start Date End Date Rodrigue Harper MD [address] [place] [address] PCP - General Internal Medicine 05/16/20 Terminal Operator Relationship Specialty Start Date End Date Rodrigue Harper MD [address] [place] [address] PCP - General Internal Medicine 05/16/20 Goals [...] BE BASED ON THE PRIMARY CLINICAL RECORDS. [employer] provides no warranty or guarantee of the accuracy or completeness of information in this document.
== END 2023-12-18 09:07 | disposition home or self-care (01) ==
LOC: EC 09:07
PROVIDERS: Visit Provider Podiatrist Foot & Ankle Surgery
DX: S92.001D Unspecified fracture of right calcaneus, subsequent encounter for fracture with routine healing (principal); M79.671 Pain in right foot; M24.674 Ankylosis, right foot; Z98.890 Other specified postprocedural states
CPT/HCPCS: 73650

== ENCOUNTER 2024-03-11 13:04 | Outpatient (OUT) | payer SELFPAY ==
--- NOTE | 2024-03-11 13:07 | XR_ITS ---
[facility] [place] [id number] Patient Name: RAZA DOOLEY MRN: [id number] date: 1975 Sex: M Assigned Patient Location: [facility] Current Patient Location: Accession/Order Number: [id number] Exam Date: 03/11/2024 13:10 Report Date: 03/12/2024 06:14 At the request of: ANUEL HARDING Procedure: XR calcaneus RT min 2V PROCEDURE: XR calcaneus RT min 2V HISTORY: Closed Displaced Fracture Of Right Calcaneus COMPARISON: XR calcaneus right 12/18/2023 FINDINGS: BONES:Mechanical fusion of the hindfoot via 2 screws; no appreciable hardware fracture or loosening. Stable sclerosis of calcaneus suggestive of healed/healing fracture. SOFT TISSUES:No visible soft tissue swelling. EFFUSION:None visible. OTHER: Negative. XR/XR calcaneus RT min 2V IMPRESSION: 1. Stable surgical changes without evidence of hardware failure or change in alignment. Electronically authenticated by: RADHA GREENBERG Date: 03/12/2024 06:14
--- OUTSIDE RECORDS SUMMARY | 2024-03-11 13:25 | XMS_ITS | CCD ---
Author Organization [facility] Care Team Providers Care Dock Clerk Name Role Phone NO FAMILY, PHYSICIAN Primary Care Provider Sariva JEANNA Tariq Attending Provider [phone] Rodrigue Harper MD Primary Care Provider ANUEL [...] MISC, DR APPIAH Primary Care Unavailable NEIL SIU Admitting Unavailable NEIL SIU Attending Unavailable Nirmal Lyons Consulting Unavailable NEIL SIU Consulting Unavailable ANUEL ALBERT Admitting Unavailable WEST, DR MANUELITO Jones Consulting Unavailable MISC, DR APPIAH Primary Care Unavailable ANUEL ALBERT Attending Unavailable HIGHLANUEL SCHWARTZ Consulting Unavailable NEIL SIU Attending Unavailable Nirmal Lyons Consulting Unavailable JACQUES, NEIL Admitting Unavailable JACQUESFABYLY Consulting Unavailable MISC, DR APPIAH Primary Care Unavailable MISC, DR APPIAH Consulting Unavailable NEIL SIU Attending Unavailable JACQUES, NEIL Admitting Unavailable JACQUESNEIL Consulting Unavailable HIGHLANDER, ANUEL D Attending Unavailable MEHDI, ANUEL Raman Admitting Unavailable HIGHLDANIELE, ANUEL Raman Consulting Unavailable Manuelito Montoya Consulting Unavailable HIGHLANDER, ANUEL Raman Admitting Unavailable WEST, DR MANUELITO Jones Consulting Unavailable REQUEST, DR NICOL LISTED Primary Care Unavaila ble MEHDI, ANUEL Raman Attending Unavailable HIGHLANDER, ANUEL Raman Consulting Unavailable HIGHLANDER, ANUEL D Admitting Unavailable MISC, DR APPIAH Primary Care Unavailable WEST, DR MANUELITO Jones Consulting Unavailable HIGHLANDER, ANUEL Raman Attending Unavailable HIGHLANDER, ANUEL Raman Consulting Unavailable Ghazarian , [facility] Primary Care Provider FATUMA SIUBERLY Referring Unavailable GHAZARIAN, RODRIGUE Primary Care Unavailable JACQUES, NEIL Referring Unavailable GHAZARIAN, RODRIGUE Primary Care Unavailable JACQUES, NEIL Referring Unavailable GHAZARIAN, RODRIGUE Primary Care Unavailable JACQUES, NEIL Referring Unavailable GHAZARIAN, RODRIGUE Primary Care Unavailable HIGHLANDER, ANUEL Raman Referring Unavailable GHAZARIAN, RODRIGUE Primary Care Unavailable [...] Facility (13 sources) Penicillins Allergy to substance 11-13-2012 [facility] (1 source) Penicillin Drug Allergy [facility] Repository Medications Current Medications Medication [...] 05-16-2020 05-16-2020 Chronic Fracture of lower limb (15 sources) Unspecified fracture of right calcaneus, subsequent [...] Value Interpretation Reference Range Facility CT ANKLE RIGHT WO CONTRASTon 01-02-2024 CT ANKLE RIGHT WO CONTRAST EXAMINATION: CT ANKLE RIGHT WO CONTRAST 12/30/2023. HISTORY: Patient suffered a fracture of the right calcaneus in August 2021 and has had multiple prior surgeries on the right ankle with prior arthrodesis surgery of the posterior subtalar joint. Persistent right ankle pain. COMPARISON: CT scan right ankle 09/05/2021, CT scan right ankle 06/03/2023, and radiographs of the calcaneus 12/18/2023. TECHNIQUE: Multiple contiguous axial CT images of the right ankle were obtained without contrast. Sagittal and coronal reformatted images were made. Dose reduction techniques were achieved by using automated exposure control and/or adjustment of mA and/or kV according to patient size and/or use of iterative reconstruction technique. FINDINGS: There are postsurgical changes again seen to involve the anteromedial aspect of the distal tibial metaphysis from prior bone graft harvest in this region. There is a similar appearance of moderate degenerative changes of the calcaneocuboid joint and mild degenerative changes of the third tarsometatarsal joint. There are mild degenerative changes again seen of the tibiotalar joint with small marginal osteophytes. There has been near complete interval osseous fusion of the small 5 x 5 mm osteochondral defect previously seen to involve the anteromedial aspect of the talar dome since the prior CT scan. There is a remote healed fracture deformity again seen of the calcaneus. There are postsurgical changes again seen from prior arthrodesis surgery across the posterior subtalar joint with 2 cancellous screws again seen in this region. This hardware appears intact. There are severe degenerative changes again seen of the posterior subtalar joint and there is no significant osseous fusion seen across this joint. No acute fracture or dislocation is seen. There is redemonstration of lateral dislocation of the peroneal tendons from the retromalleolar groove. There is soft tissue swelling again seen laterally. IMPRESSION: 1. 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 No hardware complication is seen. 2. Near complete interval healing of a small osteochondral defect involving the anteromedial aspect of the talar dome since the prior CT scan of 06/03/2023. There are mild degenerative changes again seen of the tibiotalar joint. 3. There is a similar appearance of moderate osteoarthritis of the calcaneocuboid joint. 4. 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 Interpreted by: Luan Kramer MD Signed by: Luan Kramer MD 01/02/24 Final result Normal [facility] CT ANKLE RT WO CONon [address] ANKLE RT WO CON EXAMINATION: [...] MANUELITO LARA Date: 2022-07-09 18:28 Normal [facility] WOUND CULTUREon 11-25-2021 Antimicrobial Susceptibility Comment [facility] Comment on above: Result Comment: S [...] Trimethoprim/Sulfa S Performed By: #### C XWND ####[facility] [address] [id number]. Juan Carlos Francis Bacteria identified Aer cx Nom (Unsp spec) Final report Abnormal [facility] Comment on above: Performed By: #### C XWND ####[facility] [address] [id number] Francis Result 1 Proteus hauseri Abnormal The [facility] Comment on above: Result Comment: Mult i-Drug Resistant Organism Susceptibility profile is consistent with a probable ESBL. Heavy growth Performed By: #### C XWND ####[facility] [address] [place], [place] [address]Dr. Juan Carlos Francis Result 2 Comment Abnormal [facility] Comment on above: Result Comment: Pseu domonas aeruginosa Heavy growth Performed By: #### C XWND ####[facility] [address] [place], [place] [address]Dr. Juan Carlos Francis CBC AUTO DIFFon 11-20-2021 BASO # 0.1 103/ul Normal 0.0-0.1 [facility] Comment on above: Performed By: #### C BC ####[facility] [address] [place], [place] [address]Dr. Juan Carlos Francis Basophils/100 WBC (Bld) 0.6 % Normal 0.2-2.0 [facility] Comment on above: Performed By: #### C BC ####[facility] [address] [place], [place] [address]Dr. Juan Carlos Francis EO # 0.2 103/ul Normal 0.0-0.7 [facility] Comment on above: Performed By: #### C BC ####[facility] [address] [place], [place] [address]Dr. Juan Carlos Francis Eosinophils/100 WBC (Bld) 2.4 % Normal 0.9-7.0 [facility] Comment on above: Performed By: #### C BC ####[facility] [address] [place], [place] [address]Dr. Juan Carlos Francis Erythrocyte distribution width (RBC) [Ratio] 13.2 % Normal 11.0-15.0 [facility] Comment on above: Performed By: #### C BC ####[facility] [address] [place], [place] [address]Dr. Juan Carlos Francis Hematocrit (Bld) [Volume fraction] 43.4 % Normal 42.0-54.0 [facility] Comment on above: Performed By: #### C BC ####[facility] [address] [place], [place] [address]Dr. Juan Carlos Francis Hemoglobin (Bld) [Mass/Vol] 14.5 g/dL Normal 14.0-18.0 [facility] Comment on above: Performed By: #### C BC ####[facility] [address] [address]DrFortino Elgualberto Francis IG # 0.02 10e3/ul Normal 0.00-0.03 [facility] Comment on above: Performed By: #### C BC ####[facility] [address] [address]DrFortino Francis IG % 0.2 % Normal 0.0-0.5 [facility] Comment on above: Performed By: #### C BC ####[facility] [address] [place], [place] [address]DrFortino Francis LYMPH # 1.6 103/ul Normal 1.2-3.8 [facility] Comment on above: Performed By: #### C BC ####[facility] [address] [place], [place] [address]DrFortino Francis Lymphocytes/100 WBC (Bld) 20.3 % Critically low 20.5-60.0 [facility] Comment on above: Performed By: #### C BC ####[facility] [address] [place], [place] [address]DrFortino Siennagualberto Francis MANUAL DIFF REQ NO Normal [facility] Comment on above: Performed By: #### C BC ####[facility] [address] [address]DrFortino Francis MCH (RBC) [Entitic mass] 29.8 pg Normal 25.9-34.0 [facility] Comment on above: Performed By: #### C BC ####[facility] [address] [place], [place] [address]DrFortino Francis MCHC (RBC) [Mass/Vol] 33.4 g/dL Normal 29.9-35.2 [facility] Comment on above: Performed By: #### C BC ####[facility] [address] [place], [place] [address]DrFortino Francis MCV (RBC) [Entitic vol] 89.1 fL Normal 80.0-94.0 [facility] Comment on above: Performed By: #### C BC ####[facility] [address] [address]DrFortino Elgualberto Tito MONO # 0.6 103/ul Normal 0.3-0.8 [facility] Comment on above: Performed By: #### C BC ####[facility] [address] [address]DrFortino Francis Monocytes/100 WBC (Bld) 6.9 % Normal 1.7-12.0 [facility] Comment on above: Performed By: #### C BC ####[facility] [address] [place], [place] [address]DrFortino Elgualberto Tito NEUT # 5.6 103/ul Normal 1.4-6.5 [facility] Comment on above: Performed By: #### C BC ####[facility] [address] [place], [place] [address]DrFortino Francis Neutrophils/100 WBC (Bld) 69.6 % Normal 43.0-75.0 [facility] Comment on above: Performed By: #### C BC ####[facility] [address] [place], [place] [address]DrFortino Francis Platelet mean volume (Bld) [Entitic vol] 8.3 fL Critically low 9.5-13.5 [facility] Comment on above: Performed By: #### C BC ####[facility] [address] [place], [place] [address]Dr. Juan Carlos Francis PLT 352 103/ul Normal 150-450 [facility] Comment on above: Performed By: #### C BC ####[facility] [address] [place], [place] [address]DrFortino Francis RBC 4.87 106/ul Normal 4.70-6.10 [facility] Comment on above: Performed By: #### C BC ####[facility] [address] [place], [place] [id number] Francis WBC 8.1 103/ul Normal 4.0-11.0 [facility] Comment on above: Performed By: #### C BC ####[facility] [address] [address]Dr. Juan Carlos Fracnis CRPon 11-20-2021 CRP [Mass/Vol] mg/L Normal <=1.0 [facility] Comment on above: Performed By: #### B MP, CRP #### [facility] [address] [address] [address] Juan Carlos STEELE STAINon 11-20-2021 DIPHTHEROIDS [facility] Comment on above: Performed By: #### G STAIN #### [facility] [address] [address] [address] Juan Carlos Francis EPITHELIALS [facility] Comment on above: Performed By: #### G STAIN #### [facility] [address] [address] [address] Juan Carlos Francis FUNGAL ELEMENTS Normal [facility] Comment on above: Performed By: #### G STAIN #### [facility] [address] [address] [address] Juan Carlos STEELE NEG BACILLI FEW Normal [facility] Comment on above: Performed By: #### G STAIN #### [facility] [address] [address] [address] Juan Carlos STEELE NEG DIPPLOCOCCI [facility] Comment on above: Performed By: #### G STAIN #### [facility] [address] [address] [address] Juan Carlos STEELE POS BACILLI Normal [facility] Comment on above: Performed By: #### G STAIN #### [facility] [address] [address] [address] Juan Carlos STEELE POSITIVE COCCI FEW Normal [facility] Comment on above: Performed By: #### G STAIN #### [facility] [address] [address] [address] Juan Carlos Francis GRAM STAIN SOURCE Rt Lateral Ankle Normal [facility] Comment on above: Performed By: #### G STAIN #### [facility] [address] [address] [address] Juan Carlos Francis GS_DIPTH [facility] Comment on above: Performed By: #### G STAIN #### [facility] [address] [place] [address] Dr. Juan Carlos Francis WBC RARE [facility] Comment on above: Performed By: #### G STAIN #### [facility] [address] [place] [address] Dr. Juan Carlos Francis PROF CHEM 8 (BAS METB)on Anion gap [Moles/Vol] 14.2 mmol/L [facility] Comment on above: Performed By: #### B MP, CRP #### [facility] [address] [place] [address] Dr. Juan Carlos Francis Calcium [Mass/Vol] 9.1 mg/dL Normal 8.5-10.1 [facility] Comment on above: Performed By: #### B MP, CRP #### [facility] [address] [place] [address] Dr. Juan Carlos Francis Chloride [Moles/Vol] 100 mmol/L Normal 98-107 [facility] Comment on above: Performed By: #### B MP, CRP #### [facility] [address] [place] [address] Dr. Juan Carlos Francis CO2 [Moles/Vol] 30.2 mmol/L Normal 21.0-32.0 [facility] Comment on above: Performed By: #### B MP, CRP #### [facility] [address] [place] [address] Dr. Juan Carlos Francis Creatinine [Mass/Vol] 1.02 mg/dL Normal 0.70-1.30 [facility] Comment on above: Performed By: #### B MP, CRP #### [facility] [address] [place] [address] Dr. Juan Carlos Francis EGFR-AF UGANDAN >60 Normal >=60 [facility] Comment on above: Performed By: #### B MP, CRP #### [facility] [address] [place] [address] Dr. Juan Carlos Francis EGFR-NON AF UGANDAN >60 Normal >=60 [facility] Comment on above: Performed By: #### B MP, CRP #### [facility] [address] [address] [address] Juan Carlos Francis Glucose [Mass/Vol] 113 mg/dL Critically high 74-106 [facility] Comment on above: Performed By: #### B MP, CRP #### [facility] [address] [address] [address] Juan Carlos Francis Potassium [Moles/Vol] 4.4 mmol/L Normal 3.5-5.1 [facility] Comment on above: Performed By: #### B MP, CRP #### [facility] [address] [place] [address] Dr. Juan Carlos Francis Sodium [Moles/Vol] 140 mmol/L Normal 136-145 [facility] Comment on above: Performed By: #### B MP, CRP #### [facility] [address] [place] [address] Dr. Juan Carlos Francis Urea nitrogen [Mass/Vol] 11.0 mg/dL Normal 7.0-18.0 [facility] Comment on above: Performed By: #### B MP, CRP #### [facility] [address] [place] [address] Dr. Juan Carlos Francis Urea nitrogen/Creatinine [Mass ratio] 10.8 mg/mg [facility] Comment on above: Performed By: #### B MP, CRP #### [facility] [address] [place] [address] Dr. Juan Carlos Francis SED RATE WESTERGRENon 2021 SED RATE 3 mm/hr Normal <=15 [facility] Comment on above: Performed By: #### S EDR #### [facility] [address] [place] [address] Dr. Juan Carlos Francis CBC AUTO DIFFon 09-27-2021 BASO # 0.0 103/ul Normal 0.0-0.1 [facility] Comment on above: Performed By: #### C BC #### [facility] [address] [place] [address] Dr. Juan Carlos Francis Basophils/100 WBC (Bld) 0.2 % Normal 0.2-2.0 [facility] Comment on above: Performed By: #### C BC #### [facility] [address] [place] [address] Dr. Juan Carlos Francis EO # 0.1 103/ul Normal 0.0-0.7 [facility] Comment on above: Performed By: #### C BC #### [facility] [address] [place] [address] Dr. Juan Carlos Francis Eosinophils/100 WBC (Bld) 0.5 % Critically low 0.9-7.0 [facility] Comment on above: Performed By: #### C BC #### [facility] [address] [place] [address] Dr. Juan Carlos Francis Erythrocyte distribution width (RBC) [Ratio] 12.4 % Normal 11.0-15.0 [facility] Comment on above: Performed By: #### C BC #### [facility] [address] [place] [address] Dr. Juan Carlos Francis Hematocrit (Bld) [Volume fraction] 38.2 % Critically low 42.0-54.0 [facility] Comment on above: Performed By: #### C BC #### [facility] [address] [place] [address] Dr. Juan Carlos Francis Hemoglobin (Bld) [Mass/Vol] 13.3 g/dL Critically low 14.0-18.0 [facility] Comment on above: Performed By: #### C BC #### [facility] [address] [place] [address] Dr. Juan Carlos Francis IG # 0.11 10e3/ul Critically high 0.00-0.03 [facility] Comment on above: Performed By: #### C BC #### [facility] [address] [place] [address] Dr. Juan Carlos Francis IG % 1.0 % Critically high 0.0-0.5 [facility] Comment on above: Performed By: #### C BC #### [facility] [address] [place] [address] Dr. Juan Carlos Francis LYMPH # 1.1 103/ul Critically low 1.2-3.8 [facility] Comment on above: Performed By: #### C BC #### [facility] [address] [place] [address] Dr. Juan Carlos Francis Lymphocytes/100 WBC (Bld) 9.2 % Critically low 20.5-60.0 [facility] Comment on above: Performed By: #### C BC #### [facility] [address] [place] [address] Dr. Juan Carlos Francis MANUAL DIFF REQ NO Normal [facility] Comment on above: Performed By: #### C BC #### [facility] [address] [place] [address] Dr. Juan Carlos Francis MCH (RBC) [Entitic mass] 30.6 pg Normal 25.9-34.0 [facility] Comment on above: Performed By: #### C BC #### [facility] [address] [place] [address] Dr. Juan Carlos Francis MCHC (RBC) [Mass/Vol] 34.8 g/dL Normal 29.9-35.2 [facility] Comment on above: Performed By: #### C BC #### [facility] [address] [place] [address] Dr. Juan Carlos Francis MCV (RBC) [Entitic vol] 88.0 fL Normal 80.0-94.0 [facility] Comment on above: Performed By: #### C BC #### [facility] [address] [place] [address] Dr. Juan Carlos Francis MONO # 1.2 103/ul Critically high 0.3-0.8 [facility] Comment on above: Performed By: #### C BC #### [facility] [address] [place] [address] Dr. Juan Carlos Francis Monocytes/100 WBC (Bld) 10.2 % Normal 1.7-12.0 [facility] Comment on above: Performed By: #### C BC #### [facility] [address] [place] [address] Dr. Juan Carlos Francis NEUT # 9.1 103/ul Critically high 1.4-6.5 [facility] Comment on above: Performed By: #### C BC #### [facility] [address] [place] [address] Dr. Juan Carlos Francis Neutrophils/100 WBC (Bld) 78.9 % Critically high 43.0-75.0 [facility] Comment on above: Performed By: #### C BC #### [facility] [address] [place] [address] Dr. Juan Carlos Francis Platelet mean volume (Bld) [Entitic vol] 8.9 fL Critically low 9.5-13.5 [facility] Comment on above: Performed By: #### C BC #### [facility] [address] [place] [address] Dr. Juan Carlos Francis PLT 254 103/ul Normal 150-450 [facility] Comment on above: Performed By: #### C BC #### [facility] [address] [place] [address] Dr. Juan Carlos Francis RBC 4.34 106/ul Critically low 4.70-6.10 [facility] Comment on above: Performed By: #### C BC #### [facility] [address] [place] [address] Dr. Juan Carlos Francis WBC 11.6 103/ul Critically high 4.0-11.0 [facility] Comment on above: Performed By: #### C BC #### [facility] [address] [place] [address] Dr. Juan Carlos Francis PROF CHEM 8 (BAS METB)on Anion gap [Moles/Vol] 12.3 mmol/L [facility] Comment on above: Performed By: #### B MP #### [facility] [address] [place] [address] Dr. Juan Carlos Francis Calcium [Mass/Vol] 8.7 mg/dL Normal 8.5-10.1 [facility] Comment on above: Performed By: #### B MP #### [facility] [address] [place] [address] Dr. Juan Carlos Francis Chloride [Moles/Vol] 95 mmol/L Critically low 98-107 [facility] Comment on above: Performed By: #### B MP #### [facility] [address] [address] [address] Juan Carlos Francis CO2 [Moles/Vol] 29.1 mmol/L Normal 21.0-32.0 [facility] Comment on above: Performed By: #### B MP #### [facility] [address] [address] [address] Juan Carlos Francis Creatinine [Mass/Vol] 1.57 mg/dL Critically high 0.70-1.30 [facility] Comment on above: Performed By: #### B MP #### [facility] [address] [place] [address] Dr. Juan Carlos Francis EGFR-AF UGANDAN 58 mL/min/1.73m2 Critically low >=60 [facility] Comment on above: Performed By: #### B MP #### [facility] [address] [place] [address] Dr. Juan Carlos Francis EGFR-NON AF UGANDAN 48 mL/min/1.73m2 Critically low >=60 [facility] Comment on above: Performed By: #### B MP #### [facility] [address] [place] [address] Dr. Juan Carlos Francis Glucose [Mass/Vol] 125 mg/dL Critically high 74-106 [facility] Comment on above: Performed By: #### B MP #### [facility] [address] [address] [address] Juan Carlos Francis Potassium [Moles/Vol] 3.4 mmol/L Critically low 3.5-5.1 [facility] Comment on above: Performed By: #### B MP #### [facility] [address] [address] [address] Juan Carlos Francis Sodium [Moles/Vol] 133 mmol/L Critically low 136-145 [facility] Comment on above: Performed By: #### B MP #### [facility] [address] [address] [address] Juan Carlos Francis Urea nitrogen [Mass/Vol] 27.0 mg/dL Critically high 7.0-18.0 [facility] Comment on above: Performed By: #### B MP #### [facility] [address] [address] [address] Juan Carlos Francis Urea nitrogen/Creatinine [Mass ratio] 17.2 mg/mg Normal [facility] Comment on above: Performed By: #### B MP #### [facility] [id number] Juan Carlos Francis POINT OF CARE GLUCOSEon 07-0 Glucose [Mass/Vol] 115 mg/dL Critically high 74-106 T he [facility] Comment on above: Performed By: #### P OCGLUC ####[facility] [address] [address]Dr. Juan Carlos Francis Covid-19 PCR (CVDTBH)on 08-24 SARS-CoV-2 (COVID-19) RNA JOSE M+probe Ql (Unsp spec) Not detected Normal NOT DETECTED [facility] Comment on above: Result Comment: This test is not yet approved or cleared by the [place] FDA. When there are no FDA-approved or cleared tests available, and other criteria are met, FDA can make tests available under an emergency access mechanism called an Emergency Use Authorization (EUA). The EUA for this test is supported by the [place] [employer] of Health and Human Service's (HHS's) declaration [...] SARS-CoV-2. Performed By: #### C VDTBH #### [facility] [id number] Juan Carlos Francis PROF CHEM 8 (BAS METB)on Anion gap [Moles/Vol] 13.1 mmol/L Normal [facility] Comment on above: Performed By: #### B MP ####[facility] [address] [address]Dr. Juan Carlos Francis Calcium [Mass/Vol] 9.4 mg/dL Normal 8.5-10.1 [facility] Comment on above: Performed By: #### B MP ####[facility] [address] [address]Dr. Juan Carlos Francis Chloride [Moles/Vol] 99 mmol/L Normal 98-107 [facility] Comment on above: Performed By: #### B MP ####[facility] [address] [place], [place] [address]Dr. Juan Carlos Francis CO2 [Moles/Vol] 30.5 mmol/L Normal 21.0-32.0 [facility] Comment on above: Performed By: #### B MP ####[facility] [address] [place], [place] [address]Dr. Juan Carlos Francis Creatinine [Mass/Vol] 1.12 mg/dL Normal 0.70-1.30 [facility] Comment on above: Performed By: #### B MP ####[facility] [address] [place], [place] [address]Dr. Juan Carlos Francis EGFR-AF UGANDAN >60 Normal >=60 [facility] Comment on above: Performed By: #### B MP ####[facility] [address] [place], [place] [address]Dr. Juan Carlos Tito EGFR-NON AF UGANDAN >60 Normal >=60 [facility] Comment on above: Performed By: #### B MP ####[facility] [address] [place], [place] [address]Dr. Juan Carlos Francis Glucose [Mass/Vol] 124 mg/dL Critically high 74-106 [facility] Comment on above: Performed By: #### B MP ####[facility] [address] [place], [place] [address]Dr. Siennagualberto Francis Potassium [Moles/Vol] 3.6 mmol/L Normal 3.5-5.1 [facility] Comment on above: Performed By: #### B MP ####[facility] [address] [place], [place] [address]Cn. Juan Carlos Francis Sodium [Moles/Vol] 139 mmol/L Normal 136-145 [facility] Comment on above: Performed By: #### B MP ####[facility] [address] [place], [place] [address]Wj. Juan Carlos Francis Urea nitrogen [Mass/Vol] 7.0 mg/dL Normal 7.0-18.0 [facility] Comment on above: Performed By: #### B MP ####[facility] [address] [place], [place] [address]Mv. Juan Carlos Francis Urea nitrogen/Creatinine [Mass ratio] 6.2 mg/mg Normal [facility] Comment on above: Performed By: #### B MP ####[facility] [address] [place], [place] [address] ANKLE RT WO [...] MANUELITO MONTOYA Date: 2021-09-05 21:41 Normal [facility] XR ankle RT min 3V*on 2021 XR ankle RT min 3V* [facility] [address] [place] [id number] XRay Report Signed Patient: Raza Dooley MR#: [id number] 13 : 1975 Acct:[id number] Age/Sex: 46 / M ADM Date: 09/05/21 Loc: SOXD Room: Type: [facility] Attending Dr: Anuel Albert DPM, MS Copies to: Anuel Albert DPM MS Ordering Provider: Anuel Albert DPM, MS Date of Service: 09/05/21 XR/XR ankle RT min 3V*: M25.571 ([id number]) XR/XR foot RT min 3V*: M25.751 XR [...] Reji Machado M.D.09/05/2021 2:01 PM Dictation Location: [place] [address] Transcribed By: [facility] 09/05/21 1401 Dictated By: Reji Machado II, MD 09/05/21 1357 Signed By: 09/05/21 1401 [facility] XR Ankle Complete Righton XR Ankle [...] signed by Nela Nunez on 08/28/2021 0815 Normal [facility] [employer] Encounters Encounter Date Encounter Type Care Provider Facility Start: 12-30-2023 End: 01-01-2024 ambulatory [facility] Start: 06-28-2023 End: 06-28-2023 [facility] Start: 06-28-2023 End: 06-28-2023 Subsequent hospital visit by physician Kerethi Monsalve PT [facility] Comment on above: Arrived Start: 06-26-2023 End: 06-26-2023 [facility] Start: 06-24-2023 End: 06-24-2023 [facility] Start: 06-21-2023 End: 06-21-2023 [facility] Start: 06-19-2023 End: 06-19-2023 [facility] Start: 06-19-2023 End: 06-19-2023 Subsequent hospital visit by physician Zach Mock PTA [facility] Comment on above: Arrived Start: 06-18-2023 End: 06-18-2023 [facility] Start: 06-14-2023 End: 06-14-2023 Subsequent hospital visit by physician Keerthi Monsalve PT [facility] Start: 06-12-2023 End: 06-12-2023 [facility] Start: 06-11-2023 End: 06-11-2023 [facility] Start: 06-07-2023 End: 06-07-2023 [facility] Start: 06-07-2023 End: 06-07-2023 Subsequent hospital visit by physician Keerthi Monsalve PT [facility] Comment on above: Arrived Start: 06-05-2023 End: 06-05-2023 ambulatory [facility] Start: 06-04-2023 End: 06-04-2023 ambulatory [facility] Start: 05-31-2023 End: 05-31-2023 [facility] Start: 05-29-2023 End: 05-29-2023 [facility] Start: 05-27-2023 End: 05-27-2023 Subsequent hospital visit by physician Dena STEEL[facility] Start: 05-24-2023 End: 05-24-2023 ambulatory [facility] Start: 08-27-2022 [facility] Start: 08-13-2022 [facility]ulatory [facility] Start: 07-09-2022 End: 07-10-2022 [facility]ulatory [facility] Start: 06-20-2022 End: 06-21-2022 [facility]ulatory [facility] Start: 03-12-2022 End: 03-13-[address] DOCTOR SADLER Facility:H1 Start: 02-05-2022 End: 02-05-2022 Subsequent hospital visit by physician Peter Valentine [facility] Comment on above: Arrived Start: 02-02-2022 End: 02-02-2022 Subsequent hospital visit by physician Peter STEELH[facility] Comment on above: Arrived Start: [...] Therapy Start: 01-24-2022 End: 01-25-2022 ambulatory ANUEL Raman [facility] Facility:H1 Start: 01-22-2022 End: 01-22-2022 Subsequent hospital visit by physician Dena Berkowitz [facility] Physical Therapy Comment on above: Arrived Start: 12-29-2021 End: 12-30-2021 ambulatory ANUEL ALBERT Facility:H1 Start: 12-08-2021 End: 12-09-2021 ambulatory [facility] Start: 11-24-2021 End: 11-25-2021 [facility]ulatory [facility] Start: 11-20-2021 End: 11-21-[address] DOCTOR SADLER Facility:H1 Start: 10-17-2021 End: 10-18-2021 ambulatory NEIL SIU Facility:H1 Start: 09-27-2021 Encounter for preprocedural cardiovascular examination [facility] Start: 09-27-2021 Encounter for preprocedural laboratory examination [facility] Start: 09-26-2021 End: 09-27-2021 ambulatory [facility] Start: 09-19-2021 End: 09-20-2021 ambulatory ANUEL Raman [facility] Facility:H1 Start: 09-19-2021 End: 09-20-2021 Encounter for preprocedural cardiovascular examination NAUEL Raman [facility] Facility:H1 Start: 09-05-2021 End: 09-06-2021 ambulatory ANUEL Raman [facility] Facility:H1 Start: 09-05-2021 End: 09-05-2021 Patient encounter procedure PHYSICIAN NO FAMILY [facility] Procedures Date Procedure Procedure Detail Performing Clinician Start: 09-05-2021 X-ray of right ankle PH YSICIAN NO FAMILY Start: 09-05-2021 X-ray of right foot PHY SICIAN NO FAMILY Plan of Treatment Date Care Activity Detail Author Start: 12-25-2023 Depression Screen [facility] Start: 10-24-2023 Influenza vaccination Flu vacc ine (Season Ended) [facility] Start: 06-28-2023 End: 06-28-2023 Patient encounter procedure 06/28/2023 7:30 AM EDT Appointment [facility] Physical Therapy [address] [place] [address] Keerthi Monsalve, PT WC-14 of 18 visits valid until 06/28/2023-RT Ankle-Fatuma [place]/ Peter Highlander [facility] Comment on above: WC-14 of 18 visits v alid until 06/28/2023-RT Ankle-Fatuma [place]/ Peter Highlander Start: 06-26-2023 End: 06-26-2023 Patient encounter procedure 06/26/2023 8:00 AM EDT Appointment [facility] [address] [place] [address] Keerthi Monsalve, PT WC-13 of 18 visits valid until 06/28/2023-RT Ankle-Fatuma Jacques/ Peter Highlander [facility] Comment on above: WC-13 of 18 visits v alid until 06/28/2023-RT Ankle-Fatuma Jacques/ Peter Highlander Start: 06-24-2023 End: 06-24-2023 Patient encounter procedure 06/24/2023 8:15 AM EDT Appointment [facility] [address] [place] [address] Peter Valentine WC-12 of 18 visits valid until 06/28/2023-RT Ankle-Fatuma Jacques/ Peter Highlander [facility] Comment on above: WC-12 of 18 visits v alid until 06/28/2023-RT Ankle-Fatuma [place]/ Peter Highlander Start: 06-21-2023 End: 06-21-2023 Patient encounter procedure 06/21/2023 7:30 AM EDT Appointment [facility] [address] [place] [address] Keerthi Monsalve, PT WC-11 of 18 visits valid until 06/28/2023-RT Ankle-Fatuma [place]/ Peter Highlander [facility] Comment on above: WC-11 of 18 visits v alid until 06/28/2023-RT Ankle-Fatuma [place]/ Peter Highlander Start: 06-19-2023 End: 06-19-2023 Patient encounter procedure 06/19/2023 8:00 AM EDT Appointment [facility] [address] [place] [address] Zach Mock PTA WC-10 of 18 visits valid until 06/28/2023-RT Ankle-Fatuma Jacques/ Peter Highlander [facility] Comment on above: WC-10 of 18 visits v alid until 06/28/2023-RT Ankle-Fatuma [place]/ Peter Highlander Start: 06-18-2023 Subsequent hospital visit by physician 06/18/2023 8:00 AM EDT Hospital Encounter [facility] [address] [place] [address] Zach Mock PTA [facility] Start: 06-14-2023 End: 06-14-2023 Patient encounter procedure 06/14/2023 8:45 AM EDT Appointment [facility] [address] [place] [place] [address] Keerthi Monsalve, PT WC-9 of 18 visits valid until 06/28/2023-RT Ankle-Fatuma [place]/ Peter Highlander [facility] Comment on above: WC-9 of 18 visits va lid until 06/28/2023-RT Ankle-Fatuma Jacques/ Peter Highlander Start: 06-12-2023 End: 06-12-2023 Patient encounter procedure 06/12/2023 8:00 AM EDT Appointment [facility] [address] [place] [place] [address] Zach Mock SUPERVISOR IN CHARGE WC-8 of 18 visits valid until 06/28/2023-RT Ankle-Fatuma Jacques/ Peter Highlander [facility] Comment on above: WC-8 of 18 visits va lid until 06/28/2023-RT Ankle-Fatuma Jacques/ Peter Highlander Start: 06-11-2023 End: 06-11-2023 Patient encounter procedure 06/11/2023 8:00 AM EDT Appointment [facility] [address] [place] [address] Zach Mock, SUPERVISOR IN CHARGE WC-7 of 18 visits valid until 06/28/2023-RT Ankle-Fatuma Jacques/ Peter Highlander [facility] Comment on above: WC-7 of 18 visits va lid until 06/28/2023-RT Ankle-Fatuma [place]/ Peter Highlander Start: 06-07-2023 End: 06-07-2023 Patient encounter procedure 06/07/2023 7:30 AM EDT Appointment [facility] [address] [place] [address] Keerthi Monsalve, PT WC-6 of 18 visits valid until 06/28/2023-RT Ankle-Fatuma [place]/ Peter Highlander [facility] Comment on above: WC-6 of 18 visits va lid until 06/28/2023-RT Ankle-Fatuma [place]/ Peter Highldaniele Start: 06-05-2023 End: 06-05-2023 Patient encounter procedure 06/05/2023 8:00 AM EDT Appointment [facility] [address] [place] [address] Zach Mock PTA WC-5 of 18 visits valid until 06/28/2023-RT Ankle-Fatuma Jacques/ Peter Highlander [facility] Comment on above: WC-5 of 18 visits va lid until 06/28/2023-RT Ankle-Fatuma [place]/ Peter Highldaniele Start: 06-04-2023 End: 06-04-2023 Patient encounter procedure 06/04/2023 8:00 AM EDT Appointment [facility] [address] [place] [address] Zach Mock, SUPERVISOR IN CHARGE WC-4 of 18 visits valid until 06/28/2023-RT Ankle-Fatuma [place]/ Peter Gustavoander [facility] Comment on above: WC-4 of 18 visits va lid until 06/28/2023-RT Ankle-Fatuma Jacques/ Peter Highldaniele Start: 05-31-2023 End: 05-31-2023 Patient encounter procedure 05/31/2023 7:30 AM EST Appointment [facility] [address] [place] [address] Dena Berkowitz WC-3 of 18 visits valid until 06/28/2023-RT Ankle-Fatuma Jacques/ Peter Highlander [facility] Comment on above: WC-3 of 18 visits va lid until 06/28/2023-RT Ankle-Fatuma [place]/ Peter Highldaniele Start: 12-26-2022 Influenza vaccination Flu vaccine (# 1) [facility] Comment on above: Postponed from 10/23 (Patient Refused) Start: 12-24-2022 End: 12-24-2022 Patient encounter procedure 12/24/2022 Office Visit Family Medicine Rodrigue Harper MD [address] [place] [address] [facility] Start: 10-23-2022 Influenza vaccination Flu vaccine (# 1) [facility] Start: 07-03-2022 Depression Screen Depression Screen [facility] Start: 02-21-2022 End: 02-21-2022 Patient encounter [...] procedure 02/05/2022 Appointment Physical Therapy Peter Valentine [facility] Start: 02-02-2022 End: 02-02-2022 [...] Screening for malign ant neoplasm of colon [facility] Start: 2014 Lipid panel Lipids [facility] Start: 2009 Diabetes screen Diabetes screen [facility] Start: 1993 DTaP/Tdap/Td vaccine (1 - Tdap) DTaP/Tdap/Td vaccine (1 - Tdap) [facility] Start: 1992 Hepatitis C screening Hepatitis C sc reen [facility] Start: 1989 HIV screening HIV screen [facility] Start: 1974 COVID-19 Vaccine (#1) COVID-19 Vacci ne (#1) [facility] Start: 1974 Hepatitis B vaccine (1 of 3 - 3-dose series) Hepatitis B vaccine (1 of 3 - 3-dose series) [facility] Payers Date Payer Category Payer Unknown [id number] 2021 Unknown 2021 [id number] .[id number] 1974 Unknown [id number] 2.16.840.1.212009.3.579.2.593 1974 Unknown [id number] 2.16.840.1.265737.3.579.2.593 1974 Unknown [id number] 2.16.840.1.819037.3.579.2.593 1974 Unknown [id number] 2.16.840.1.406585.3.579.2.593 1974 Unknown [id number] 2.16.840.1.372552.3.579.2.593 1974 Unknown [id number] 2.16.840.1.651185.3.579.2.593 1974 Unknown [id number] 2.16.840.1.199105.3.579.2.593 1974 Unknown [id number] 2.16.840.1.755807.3.579.2.593 1974 Unknown [id number] 2.16.840.1.563138.3.579.2.593 1974 Unknown [id number] 2.16.840.1.223592.3.579.2.593 1974 Unknown [id number] 2.16.840.1.495443.3.579.2.593 1974 Unknown [id number] 2.16.840.1.659515.3.579.2.593 1974 Unknown [id number] 2.16.840.1.723278.3.579.2.593 1974 Unknown [id number] 2.16.840.1.947410.3.579.2.593 1974 Unknown [id number] 2.16.840.1.329767.3.579.2.593 1974 Unknown [id number] 2.16.840.1.184704.3.579.2.174 1974 Unknown [id number] 2.16.840.1.744290.3.579.2.174 1974 Unknown [id number] 2.16.840.1.566498.3.579.2.174 1974 Unknown [id number] 2.16.840.1.062274.3.579.2.174 1974 Unknown [id number] 2.16.840.1.156017.3.579.2.174 1974 Unknown [id number] 2.16.840.1.008642.3.579.2.174 1974 Unknown [id number] 2.16.840.1.478605.3.579.2.174 1974 Unknown [id number] 2.16.840.1.957654.3.579.2.174 1974 Unknown [id number] 2.16.840.1.447014.3.579.2.174 1974 Unknown [id number] 2.16.840.1.025209.3.579.2.174 1974 Unknown [id number] 2.16.840.1.032059.3.579.2.174 1974 Unknown [id number] 2.16.840.1.263836.3.579.2.174 1974 Unknown [id number] 2.16.840.1.408279.3.579.2.174 1974 Unknown [id number] 2.16.840.1.470039.3.579.2.174 1974 Unknown [id number] 2.16.840.1.563813.3.579.2.174 1959 Worker's Compensation [id number] Worker's Compensation Self-pay Self Pay [id number] Worker's Compensation [employer] [facility] [id number] Social History Date Type Detail Facility Start: 03-25-1989 End: 03-25-2018 Tobacco smoking status VAIS Smoker (finding) [facility] Start: 1975 Sex Assigned At Male F [facility] Start: 12-26-2021 Tobacco smoking stat us [facility] Ex-smoker [facility] [employer] Start: 03-25-1989 End: 03-25-2018 History of tobacco use Cigarette Smoker [facility] Work Phone: Start: 12-26-2021 End: 12-24-2022 Cigarettes smoked current (pack per day) - Reported 0.5 [employer] Phone: Start: 12-26-2021 Tobacco use and exposure User of smokeless tobacco [employer] Work Phone: History of tobacco use Chews Tobacco [employer] Phone: Start: 12-26-2021 End: 12-24-2022 Alcohol intake Current non-drinker of alcohol (finding) [employer] Work Phone: Start: 07-03-2021 History SDOH Financial 5 [employer] Work Phone: Start: 07-03-2021 History SDOH Food Worry 1 [employer] Work Phone: Start: 05-16-2020 History SDOH Transpo rt Med 2 [employer] Work Phone: Start: 05-16-2020 Education 13 [employer] Work Phone: Start: 1975 Sex Assigned At Not on file B ON [employer] Work Phone: Start: 12-24-2022 Tobacco use panel YABUY How hard is it for y ou to pay for the very basics like food, housing, medical care, and heating Not hard at all [facility] (I/We) worried wheth er (my/our) food would run out before (I/we) got money to buy more. Never true [facility] At any time in the p ast 12 months, were you homeless or living in ch[facility] [including now]? No [facility] Clinical Notes 09-27-2021 to 06-28-2023 Keerthi Monsalve, PT - 06/28/2023 7:30 AM Keerthi Amezcua, PT - 06/28/2023 7:30 AM Zach Jolley PTA - 06/19/2023 8:00 AM Peter Hu - 06/14/2023 8:45 AM EDT Note Date & Type Note Facility 06-28-2023 History of Present illness Narrative Images from the original note were not included. [facility] Out[facility] Therapy Daily Note Date: 06/28/2023 Patient Name: Raza Dooley : 1975 (48 y.o.) Referring Provider (secondary): PO Saenz / Dr. Albert Diagnosis: S/P STJ fusion; calcaneus fractures Treatment Diagnosis: R foot pain Onset Date: 02/19/24 (Surgery date) PT Insurance Information: [facility] Total # of Visits Approved: 18 Per Physician Order Total # of Visits to Date: 14 Canceled Appointment: 2 Plan of Care/Certification Expiration Date: 06/28/23 ([facility] expiration) Pre-Treatment Pain: 2/10 Assessment [...] sec 2 of 4 trials - MET Flarer Goals Time Frame for Flarer Goals : 18 Skilled Nursing Goal 1: Improved gait pattern heel to toe WFL-Not Met Skilled Nursing Goal 2: Improve functional mobility with LEFS score >55/80 (from 47/80)- Partially met Flarer Goal 3: Decrease pain R foot 2/10 at worst x3 days- Not Met Post Treatment Pain: 2/10 Time In: 7:30 Time Out : 8:05 Timed Code Treatment Minutes: 35 Minutes Total Treatment Time: 35 Minutes Keerthi Monsalve, PT Date: 06/28/2023 documented in this encounter [facility] 06-28-2023 Hospital course Narrative Images from the original note were not included. [facility] Outpatient Physical Therapy Discharge Summary Patient: Raza Dooley : 1975 Referring Provider (secondary): PO Saenz / Dr. Albert Diagnosis: S/P STJ fusion; calcaneus fractures Date Treatment Initiated: 05/24/23 Date of Last Treatment: 06/28/23 PT Visit Information Onset Date: 02/19/24 (Surgery date) PT Insurance Information: [facility] Total # of Visits Approved: 18 Total # of Visits to Date: 14 Plan of Care/Certification Expiration Date: 06/28/23 ([facility] expiration) Canceled Appointment: 2 Frequency/Duration [...] sec 2 of 4 trials - MET Flarer Goals Time Frame for Flarer Goals : 18 Flarer Goal 1: Improved gait pattern heel to toe WFL-Not Met Skilled Nursing Goal 2: Improve functional mobility with LEFS score >55/80 (from 47/80)- Partially met Skilled Nursing Goal 3: Decrease pain R foot 2/10 at worst x3 days- Not Met Reason for Discharge Completion of Prescribed visits and Optimal Function Achieved Comments: Thank you for this referral Keerthi Monsalve, PT Date: 06/28/2023 documented in this encounter [facility] 06-19-2023 History of Present illness Narrative Images from the original note were not included. [facility] Outpatient Physical Therapy Daily Note Date: 06/19/2023 Patient Name: Raza Dooley : 1975 (48 y.o.) Referring Provider (secondary): PO Saenz / Dr. Albert Diagnosis: S/P STJ fusion; calcaneus fractures Treatment Diagnosis: R foot pain Onset Date: 02/19/24 (Surgery date) PT Insurance Information: [facility] Total # of Visits Approved: 18 Per Physician Order Total # of Visits to Date: 10 Canceled Appointment: 2 Plan of Care/Certification Expiration Date: 06/28/23 ([facility] expiration) Pre-Treatment Pain: 1/10 Assessment [...] sec 2 of 4 trials - MET Flarer Goals Time Frame for Skilled Nursing Goals : 18 Skilled Nursing Goal 1: Improved gait pattern heel to toe WFL Skilled Nursing Goal 2: Improve functional mobility with LEFS score >55/80 (from 47/80) Flarer Goal 3: Decrease pain R foot 2/10 at worst x3 days Post Treatment Pain: 1/10 Time In: 0802 Time Out : 0844 Timed Code Treatment Minutes: 42 Minutes Total Treatment Time: 42 Minutes Ther Ex: Manual: [id number] Zach Mock PTA Date: 06/19/2023 documented in this encounter [facility] 06-14-2023 History of Present illness Narrative Occupational Therapy [facility] Date: 06/14/2023 Patient Name: Raza Dooley : 1975 Pt Cancelled Appt due to no reason for cancel Peter Gianluca Cox Date: 06/14/2023 documented in this encounter [facility] 06-07-2023 History of Present illness Narrative Images from the original note were not included. [facility] Outpatient Physical Therapy Daily Note Date: 06/07/2023 Patient Name: Raza Dooley : 1975 (48 y.o.) Referring Provider (secondary): PO Saenz / Dr. Albert Diagnosis: S/P STJ fusion; calcaneus fractures Treatment Diagnosis: R foot pain Onset Date: 02/19/24 (Surgery date) PT Insurance Information: [facility] Total # of Visits Approved: 18 Per Physician Order Total # of Visits to Date: 6 Canceled Appointment: 1 Plan of Care/Certification Expiration Date: 06/28/23 ([facility] expiration) Pre-Treatment Pain: 2/10 Assessment [...] balance x20 sec 2 of 4 trials-Met Skilled Nursing Goals Time Frame for Flarer Goals : 18 Skilled Nursing Goal 1: Improved gait pattern heel to toe WFL Skilled Nursing Goal 2: Improve functional mobility with LEFS score >55/80 (from 47/80) Skilled Nursing Goal 3: Decrease pain R foot 2/10 at worst x3 days Post Treatment Pain: 2/10 Time In: 7;30 Time Out : 8:10 Timed Code Treatment Minutes: 40 Minutes Total Treatment Time: 40 Minutes Keerthi Monsalve PT Date: 06/07/2023 documented in this encounter [facility] 06-21-2022 Note PROCEDURE: XR FOOT R [...] authenticated by: MANUELITO LARA Date: 2022-06-21 08:09 [facility] 03-12-2022 Note PROCEDURE: XR FOOT R [...] authenticated by: NIRMAL LYONS Date: 2022-03-12 21:58 [facility] 02-05-2022 History of Present illness Narrative Images from the original note were not included. [facility] Outpatient Physical Therapy Daily Note Date: 02/05/2022 Patient Name: Raza Dooley ACCT#: : 1975 (46 y.o.) Referring Provider (secondary): Dr. Anuel Albert Diagnosis: R ankle pain, fractures R calcaneus Treatment Diagnosis: Right ankle pain Onset Date: 08/26/21 PT Insurance Information: [facility] Total # of Visits Approved: [...] walk with heel to toe gait pattern-met Skilled Nursing Goals Time Frame for Skilled Nursing Goals : 18 Flarer Goal 1: Improve functional activities with LEFS score >65/80 Skilled Nursing Goal 2: Patient to hold SLS R Le x10 sec forgood dynamic stability Post Treatment Pain: 04/03 Time In: 0730 Time Out : 0812 Timed Code Treatment Minutes: 42 Minutes Total Treatment Time: 42 Minutes Peter Valentine SUPERVISOR IN CHARGE Date: 02/05/2022 documented in this encounter [place] [employer] Phone: 02-02-2022 History of Present illness Narrative Images from the original note were not included. [facility] Outpatient Physical Therapy Daily Note Date: 02/02/2022 Patient Name: Raza Dooley : 1975 (46 y.o.) Referring Provider (secondary): Dr. Anuel Albert Diagnosis: R ankle pain, fractures R calcaneus Treatment Diagnosis: Right ankle pain Onset Date: 08/26/21 PT Insurance Information: [facility] Total # of Visits Approved: [...] walk with heel to toe gait pattern-met Flarer Goals Time Frame for Skilled Nursing Goals : 18 Flarer Goal 1: Improve functional activities with LEFS score >65/80 Skilled Nursing Goal 2: Patient to hold SLS R Le x10 sec forgood dynamic stability Post Treatment Pain: 2/10 Time In: 0730 Time Out : 0805 Timed and total 35 min Peter Valentine SUPERVISOR IN CHARGE Date: 02/02/2022 documented in this encounter [facility] [employer] Phone: 01-31-2022 History of Present illness Narrative Images from the original note were not included. [facility] Outpatient Physical Therapy Daily Note Date: 01/31/2022 Patient Name: Raza Dooley ACCT#: : 1975 (46 y.o.) Referring Provider (secondary): Dr. Anuel Ablert Diagnosis: R ankle pain, fractures R calcaneus Treatment Diagnosis: Right ankle pain Onset Date: 08/26/21 PT Insurance Information: [facility] Total # of Visits Approved: [...] walk with heel to toe gait pattern-met Flarer Goals Time Frame for Flarer Goals : 18 Skilled Nursing Goal 1: Improve functional activities with LEFS score >65/80 Skilled Nursing Goal 2: Patient to hold SLS R Le x10 sec forgood dynamic stability Post Treatment Pain: 0/10 Time In: 0730 Time Out : 0805 Timed and total 35 min Peter Valentine SUPERVISOR IN CHARGE Date: 01/31/2022 documented in this encounter [facility] [employer] Phone: 01-29-2022 History of Present illness Narrative [facility] Date: 01/29/2022 Patient Name: Raza Dooley : 1975 Pt Cancelled Appt due to no reason for cancel. Peter Cox Date: 01/29/2022 documented in this encounter [facility] [employer] Phone: 01-26-2022 History of Present illness Narrative Physical Therapy [facility] Date: 01/26/2022 Patient Name: Raza Dooley : 1975 Patient is not feeling well. Will return on the next appointment. Idania Gabbi Amalia Date: 01/26/2022 documented in this encounter [facility] [employer] Phone: 01-25-2022 History of Present illness Narrative Images from the original note were not included. [facility] Outpatient Physical Therapy Daily Note Date: 01/25/2022 Patient Name: Raza Dooley ACCT#: : 1975 (46 y.o.) Referring Provider (secondary): Dr. Anuel Albert Diagnosis: R ankle pain, fractures R calcaneus Treatment Diagnosis: Right ankle pain Onset Date: 08/26/21 PT Insurance Information: [facility] Total # of Visits Approved: [...] walk with heel to toe gait pattern Skilled Nursing Goals Time Frame for Flarer Goals : 18 Skilled Nursing Goal 1: Improve functional activities with LEFS score >65/80 Skilled Nursing Goal 2: Patient to hold SLS R Le x10 sec forgood dynamic stability Post Treatment Pain: 04/03 Time In: 0730 Time Out : 0812 Timed Code Treatment Minutes: 42 Minutes Total Treatment Time: 42 Minutes Peter Valentine SUPERVISOR IN CHARGE Date: 01/25/2022 documented [facility] [employer] Phone: 01-24-2022 Note PROCEDURE: XR FOOT R [...] by: MANUELITO LARA Date: 2022-01-24 19:12 [facility] 01-22-2022 History of Present illness Narrative Images from the original note were not included. Physical Therapy [facility] Outpatient Physical Therapy Daily Note Date: 01/22/2022 Patient Name: Raza Dooley : 1975 (46 y.o.) Referring Provider (secondary): Dr. Anuel Albert Diagnosis: R ankle pain, fractures R calcaneus Treatment Diagnosis: Right ankle pain Onset Date: 08/26/21 PT Insurance Information: [facility] Total # of Visits Approved: [...] walk with heel to toe gait pattern Skilled Nursing Goals Time Frame for Skilled Nursing Goals : 18 Flarer Goal 1: Improve functional activities with LEFS score >65/80 Flarer Goal 2: Patient to hold SLS R Le x10 sec forgood dynamic stability Post Treatment Pain: 0/10 Time In: 1023 Time Out : 1102 Timed Code Treatment Minutes: 39 Minutes Total Treatment Time:39 Minutes Dena Berkowitz PTA Date: 01/22/2022 documented in this encounter [facility] [employer] Phone: 12-08-2021 Note PROCEDURE: XR FOOT R [...] authenticated by: MANUELITO LARA Date: 2021-12-08 16:34 [facility] 11-20-2021 Note PROCEDURE: XR FOOT R [...] authenticated by: MANUELITO LARA Date: 2021-11-20 11:36 [facility] 10-18-2021 Note PROCEDURE: XR FOOT R [...] by: NIRMAL LYONS Date: 2021-10-18 07:52 [facility] 09-27-2021 Note PROCEDURE: XR FOOT [...] by: NIRMAL LYONS Date: 2021-09-27 13:28 [facility] 09-27-2021 Note PROCEDURE: XR FOOT R T 2V HISTORY: Pain COMPARISON: XR ankle and foot right 09/05/2021 FINDINGS: BONES:Multiple intraoperative images demonstrates mechanical fixation of calcaneal fracture and fusion of the talocalcaneal joint via 3 screws. IMPRESSION: 1. Screw fixation of prior calcaneal fracture and fusion of the talocalcaneal joint. Electronically authenticated by: NIRMAL LYONS Date: 2021-09-27 10:56 [facility] Evaluation note No assessment inform ation available [facility] Work Phone: Summary Purpose Family [...] section and content) DATE CREATED AUTHOR 08/28/2021 [facility] dical Specialist DATE CREATED AUTHOR AUTHOR'S ORGANIZ ATION 10/24/2021 [facility] DATE CREATED AUTHOR AUTHOR'S ORGANIZ ATION 07/12/2022 [facility] DATE CREATED AUTHOR AUTHOR'S ORGANIZ ATION 01/02/2024 [facility] (unrecognized sec tion and content) Team Status: Inactive Member Role Status Dates PHYSICIAN NO FAMILY Primary Care Provider Active Anuel Albert DPM MS Attending Provider Active Team Status: Active Member Role Status Dates PHYSICIAN NO FAMILY Primary Care Provider Active Dock Clerk Relationship Specialty Start Date End Date Rodrigue Harper MD [address] [place], [place] [phone] PCP - General Internal Medicine 05/16/20 Dock 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 Relationship Specialty Start Date End Date Rodrigue Harper MD [address] [place], [place] [phone] PCP - General Internal Medicine 05/16/20 Dock Clerk Relationship Specialty Start Date End Date Rodrigue Harper MD [address] [phone] PCP - General Internal Medicine 05/16/20 Dock Clerk Relationship Specialty Start Date End Date Rodrigue Harper MD [address] [place] [id number] PCP - General Internal Medicine 05/16/20 Dock Clerk Relationship Specialty Start Date End Date Rodrigue Harper MD [address] [place] [id number] PCP - General Internal Medicine 05/16/20 Dock Clerk Relationship Specialty Start Date End Date Rodrigue Harper MD [address] [place] [id number] PCP - General Internal Medicine 05/16/20 Dock Clerk Relationship Specialty Start Date End Date Rodrigue Harper MD [address] [place] [id number] PCP - General Internal Medicine 05/16/20 Dock Clerk Relationship Specialty Start Date End Date Rodrigue Harper MD [address] [place] [id number] PCP - General Internal Medicine 05/16/20 Dock Clerk Relationship Specialty Start Date End Date Rodrigue Harper MD [address] [place] [phone] PCP - General Internal Medicine 05/16/20 Dock Clerk Relationship Specialty Start Date End Date Rodrigue Harper MD [address] [place] [phone] PCP - General Internal Medicine 05/16/20 Goals [...] BE BASED ON THE PRIMARY CLINICAL RECORDS. [facility]. provides no warranty or guarantee of the accuracy or completeness of information in this document.
== END 2024-03-11 13:05 | disposition home or self-care (01) ==
LOC: RAD 13:04
PROVIDERS: Visit Provider Podiatrist Foot & Ankle Surgery
DX: S92.001D Unspecified fracture of right calcaneus, subsequent encounter for fracture with routine healing (principal); M24.674 Ankylosis, right foot; Z98.890 Other specified postprocedural states
CPT/HCPCS: 73650

== ENCOUNTER 2024-07-01 12:59 | Outpatient (OUT) | payer OTHER, SELFPAY ==
--- NOTE | 2024-07-01 13:05 | XR_ITS ---
The [address] [address] Patient Name: RAZA DOOLEY MRN: [id number] date: 1975 Sex: M Assigned Patient Location: [facility] Current Patient Location: [facility] Accession/Order Number: [id number] Exam Date: 07/01/2024 13:35 Report Date: 07/01/2024 13:40 At the request of: ANUEL HARDING DPM Procedure: XR foot RT min 3V Right foot 3 views, calcaneus 2 views Reason for exam: Right foot/calcaneal pain. COMPARISON: Right calcaneus 03/12/2024, right foot 11/15/2023 Findings: No focal soft tissue abnormality is seen. No acute bony process is noted. There appears to be hardware fusion involving the subtalar joint similar configuration to the prior calcaneus study without hardware fracture. There is surrounding lucencies. Mild degenerative changes of the midfoot particularly involving the talonavicular joint. Mild degenerative changes involving the first MTP joint. No bony erosions. XR/XR calcaneus RT min 2V IMPRESSION: No significant change in foot findings compared to the prior studies. No acute findings. Impression dictated by: Juan Ramires Jr., D.O.07/01/2024 1:40 PM Dictation Location: [place] [address] Electronically authenticated by: [id number] Y Date: 07/01/2024 13:40
--- NOTE | 2024-07-01 13:08 | XR_ITS ---
The [address] [address] Patient Name: RAZA DOOLEY MRN: [id number] date: 1975 Sex: M Assigned Patient Location: [facility] Current Patient Location: [facility] Accession/Order Number: [id number] Exam Date: 07/01/2024 13:35 Report Date: 07/01/2024 13:40 At the request of: ANUEL HARDING DPM Procedure: XR foot RT min 3V Right foot 3 views, calcaneus 2 views Reason for exam: Right foot/calcaneal pain. COMPARISON: Right calcaneus 03/12/2024, right foot 11/15/2023 Findings: No focal soft tissue abnormality is seen. No acute bony process is noted. There appears to be hardware fusion involving the subtalar joint similar configuration to the prior calcaneus study without hardware fracture. There is surrounding lucencies. Mild degenerative changes of the midfoot particularly involving the talonavicular joint. Mild degenerative changes involving the first MTP joint. No bony erosions. XR/XR foot RT min 3V IMPRESSION: No significant change in foot findings compared to the prior studies. No acute findings. Impression dictated by: uJan Ramires Jr., D.O.07/01/2024 1:40 PM Dictation Location: [place] [address] Electronically authenticated by: [id number] Y Date: 07/01/2024 13:40
== END 2024-07-01 13:00 | disposition home or self-care (01) ==
LOC: RAD 12:59
PROVIDERS: Visit Provider Podiatrist Foot & Ankle Surgery
DX: M79.671 Pain in right foot (principal); S92.001D Unspecified fracture of right calcaneus, subsequent encounter for fracture with routine healing; M24.674 Ankylosis, right foot
CPT/HCPCS: 73630; 73650